=== PATIENT | female | born 1945 | race Caucasian/White ===

== ENCOUNTER 2022-03-24 11:01 | Emergency (ER) | payer MEDICARE ==
--- NOTE | 2022-03-24 12:39 | ER ---
Nurse's Notes [facility] Name: Angelique Avelar Age: 76 yrs Sex: Female : 1945 Arrival Date: 03/24/2022 Time: 11:07 Bed 26 Private MD: Diagnosis: Laceration without foreign body of left forearm Presentation: 03/24 12:03 Chief complaint: Patient states: I was holding a cat that did not want to go outside [facility] and it clung on to me and scratched my right arm. Coronavirus screen: At this time, the client does not indicate any symptoms associated with coronavirus-19. Ebola Screen: No symptoms or risks identified at this time. Initial Sepsis Screen: Does the patient meet any 2 criteria? No. Patient's initial sepsis screen is negative. Does the patient have a suspected source of infection? No. Patient's initial sepsis screen is negative. Risk Assessment: Do you want to hurt yourself or someone else? Patient reports no desire to harm self or others. Onset of symptoms was March 23, 2022. Care prior to arrival: None. 12:03 Method Of Arrival: Ambulatory [facility] 12:03 Acuity: NAN 4 bm7 Triage Assessment: 12:04 General: Appears in no apparent distress. comfortable, Behavior is calm, cooperative, bm7 appropriate for age. Pain: Complains of pain in dorsal aspect of left forearm Pain does not radiate. EENT: No deficits noted. No signs and/or symptoms were reported regarding the EENT system. Neuro: No deficits noted. Cardiovascular: No deficits noted. Respiratory: No deficits noted. GI: No deficits noted. No signs and/or symptoms were reported involving the gastrointestinal system. : No deficits noted. No signs and/or symptoms were reported regarding the genitourinary system. Derm: Skin is fragile, is thin, has skin tears on to the posterior forearm. Musculoskeletal: No deficits noted. No signs and/or symptoms reported regarding the musculoskeletal system. Injury Description: skin teart due to cat claws. Historical: - Allergies: 12:04 PENICILLINS; bm7 - Home Meds: 12:04 None [Active]; bm7 - PMHx: 12:04 COPD; Kidney stones; bm7 - PSHx: 12:04 None; bm7 - Immunization history:: Adult Immunizations up to date, Client reports having NOT received the Covid vaccine. - Social history:: Smoking status: Patient reports the use of cigarette tobacco products, smokes one pack cigarettes per day. Screenin:49 Abuse screen: Denies threats or abuse. Denies injuries from another. Nutritional ld1 screening: No deficits noted. Tuberculosis screening: No symptoms or risk factors identified. Fall Risk None identified. Assessment: 12:50 General: Appears in no apparent distress. comfortable, Behavior is calm, cooperative, ld1 appropriate for age. Pain: Complains of pain in dorsal aspect of left forearm Pain does not radiate. Pain currently is 6 out of 10 on a pain scale. Quality of pain is described as throbbing, Pain began suddenly, Is continuous. Neuro: Level of Consciousness is awake, alert, obeys commands, Oriented to person, place, time, situation. Cardiovascular: Capillary refill < 3 seconds Patient's skin is warm and dry. Respiratory: Airway is patent Respiratory effort is even, unlabored. GI: Abdomen is flat, non-distended. : No signs and/or symptoms were reported regarding the genitourinary system. EENT: No signs and/or symptoms were reported regarding the EENT system. Derm: No signs and/or symptoms reported regarding the dermatologic system. Musculoskeletal: No signs and/or symptoms reported regarding the musculoskeletal system. Vital Signs: 12:02 BP 161 / 63; Pulse 60; Resp 16; Temp 98.6(TE); Pulse Ox 98% on R/A; Weight 37.19 kg bm7 (R); Height 5 ft. 4 in. (162.56 cm); Pain 5/10; 12:50 BP 159 / 62; Pulse 71; Resp 18; Pulse Ox 99% on R/A; ld1 12:02 Body Mass Index 14.08 (37.19 kg, 162.56 cm) bm7 ED Course: 11:07 Patient arrived in ED. mr 11:50 Concetta Castro [facility]C [facility] kb 11:50 Smith Howe MD is Attending Physician. kb 12:04 Triage completed. bm7 12:04 Arm band placed on right wrist. bm7 12:16 Linda Ornelas, RN is Primary Nurse. 3 12:49 Patient has correct armband on for positive identification. Placed in gown. Bed in low ld1 position. Call light in reach. Side rails up X2. Pulse ox on. NIBP on. Door closed. Noise minimized. Warm blanket given. 12:49 No provider procedures requiring assistance completed. Patient did not have IV access ld1 during this emergency room visit. Administered Medications: 12:48 Drug: Tetanus-Diphtheria Toxoid Adult 0.5 ml {Branch Sales And Service Representative: [employer]. Exp: ld1 11/22/2023. Lot #: [id number]. } Route: IM; Site: right deltoid; 12:49 Follow up: Response: (VIS) Vaccine information sheet provided today. Questions and/or ld1 concerns addressed. VIS edition date: Feb 21, 2021.; No adverse reaction Medication: 12:50 Vaccine Information Statement (VIS) provided today. Questions and/or concerns ld1 addressed. VIS edition date: March 24, 2022. Outcome: 12:39 Discharge ordered by MD. coello 12:51 Discharged to home ambulatory. ld1 12:51 Condition: stable 12:51 Discharge instructions given to patient, family, Instructed on discharge instructions, follow up and referral plans. Demonstrated understanding of instructions, follow-up care. 12:51 Patient left the ED. ld1 Signatures: Concetta Castro, ADJUNCT PROFESSOR OF [employer]ORY-C ADJUNCT PROFESSOR OF [employer]ISTORY-Camilla Lancaster mr Eulalia Oconnor, RN RN bm7 Alecia Nixon, FLOYD RN ld1 Linda Ornelas, RN RN eh3
--- NOTE | 2022-03-24 12:40 | EDPHYS ---
Physician Documentation [facility] Name: Angelique Avelar Age: 76 yrs Sex: Female : 1945 Arrival Date: 03/24/2022 Time: 11:07 Bed 26 Private MD: ED Physician Smith Howe HPI: 03/24 12:31 This 76 yrs old Female presents to ER via Ambulatory with complaints of Skin Tear(s). kb 12:31 The patient has a laceration related to: scratched by cat occurred at home, and there kb are no complicating factors. The injury was accidental. The laceration(s) is(are) located on the dorsal aspect of left forearm. Onset: The symptoms/episode began/occurred yesterday. Associated signs and symptoms: The patient has no apparent associated signs or symptoms. The patient has not experienced similar symptoms in the past. The patient has not recently seen a physician. Pt reports her cat got scared of a tomcat that was outside and scratched her yesterday. States she hasn't been able to get the bleeding to stop and she also needs a tetanus shot. . Historical: - Allergies: 12:04 PENICILLINS; bm7 - Home Meds: 12:04 None [Active]; bm7 - PMHx: 12:04 COPD; Kidney stones; bm7 - PSHx: 12:04 None; bm7 - Immunization history:: Adult Immunizations up to date, Client reports having NOT received the Covid vaccine. - Social history:: Smoking status: Patient reports the use of cigarette tobacco products, smokes one pack cigarettes per day. ROS: 12:29 Constitutional: Negative for fever, chills, and weight loss. kb 12:29 Skin: Positive for laceration(s), of the dorsal aspect of left forearm. 12:29 All other systems are negative. Exam: 12:33 Constitutional: This is a well developed, well nourished patient who is awake, alert, kb and in no acute distress. Head/Face: Normocephalic, atraumatic. ENT: Moist Mucous membranes Cardiovascular: Regular rate and rhythm with a normal S1 and S2. No gallops, murmurs, or rubs. No pulse deficits. Respiratory: Respirations even and unlabored. No increased work of breathing. Talking in full sentences MS/ Extremity: Pulses equal, no cyanosis. Neurovascular intact. Full, normal range of motion. Neuro: Awake and alert, GCS 15, oriented to person, place, time, and situation. Moves all extremities. Normal gait. Psych: Awake, alert, with orientation to person, place and time. Behavior, mood, and affect are within normal limits. 12:33 Skin: injury, laceration(s), the wound is approximately 2 cm(s), of the dorsal aspect of left forearm, that can be described as clean, no foreign body, linear, without bleeding. Vital Signs: 12:02 BP 161 / 63; Pulse 60; Resp 16; Temp 98.6(TE); Pulse Ox 98% on R/A; Weight 37.19 kg bm7 (R); Height 5 ft. 4 in. (162.56 cm); Pain 5/10; 12:50 BP 159 / 62; Pulse 71; Resp 18; Pulse Ox 99% on R/A; ld1 12:02 Body Mass Index 14.08 (37.19 kg, 162.56 cm) bm7 MDM: 12:07 Patient medically screened. kb 12:29 Data reviewed: vital signs, nurses notes. Data interpreted: Pulse oximetry: on room air kb is 98 %. Interpretation: normal. Counseling: I had a detailed discussion with the patient and/or guardian regarding: the historical points, exam findings, and any diagnostic results supporting the discharge/admit diagnosis, the need for outpatient follow up, a family practitioner, to return to the emergency department if symptoms worsen or persist or if there are any questions or concerns that arise at home. 12:36 ED course: No signs of infection noted. Bleeding controlled at this time. . kb 03/24 12:08 Order name: Wound Care; Complete Time: 12:48 kb 03/24 12:08 Order name: Wound dressing; Complete Time: 12:48 kb Administered Medications: 12:48 Drug: Tetanus-Diphtheria Toxoid Adult 0.5 ml {Director Of Housing And Energy Services: [employer]. Exp: ld1 11/22/2023. Lot #: [id number]. } Route: IM; Site: right deltoid; 12:49 Follow up: Response: (VIS) Vaccine information sheet provided today. Questions and/or ld1 concerns addressed. VIS edition date: Feb 21, 2021.; No adverse reaction Disposition: 16:12 Co-signature as Attending Physician, Smith Howe MD. rn Disposition Summary: 03/24/22 12:39 Discharge Ordered Location: Home kb Condition: Stable kb Diagnosis - Laceration without foreign body of left forearm kb Followup: kb - With: Emergency Department - When: As needed - Reason: Worsening of condition Followup: kb - With: Private Physician - When: 2 - 3 days - Reason: Recheck today's complaints, Continuance of care, Re-evaluation by your physician Discharge Instructions: - Discharge Summary Sheet kb - Laceration Care, Adult, [id number] kb Forms: - Medication Reconciliation Form kb - Thank You Letter kb - Antibiotic Education kb - Prescription Opioid Use kb Signatures: Concetta Castro, FACTORY ASSEMBLER-C FACTORY ASSEMBLER-Ckb Smith Howe MD MD rn McCarthy, Brittany RN RN bm7 Alecia Nixon RN RN ld1
[2022-03-24] MEDS ORDERED: TETANUS & DIPHTHERIA TOX,ADULT 0.5 ML VIAL ONE (12:41)
[2022-03-24 13:46] VITALS: TEMP 98.6
[2022-03-24 13:49] VITALS: BP 159/62; O2SAT 99
== END 2022-03-24 12:51 | disposition home or self-care (01) ==
LOC: ER 11:01
DX: S51.812A Laceration without foreign body of left forearm, initial encounter (principal); F17.210 Nicotine dependence, cigarettes, uncomplicated; J44.9 Chronic obstructive pulmonary disease, unspecified; Z23 Encounter for immunization; Z88.0 Allergy status to penicillin
CPT/HCPCS: 90471; 90714; 99283

== ENCOUNTER 2024-03-14 08:52 | Emergency (ER) | payer MEDICARE, OTHER ==
--- OUTSIDE RECORDS SUMMARY | 2024-03-14 08:55 | XMS REPORT | Continuity of Care Document ---
Author Name Unknown Address [address] [facility] [place] [address] [facility] Address [address] [facility] [address] [place] [address] Care Team Providers Care [employer]f [employer] Worker Name Role Phone Homar Ortiz MD Primary Care Physician + [phone] GC_GCBZW_Kajacinto_S Attending Clinician Unavaila Tatum Larios Attending Clinician Samantha Singletary Attending Clinician Hayder_Mirta Attending Clinician Unavailable Doctor Unassigned, [place] Attending Clinician U marcelo Lacy RN, Celso Palencia Attending Clinician Unavail able TAMMIE QUINTANA Attending Clinician Unavailable Esme Santos MD Attending Clinician [phone] Tammie Quintana DO Attending Clinician [phone] David -Eulalia Guzmán Attending Clinician Homar Ortiz MD Attending Clinician [phone] HOMAR ORTIZ Attending Clinician Unavailable LALITHA MONK Attending Clinician Unavailable Lalitha Monk OD Attending Clinician [phone] Chris Balbuena MD Attending Clinician + [phone] HELDER DEL ROSARIO Attending Clinician UnavailFERNIE Byrnes Attending Clinician Unavailable Rosa Encarnacion Attending Clinician [phone] DENISHA APONTE Attending Clinician Unavailable Denisha Kline Attending Clinician [phone] Mary Stout Attending Clinician [phone] Lindsey Jeronimo Attending Clinician [phone] LINDSEY BOSWELL Attending Clinician Unavailable Simon DE LA CRUZ, Helder OlivaHMatt Attending Clinician + [phone], [facility] Attending Clinician Unavailable CHRIS BALBUENA Attending Clinician UnavailADRIÁN Holman Attending Clinician UnavailMIKAEL Stallings Attending Clinician Unavailhumberto mehta GC_GCBZW_Kadiyala_S Admitting Clinician Unavailmirta Singletary_A Admitting Clinician Unavailable TAMMIE QUINTANA Admitting Clinician Unavailable Tammie Quintana DO Admitting Clinician [phone] CHRIS BALBUENA Admitting Clinician Ismael flores Payers Payer Name Policy Type Policy Number Effective Date Expirati on Date Source [facility] (MEDICARE REPLACEMENT O) [id number] 2022 00:00:00 [employer] MED[employer]VANTAGE [id number] 2020 00:00:00 Problems Condition Name Condition Details Condition Category Status Onset Date Resolution Date Last Treatment Date Treating Clinician Comments Source Nicotine dependence Nicotine Dependence Problem Active 10-28 00:00: 00 [facility] Atrophic vaginitis Atrophic Vaginitis Problem Active 10-28 00:00: 00 [facility] Weight loss Weight Loss Problem Active 10-28 00:00: 00 [facility] Rheumatoid arthritis Rheumatoid Arthritis Problem Active 10-24 00:00: 00 [facility] Anxiety Anxiety Problem Active 10-24 00:00: 00 [facility] Depressive disorder Depressive Disorder Problem Active 10-24 00:00: 00 [facility] Abnormal heart beat Abnormal Heart Beat Problem Active 10-24 00:00: 00 [facility] Troponin I above reference range Troponin I above reference range Disease Active 2021-07 00:00: 00 [facility] Elevated brain natriureti c peptide (BNP) level Elevated brain natriureti c peptide (BNP) level Disease Active 2021-07 00:00: 00 [facility] Atrial fibrillati on with RVR Atrial fibrillati on with RVR Disease Active 2021-07 00:00: 00 [facility] Weight loss Weight loss Disease Active 2021-07 00:00: 00 [facility] Essential hypertensi on Essential hypertensi on Disease Active 12-05 00:00: 00 [facility] Arthritis, multiple joint involvemen t Arthritis, multiple joint involvemen t Disease Active 12-05 00:00: 00 [facility] Chronic midline low back pain without sciatica Chronic midline low back pain without sciatica Disease Active 12-05 00:00: 00 [facility] Social alcohol use Social alcohol use Disease Active 12-05 00:00: 00 [facility] Elevated liver enzymes Elevated liver enzymes Disease Active 12-05 00:00: 00 [facility] Nicotine dependence with current use Nicotine dependence with current use Disease Active 12-05 00:00: 00 [facility] Disease Active 12-05 00:00: 00 [facility] 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 Disease Active 12-05 00:00: 00 [facility] Nicotine dependence with current use Nicotine dependence with current use Disease Active 12-05 00:00: 00 [facility] Tinnitus of both ears Tinnitus of both ears Disease Active -14 00:00: 00 [facility] Anxiety Anxiety Disease Active -14 00:00: 00 [facility] Dry eye syndrome of both eyes Dry eye syndrome of both eyes Disease Active 2-09 00:00: 00 [facility] Decreased libido Decreased libido Disease Active 2017-07 00:00: 00 [facility] Dyspareuni a in female Dyspareuni a in female Disease Active 2017-07 00:00: 00 [facility] Vaginal atrophy Vaginal atrophy Disease Active 2017-07 00:00: 00 [facility] Pulmonary nodules Pulmonary nodules Disease Active 04-13 00:00: 00 [facility] Coronary artery calcificat ion seen on CAT scan Coronary artery calcificat ion seen on CAT scan Disease Active 04-13 00:00: 00 [facility] Osteoporos is Osteoporos is Disease Active 04-11 00:00: 00 [facility] Encounter to establish care with new doctor Encounter to establish care with new doctor Disease Active 04-06 00:00: 00 Overview: Formattin g of this note might be different from the original. Added automatic ally from request for surgery [id number] [facility] Cervical radiculopa thy Cervical radiculopa thy Disease Active 04-03 00:00: 00 [facility] Right-side d chest pain Right-side d chest pain Disease Active 04-03 00:00: 00 [facility] Tobacco use Tobacco use Disease Active 04-03 00:00: 00 [facility] Hyperchole sterolemia Hyperchole sterolemia Disease Active 03-25 00:00: 00 [facility] Microscopi c hematuria Microscopi c hematuria Disease Active 03-06 00:00: 00 [facility] Chronic left flank pain Chronic left flank pain Disease Active 03-01 00:00: 00 [facility] Neck pain Neck pain Disease Active 03-01 00:00: 00 [facility] Chronic right shoulder pain Chronic right shoulder pain Disease Active 03-01 00:00: 00 [facility] Postcoital bleeding Postcoital Bleeding Problem Active 2013-07 00:00: 00 [facility] Osteoarthr itis, multiple sites Osteoarthr itis, multiple sites Disease Active Overview: Formattin g of this note might be different from the original. Neck, shoulders [facility] COPD without exacerbati on COPD without exacerbati on Disease Active [facility] Allergies, Adverse Reactions, Alerts Allergy Name Allergy Type Status Severity Reaction(s) Onset Date Inactive Date Treating Clinician Comments Source ATORVAST ATIN DRUG INGREDI Active Diarrhea 10-24 00:00: 00 [facility] Atorvast atin Propensi ty to adverse reaction s to drug Active Nausea and/or Vomiting 10-24 00:00: 00 [facility] Atorvast atin Propensi ty to adverse reaction s Active Diarrhea 10-24 00:00: 00 [facility] Social History Social Habit Start Date Stop Date Quantity Comments Source History of tobacco use Cigarette Smoker [facility] History SDOH Alcohol Frequency [facility] History SDOH Alcohol Std Drinks [facility] History SDOH Alcohol Binge [facility] History SDOH Food Worry 2022-05-28 00:00:00 2022-05-28 00:00:00 1 [facility] History SDOH Food Scarcity 2022-05-28 00:00:00 2022-05-28 00:00:00 1 [facility] History SDOH Transport Med 2022-05-28 00:00:00 2022-05-28 00:00:00 2 [facility] History SDOH Transport Non-Med 2022-05-28 00:00:00 2022-05-28 00:00:00 2 [facility] Exposure to SARS-CoV-2 (event) 2022-05-15 00:00:00 2022-05-25 21:46:00 Not sure [facility] Tobacco Comment 2022-05-25 00:00:00 2022-05-25 00:00:00 Smokes 1 pack a day [facility] Tobacco use and exposure 2022-05-25 00:00:00 2022-05-25 00:00:00 Smokeless tobacco non-user [facility] Alcohol intake 2022-05-25 00:00:00 2022-05-25 00:00:00 Current drinker of alcohol (finding) [facility] Alcohol Comment 2018-03-01 00:00:00 2018-03-01 00:00:00 10 drinks per year [facility] Sex Assigned At 1945 00:00:00 1945 00:00:00 [facility] Smoking Status Start Date Stop Date Source Heavy Tobacco Smoker [facility] Smokes tobacco daily 2022-05-25 00:00:00 [facility] Occasional tobacco smoker 2018-05-31 00:00:00 [facility] Medications Ordered Medication Name Filled Medication Name Start Date Stop Date Current Medication? Ordering Clinician Indication Dosage Frequency Signature (SIG) Comments Components Source apixaban (ELIQUIS) tablet 5 mg 2021-07 02:00: 00 Yes 5mg 5 mg, Oral, BID, First dose on Wed05/26/22 at 2000, Until Discontinu ed, Routine
Indicatio ns: Non-Valvul ar Atrial Fibrillati on [facility] guaiFENesin 400 mg tablet 2021-07 00:00: 00 Yes [id number] 400mg Take 1 tablet by mouth every 4 (four) hours. [facility] Budesonide 90 mcg/actuati on aerosol powder 2021-07 00:00: 00 Yes [id number] 1{puff} Inhale 1 Puff in the morning and 1 Puff in the evening. [facility] albuterol sulfate 90 mcg/actuati on AePB 2021-07 00:00: 00 Yes [id number] 2{puff} Inhale 2 Puffs every 4 (four) hours as needed for Other (SOB). [facility] nicotine 21 mg/24 hr patch 2021-07 00:00: 00 09-25 05:59 :00 No [id number] 1{patch } Apply 1 Patch to area(s) every 24 (twenty-fo ur) hours for 120 days. [facility] apixaban 5 mg tablet 2021-07 00:00: 00 06-27 05:59 :00 No [id number] 5mg Take 1 tablet by mouth in the morning and 1 tablet in the evening. Do all this for 30 days. Indication s: atrial fibrillati on [facility] docusate 100 mg capsule 2021-07 00:00: 00 06-27 05:59 :00 No [id number] 100mg Take 1 capsule by mouth in the morning and 1 capsule in the evening. Do all this for 30 days. [facility] metoprolol succinate XL 25 mg 24 hr tablet 2021-07 00:00: 00 06-27 05:59 :00 No [id number] 25mg Take 1 tablet by mouth in the morning and 1 tablet in the evening. Do all this for 30 days. [facility] predniSONE 20 mg tablet 2021-07 00:00: 00 05-31 05:59 :00 No [id number] 40mg Take 2 tablets by mouth at bedtime for 3 days. [facility] ipratropium -albuteroL (DUONEB) 0.5 mg-3 mg(2.5 mg base)/3 mL nebulizer solution 3 mL 2021-07 17:45: 00 Yes 3mL 3 mL, Inhalation , QIDPRN, Starting on Wed05/26/22 at 1145, Until Discontinu ed, Routine, Wheezing [facility] enoxaparin (LOVENOX) injection 40 mg 2021-07 15:00: 00 05-26 22:25 :05 No 40mg 40 mg, Subcutaneo us, DAILY, First dose on Wed05/26/22 at 0900, Until Discontinu ed, Routine [facility] citrus select contrast media (CITRUS SELECT) oral liquid 700 mL 2021-07 08:15: 00 05-26 08:15 :00 No [id number] 700mL 700 mL, Oral, ONCE, 1 dose, On Wed05/26/22 at 0215, Routine [facility] iopamidol (ISOVUE 370-500 mL) injection 75 mL 2021-07 08:15: 00 05-26 08:15 :00 No [id number] 75mL 75 mL, Intravenou s, ONCE, 1 dose, On Wed05/26/22 at 0215, Routine [facility] nicotine (NICODERM) 21 mg/24 hr patch 1 Patch 2021-07 05:30: 00 Yes 1{patch } 1 Patch, Topical, Administer over 24 Hours, Q24H, First dose on Wed05/25/22 at 2330, Until Discontinu ed, Routine [facility] NaCl 0.9% (NS) IV infusion 1,000 mL 2021-07 05:30: 00 Yes 1000mL at 100 mL/hr, IV Infusion, CONTINUOUS , Starting on Wed05/25/22 at 2330, Until Discontinu ed, Routine [facility] predniSONE (DELTASONE) tablet 40 mg 2021-07 05:30: 00 05-30 02:59 :00 No 40mg 40 mg, Oral, QHS, 4 doses, First dose on Wed05/25/22 at 2330, Last dose on Wed05/28/22 at 2100, Routine [facility] ipratropium -albuteroL (DUONEB) 0.5 mg-3 mg(2.5 mg base)/3 mL nebulizer solution 3 mL 2021-07 05:30: 00 05-26 17:35 :42 No 3mL 3 mL, Inhalation , QID, First dose on Wed05/25/22 at 2330, Until Discontinu ed, Routine [facility] budesonide (PULMICORT RESPULE) nebulizer solution 0.5 mg 2021-07 05:30: 00 05-26 17:35 :19 No .5mg 0.5 mg, Inhalation , BID, First dose on Wed05/25/22 at 2330, Until Discontinu ed, Routine [facility] metoprolol succinate XL (TOPROL XL) tablet 25 mg 2021-07 04:30: 00 Yes 25mg 25 mg, Oral, BID, First dose on Wed05/25/22 at 2230, Until Discontinu ed, Routine [facility] docusate (COLACE) capsule 100 mg 2021-07 04:30: 00 Yes 100mg 100 mg, Oral, BID, First dose on Wed05/25/22 at 2230, Until Discontinu ed, Routine [facility] aspirin E.C. (ECOTRIN) tablet 325 mg 2021-07 04:30: 00 05-26 22:25 :05 No 325mg 325 mg, Oral, QAM WITH BREAKFAST, First dose on Wed05/25/22 at 2230, Until Discontinu ed, Routine [facility] ondansetron (ZOFRAN (PF)) injection 4 mg 2021-07 04:17: 41 Yes 4mg 4 mg, Slow IV Push, Q6HPRN, Starting on Wed05/25/22 at 2217, Until Discontinu ed, Routine, Nausea and Vomiting (N/V) [facility] aspirin 81 mg Cap 2021-07 21:49: 41 05-25 00:00 :00 No 81mg Take 81 mg by mouth. Patient takes differentl y; takes 1 cap weekly [facility] AMLODIPINE 5 mg tablet 2021-07 0- 00:00: 00 Yes [id number] TAKE ONE (1) TABLET(S) BY MOUTH ONCE A DAY. [facility] TIZANIDINE 2 mg tablet 02-09 00:00: 00 05-25 00:00 :00 No [id number] TAKE ONE (1) TABLET(S) BY MOUTH EVERY EIGHT HOURS NEEDED FOR MUSCLE SPASMS. [facility] DICLOFENAC SODIUM 1 % gel -13 00:00: 00 05-25 00:00 :00 No [id number] 103 APPLY FOUR GRAMS TO AFFECTED AREA(S) FOUR TIMES DAILY. [facility] DULoxetine 20 mg capsule 23 00:00: 00 05-25 00:00 :00 No [id number] 20mg Take 1 capsule by mouth 2 (two) times daily. [facility] aspirin 81 mg Cap 20 09:21: 38 Yes 81mg Take 81 mg by mouth. Patient takes differentl y; takes 1 cap weekly [facility] Diclofenac Sodium (VOLTAREN) 1 % gel 12-05 00:00: 00 Yes [id number] Apply to area(s) 4 (four) times daily. Apply 4 g qid [facility] alendronate 70 mg tablet 20 00:00: 00 05-25 00:00 :00 No [id number] 70mg Take 1 tablet by mouth weekly. [facility] rosuvastati n 10 mg tablet 12-05 00:00: 05-25 00:00 :00 No [id number] 10mg Take 1 tablet by mouth at bedtime. [facility] DULoxetine 20 mg CDRS 20 00:00: 05-25 00:00 :00 No [id number] 20mg Take 20 mg by mouth 2 (two) times daily. [facility] nicotine 14 mg/24 hr patch 12-05 00:00: 05-25 00:00 :00 No [id number] 1{patch } Apply 1 Patch to area(s) every 24 (twenty-fo ur) hours. Apply 21mg patch daily x 6 weeks; then apply 14mf patch daily x 2 weeks; then apply 7mg patch daily x 2 weeks. Stop smoking on initiation of therapy [facility] nicotine 21 mg/24 hr patch 12-05 00:00: 05-25 00:00 :00 No [id number] 1{patch } Apply 1 Patch to area(s) daily. Apply 21mg patch daily x 6 weeks; then apply 14mf patch daily x 2 weeks; then apply 7mg patch daily x 2 weeks. Stop smoking on initiation of therapy [facility] nicotine 7 mg/24 hr patch 20 00:00: 05-25 00:00 :00 No [id number] 1{patch } Apply 1 Patch to area(s) every 24 (twenty-fo ur) hours. Apply 21mg patch daily x 6 weeks; then apply 14mg patch daily x 2 weeks; then apply 7mg patch daily x 2 weeks. Stop smoking on initiation of therapy [facility] amLODIPine 5 mg tablet 12-05 00:00: 00 04-21 00:00 :00 No [id number] 2.5mg Take 0.5 tablets by mouth daily. [facility] tiZANidine 2 mg tablet 20 00:00: 02-09 00:00 :00 No [id number] 1mg Take 0.5 tablets by mouth every 8 (eight) hours as needed (muscle spasms). [facility] ondansetron (ZOFRAN) 4 mg tablet 08-15 00:00: 00 05-25 00:00 :00 No [id number] 4mg Take 1 tablet by mouth every 8 (eight) hours as needed for Nausea and Vomiting (N/V). [facility] meloxicam 7.5 mg tablet 2020-07 00:00: 00 05-25 00:00 :00 No [id number] 7.5mg Take 1 tablet by mouth once daily as needed (back pain). [facility] Calcium-Cho lecalcifero l, D3, (CALCIUM 600 + D,3,) 600 mg calcium- 200 unit Cap 08-27 00:00: 00 05-25 00:00 :00 No 1{capsu le} Take 1 capsule by mouth daily. (OR YOU CAN USE CALCIUM CITRATE PLUS D) [facility] carvedilol 25 mg tablet Take 1 tablet twice a day by oral route. carvedilol 25 mg tablet Take 1 tablet twice a day by oral route. No 1 BID carvedilol 25 mg tablet Take 1 tablet twice a day by oral route. [facility] Eliquis 2.5 mg tablet TAKE ONE (1) TABLET(S) BY MOUTH TWICE A DAY. Eliquis 2.5 mg tablet TAKE ONE (1) TABLET(S) BY MOUTH TWICE A DAY. No Eliquis 2.5 mg tablet TAKE ONE (1) TABLET(S) BY MOUTH TWICE A DAY. [facility] estradiol 0.01% (0.1 mg/gram) vaginal cream INSERT 0.5 GRAMS VAGINALLY 3 TIMES A WEEK AT BEDTIME. estradiol 0.01% (0.1 mg/gram) vaginal cream INSERT 0.5 GRAMS VAGINALLY 3 TIMES A WEEK AT BEDTIME. No .5g Q56H estradiol 0.01% (0.1 mg/gram) vaginal cream INSERT 0.5 GRAMS VAGINALLY 3 TIMES A WEEK AT BEDTIME. [facility] folic acid folic acid No folic acid [facility] Lumigan 0.01 % eye drops INSTILL ONE (1) DROP(S) IN EACH EYE ONCE A DAY AT BEDTIME. Lumigan 0.01 % eye drops INSTILL ONE (1) DROP(S) IN EACH EYE ONCE A DAY AT BEDTIME. No Lumigan 0.01 % eye drops INSTILL ONE (1) DROP(S) IN EACH EYE ONCE A DAY AT BEDTIME. [facility] paroxetine 10 mg tablet TAKE ONE (1) TABLET(S) BY MOUTH ONCE A DAY IN THE MORNING. paroxetine 10 mg tablet TAKE ONE (1) TABLET(S) BY MOUTH ONCE A DAY IN THE MORNING. No paroxetine 10 mg tablet TAKE ONE (1) TABLET(S) BY MOUTH ONCE A DAY IN THE MORNING. [facility] Restasis 0.05 % eye drops in a dropperette INSTILL ONE (1) AFFECTED EYE(S) TWICE A DAY. Restasis 0.05 % eye drops in a dropperette INSTILL ONE (1) AFFECTED EYE(S) TWICE A DAY. No Restasis 0.05 % eye drops in a dropperett e INSTILL ONE (1) AFFECTED EYE(S) TWICE A DAY. [facility] Vital Signs Vital Name Observation Time Observation Value Comments S ource BP Systolic 2023-10-25 00:00:00 150 mm[Hg] [facility] BMI (Body Mass Index) 2023-10-25 00:00:00 14.7 kg/m2 [facility] BP Diastolic 2023-10-25 00:00:00 73 mm[Hg] [facility] Body Weight 2023-10-25 00:00:00 85.6 [lb_av] [facility] Height 2023-10-25 00:00:00 64 [in_i] [facility] Systolic blood pressure 2022-05-27 18:29:00 136 mm[Hg] [facility] Diastolic blood pressure 2022-05-27 18:29:00 68 mm[Hg] [facility] Heart rate 2022-05-27 18:29:00 60 /min [facility] Body temperature 2022-05-27 18:29:00 36.39 Polly [facility] Respiratory rate 2022-05-27 18:29:00 18 /min [facility] Oxygen saturation in Arterial blood by Pulse oximetry 2022-05-27 18:29:00 98 /min [facility] Body weight 2022-05-27 09:46:00 43.5 kg [facility] BMI 2022-05-27 09:46:00 16.46 kg/m2 [facility] Body height 2022-05-26 04:30:00 162.6 cm [facility] Procedures Procedure Date / Time Performed Performing Clinician Source US, transvaginal 2023-10-29 00:00:00 [facility] MAMMO, screening, digital, bilateral 2023-10-25 00:00:00 [facility] AUTHORIZATION FOR RELEASE OF PHI 2022-07-31 06:01:00 Doctor Unassigned, [place] [facility] BASIC METABOLIC PANEL (NA, K, CL, CO2, GLUCOSE, BUN, CREATININE, CA) 2022-05-27 09:13:00 Bobby Willis [facility] CBC WITH DIFF 2022-05-27 09:13:00 [facility]-B[facility] 2022-05-27 09:13:00 Kendrick Willis [facility] TROPONIN I 2022-05-27 05:26:00 Bobby Willis [facility] TROPONIN I 2022-05-26 23:49:00 Bobby Willis [facility] TRANSTHORACIC ECHO (TTE) COMPLETE 2022-05-26 18:02:00 Emse Santos [facility] PREALBUMIN, SERUM 2022-05-26 11:21:00 [facility] PHOS[facility] 2022-05-26 11:21:00 Esme Santos [facility] CREATINE KINASE 2022-05-26 11:21:00 Esme Santos [facility] URIC ACID 2022-05-26 11:21:00 Esme Santos [facility] MAGNESIUM 2022-05-26 11:21:00 Esme Santos [facility] TROPONIN I 2022-05-26 11:21:00 Esme Santos [facility] THYROID STIMULATING HORMONE 2022-05-26 11:21:[address] [facility] COMP. METABOLIC PANEL ([id number]) 2022-05-26 11:21:00 Tom juan m [facility] LIPID PANEL ([id number])(TOTAL CHOLESTEROL, TRIGLYCERIDES, HDL) 2022-05-26 11:21:00 Tom juan m [facility] SEDIMENTATION RATE 2022-05-26 11:21:00 Esme Santos [facility] CBC WITH DIFF 2022-05-26 11:21:00 [facility] GLYCOSYLATED HEMOGLOBIN (A1C) 2022-05-26 11:21:[address] [facility] N-TERMINAL PRO-BNP 2022-05-26 11:21:[address] [facility] PROCALCITONIN 2022-05-26 11:21:00 Es[facility] ABDOMEN PELVIS W CONTRAST 2022-05-26 07:45:[address] [facility] CT THORAX W CONTRAST 2022-05-26 07:45:13 Sailaja Santos [facility] URINE DRUG (IMMUNOASSAY) - COMPREHENSIVE DRUG SCREEN 2022-05-26 06:25:[address] [facility] URINALYSIS 2022-05-26 06:25:00 Esme Santos [facility] URINE CULTURE 2022-05-26 06:25:00 Esme [facility] UREA NITROGEN, URINE RANDOM 2022-05-26 06:25:00 Tom juan m [facility] SODIUM, URINE R[place]OM 2022-05-26 06:25:00 Sailaja Santos [facility] PROTEIN CREAT RATIO URINE RANDOM 2022-05-26 06:25:[address] [facility] RESPIRATORY PANEL BY PCR 2022-05-26 04:53:[address] [facility] MRSA / MSSA SCREEN BY ISADORA SO 2022-05-26 04:51:00 Tom, Adnan [facility] Hysteroscopy [facility] Encounters Start Date/Time End Date/Time Encounter Type Admission Type Attending [facility] Facility Care Department Encounter ID Source 2023-10-29 00:00:00 2023-10-29 00:00:00 Leydi Martin MD: [address], [place] [address] , Ph. GC_GCBZW_Ka diyala_S [facility] - GC_GCBZW_Maritza [facility]* [id number] [facility] 2023-10-25 00:00:00 2023-10-25 00:00:00 PHUONG Cuevas: [address], [place] [address] , Ph. GC_GCBZW_Ka diyala_S [facility] - GC_GCBZW_[facility]* [id number] [facility] 2023-10-13 00:00:00 2023-10-13 00:00:00 Outpatient GC_GCBZW_Ka diyala_S PRIV PRIV [id number] [facility] 2023-09-29 00:00:00 2023-09-29 00:00:00 Outpatient GC_GCBZW_Ka diyala_S PRIV PRIV [id number] [facility] 2023-09-08 15:00:00 2023-09-08 16:00:00 Annual D2Me Sera Iyanlindseye 2.16.840. 1.703104. [id number] [id number] 2.16.840.1. [id number] [facility] 2023-05-14 00:00:00 2023-05-14 00:00:00 Outpatient GC_GCBZW_Ka diyala_S PRIV PRIV [id number] [facility] 2022-09-11 14:30:00 2022-09-11 15:30:00 KISHOR Singletary 2.16.840. [id number]. [id number] [id number] 2.16.840.1. 671128.4.6. [id number] E56 [facility] 2022-09-09 00:00:00 2022-09-09 00:00:00 Outpatient Tumelson_A [facility] [id number] [facility] 2022-09-09 00:00:00 2022-09-09 00:00:00 Outpatient Tumelson_A [facility] [id number] [facility] 2022-07-31 00:00:00 2022-07-31 00:00:00 Orders Only Doctor Unassigned, [place] [facility] 1.2840.114 350.1.13.10 4.2.7.2.686 [id number] [facility] 2022-05-28 00:00:00 2022-05-28 00:00:00 Transition of Care Celso Lacy 1.2.840.114 350.1.13.10 4.2.7.2.686 [id number] [facility] 2022-05-25 21:19:00 2022-05-27 15:13:00 Outpatient TAMMIE CRUZ [facility] [id number] [facility] 2022-05-25 21:19:00 2022-05-27 15:13:00 Hospital Encounter Esme Santos David [facility] 1.2.840.114 350.1.13.10 4.2.7.2.686 [id number] [facility] 2022-05-22 16:30:00 2022-05-22 17:30:00 KISHOR Hernandez 2.16.840. [id number]. 4.6.83618 [id number] 2.16.840.1. 987052.4.6. [id number] [facility] 2022-04-21 00:00:00 2022-04-21 00:00:00 Homar De La Garza [facility] 1.2.840.114 350.1.13.10 4.2.7.2.686 [id number] [facility] 2022-03-06 10:00:00 2022-03-06 10:00:00 Outpatient R HOMAR ORTIZ [facility] [id number] [facility] 2022-03-06 10:00:00 2022-03-06 10:00:00 Outpatient R HOMAR ORTIZ [facility] [id number] [facility] 2022-02-02 10:00:00 2022-02-02 10:00:00 Outpatient LALITHA GROVES [facility] [id number] [facility] 2022-02-01 00:00:00 2022-02-01 00:00:[address] [facility] 1.2.840.114 350.1.13.10 4.2.7.2.686 [id number] [facility] 2022-01-30 08:01:00 2022-01-30 08:01:00 Outpatient DMG DM [id number] [facility] 2022-01-28 00:00:00 2022-01-28 00:00:00 Homar De La Garza [facility] 1.2.840.114 350.1.13.10 4.2.7.2.686 [id number] [facility] 2022-01-14 09:00:00 2022-01-14 09:00:00 Outpatient DMG DMG [id number] [facility] 2022-01-12 09:00:00 2022-01-12 09:11:40 Outpatient LALITHA GROVES [facility] [id number] [facility] 2022-01-12 09:00:00 2022-01-12 09:11:40 [facility] 1.2.840.114 350.1.13.10 4.2.7.2.686 [id number] [facility] 2021-12-05 09:00:00 2021-12-05 10:10:37 Outpatient R HOMAR ORTIZ [facility] [id number] [facility] 2021-12-05 09:00:00 2021-12-05 10:10:37 Office Visit Homar Ortiz [facility] 1.2.840.114 350.1.13.10 4.2.7.2.686 [id number] [facility] 2021-12-05 09:00:00 2021-12-05 10:10:37 Outpatient R HOMAR ORTIZ [facility] [id number] [facility] 2021-12-05 00:00:00 2021-12-05 00:00:00 Telephone Homar Ortiz [facility] 1.2.840.114 350.1.13.10 4.2.7.2.686 [id number] [facility] 2021-11-28 00:00:00 2021-11-28 00:00:00 Refill Homar Ortiz [facility] 1.2.840.114 350.1.13.10 4.2.7.2.686 [id number] [facility] 2021-11-18 14:00:00 2021-11-18 14:00:00 Outpatient R HOMAR ORTIZ [facility] [id number] [facility] 2021-11-05 13:00:00 2021-11-05 13:00:00 Outpatient R HOMAR ORTIZ [facility] [id number] [facility] 2021-10-29 00:00:00 2021-10-29 00:00:00 Telephone Chris Balbuena [facility] 1.2.840.114 350.1.13.10 4.2.7.2.686 [id number] [facility] 2021-10-28 00:00:00 2021-10-28 00:00:00 Refill Chris Balbuena [facility] 1.2.840.114 350.1.13.10 4.2.7.2.686 [id number] [facility] 2021-10-24 00:00:00 2021-10-24 00:00:00 Orders Only Doctor Unassigned, [place] [facility] 1.2.840.114 350.1.13.10 4.2.7.2.686 [id number] [facility] 2021-10-23 10:00:00 2021-10-23 10:00:00 Outpatient HELDER FERRER [facility] [id number] [facility] 2021-10-23 10:00:00 2021-10-23 10:00:00 Outpatient HELDER FERRER [facility] [id number] [facility] 2021-10-23 10:00:00 2021-10-23 10:00:00 Outpatient HELDER FERRER [facility] [id number] [facility] 2021-10-17 11:00:00 2021-10-17 11:00:00 Outpatient FERNIE CARRILLO [facility] [id number] [facility] 2021-10-16 09:00:00 2021-10-16 09:00:00 Outpatient HELDER FERRER [facility] [id number] [facility] 2021-10-13 00:00:00 2021-10-13 00:00:00 Orders Only Doctor Unassigned, [place] [facility] 1.2840.114 350.1.13.10 4.2.7.2.686 [id number] [facility] 2021-08-15 10:03:00 2021-08-15 14:28:00 Emergency Rosa Gregg [facility] 1.2840.114 350.1.13.10 4.2.7.2.686 [id number] [facility] 2021-08-15 09:00:00 2021-08-15 09:27:34 Outpatient DENISHA EASLEY [facility] [id number] [facility] 2021-08-15 09:00:00 2021-08-15 09:20:00 Urgent Care Denisha Aponte Cathy [facility] 1.840.114 350.1.13.10 4.2.7.2.686 [id number] [facility] 2021-08-15 09:00:00 2021-08-15 09:00:00 Outpatient DENISHA EASLEY [facility] [id number] [facility] 2021-08-15 00:00:00 2021-08-15 00:00:00 Orders Only Doctor Unassigned, [place] [facility] 1.2840.114 350.1.13.10 4.2.7.2.686 [id number] [facility] 2021-05-30 12:05:12 2021-05-30 12:35:12 Office Visit Lindsey Boswell [facility] 1.2.840.114 350.1.13.10 4.2.7.2.686 [id number] [facility] 2021-05-30 12:30:00 2021-05-30 12:30:00 Outpatient R LINDSEY BOSWELL [facility] [id number] [facility] 2021-05-30 12:30:00 2021-05-30 12:30:00 Outpatient LINDSEY GOLD [facility] [id number] [facility] 2021-05-05 00:00:00 2021-05-05 00:00:00 RefChris Villareal A [facility] 1.2.840.114 350.1.13.10 4.2.7.2.686 [id number] [facility] 2021-04-28 10:00:00 2021-04-28 10:00:00 Outpatient HELDER FERRER [facility] [id number] [facility] 2021-04-28 10:00:00 2021-04-28 10:00:00 Outpatient R HELDER DEL ROSARIO [facility] [id number] [facility] 2021-04-25 00:00:00 2021-04-25 00:00:00 Telephone Helder Del Rosario [facility] 1.2.840.114 350.1.13.10 4.2.7.2.686 [id number] [facility] 2021-04-10 10:15:00 2021-04-10 10:15:00 Outpatient HELDER DEL ROSARIO [facility] [id number] [facility] 2021-04-04 00:00:00 2021-04-04 00:00:00 Telephone Helder Del Rosario [facility] 1.2.840.114 350.1.13.10 4.2.7.2.686 [id number] [facility] 2021-03-31 13:00:00 2021-03-31 23:59:00 Hospital Encounter Helder Del Rosario [facility] 1.2.840.114 350.1.13.10 4.2.7.2.686 [id number] [facility] 2021-03-31 13:54:17 2021-03-31 14:09:17 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 Visit 2, Adc Lab Helder Del Rosario [facility] 1.2.840.114 350.1.13.10 4.2.7.2.686 [id number] [facility] 2021-03-31 11:30:00 2021-03-31 12:13:07 Outpatient HELDER FERRER [facility] [id number] [facility] 2021-03-31 11:18:34 2021-03-31 12:13:07 Office Visit Helder Del Rosario [facility] 1.2.840.114 350.1.13.10 4.2.7.2.686 [id number] [facility] 2021-03-31 11:30:00 2021-03-31 11:30:00 Outpatient HELDER FERRER [facility] [id number] [facility] 2021-01-23 00:00:00 2021-01-23 00:00:00 Outpatient CHRIS DIAZ [facility] [id number] [facility] 2021-01-10 00:00:00 2021-01-10 00:00:00 Outpatient CHRIS DIAZ [facility] [id number] [facility] 2020-12-20 10:00:00 2020-12-20 10:00:00 Outpatient ADRIÁN SCHULTZ [facility] [id number] [facility] 2020-10-24 09:30:00 2020-10-24 09:30:00 Outpatient HELDER FERRER [facility] [id number] [facility] 2020-10-23 00:00:00 2020-10-23 00:00:00 Outpatient R MIKAEL PARKER [facility] [id number] [facility] 2020-10-16 13:00:00 2020-10-16 13:00:00 Outpatient FERNIE CARRILLO [facility] [id number] [facility] 2020-09-17 00:00:00 2020-09-17 00:00:00 Outpatient CHRIS DIAZ [facility] [id number] [facility] 2020-08-27 13:00:00 2020-08-27 13:00:00 Outpatient CHRIS DIAZ [facility] [id number] [facility] 2020-01-11 10:12:34 2020-01-11 23:59:00 Outpatient CHRIS DIAZ [facility] [id number] [facility] 2019-10-23 13:30:00 2019-10-23 13:30:00 Outpatient Alison DEL ROSARIOHELDER BOCANEGRA [facility] [id number] [facility] 2019-10-02 09:30:00 2019-10-02 09:30:00 Outpatient CHRIS DIAZ [facility] [id number] [facility] 2019-09-28 11:00:00 2019-09-28 11:00:00 Outpatient Alison DEL ROSARIOHELDER BOCANEGRA [facility] [id number] [facility] Results Test Description Test Time Test Comments Results Result Co mments Source [facility] MedicalUrinalysis macro (dipstick) panel - [id number] 10:26:03* Test Item Value Reference Range Interpretation Comme nts Leukocytes (test code = Leukocytes) Negative Nitrite (test code = Nitrite) negative Urobilinogen (test code = Urobilinogen) Normal Protein (test code = Protein) Negative pH (test code = pH) 6.0 Blood (test code = Blood) Non-Hemolyzed: Moderate Specific Cambria (test code = Specific Cambria) 1.020 Ketone (test code = Ketone) Negative Bilirubin (test code = Bilirubin) Negative Glucose (test code = Glucose) Negative Appearance (test code = Appearance) Clear Color (test code = Color) Yellow Arpan Holleypap, LB + [id number] 00:00:00* Test Item Value Reference Range Interpretation Comme nts LMP date: (test code = LMP date:) 07/19/1991 Pap, liquid-based (test code = Pap, liquid-based) nilm nilm source (liquid-based cytology): (test code = source (liquid-based cytology):) cervical (which includes endocervical) HPV high risk DNA (non 16/18) (test code = HPV high risk DNA (non 16/18)) not detected not detected HPV high risk DNA type 16 (test code = HPV high risk DNA type 16) not detected not detected HPV high risk DNA type 18 (test code = HPV high risk DNA type 18) not detected not detected Arpan Amin [id number] 00:37:25* Test Item Value Reference Range Interpretation Comments TROPONIN I (test code = 6383478296) 0.016 ng/mL See_Comment [Automated message] The system which generated this result transmitted reference range: <=0.034. The reference range was not used to interpret this result as normal/abnormal. STIVEN (test code = STIVEN) Reference (Normal) Range (defined by the 99th percentile reference limit): <= 0.034 ng/mL Note: Cardiac troponin begins to rise 3-4 hours after the onset of ischemia. Repeat in 4-6 hours if the sample was drawn within 3-4 hours of the onset of the symptom and found normal. Diagnosis of myocardial injury is made with acute changes in cTn concentrations with at least one serial sample above the 99th percentile upper reference limit (URL), taken together with the patient's clinical presentation. Biotin has been reported to cause a negative bias, interpret results relative to patient's use of biotin. Lab Interpretation (test code = 86532-5) Normal [facility] 22:46:58* Test Item Value Reference Range Interpretation Comme nts Height (test code = 0711447856) in Weight (test code = 5464876105) lbs Systolic BP (test code = 2746441598) mmHg Diastolic BP (test code = 4439677424) mmHg Heart Rate (test code = 0421783187) bpm BSA (test code = 9937843904) 1.39 m2 Ao root diam (test code = 0603353537) 3.00 cm Aortic root (test code = 3397506515) 3.0 cm Ao root annulus (test code = 0915051082) 3.0 cm LVOT diameter (test code = 4041303271) 1.82 cm LVOT area (test code = 8573009347) 2.60 cm2 LVIDD (test code = 0358963036) 3.10 cm Left Ventricular End Diastolic Volume by Teichholz Method (test code = 7532650) 38.4 mL IVS (test code = 3127381279) 1.23 cm Interventricular Septum Diastolic Thickness by 2D (test code = 6362410) 1.23 cm LVPWD (test code = 1923585650) 1.23 cm PW (test code = 7890544059) 1.23 cm 0.6-1.1 EF(Teich) (test code = 5657469375) 65.50 % LVIDS (test code = 4456648847) 2.03 cm Left Ventricular End Systolic Volume by Teichholz Method (test code = 5334862) 13.2 mL FS (test code = 3700776250) 35 % EF - 2D (test code = 73937787) 65.50 % LA size (test code = 2764871287) 2.9 cm TR Peak Jamal (test code = 2349424754) 241.3 cm/s Triscuspid Valve Regurgitation Peak Gradient (test code = 8974420026) mmHg LAV(MOD-sp4) (test code = 5151208976) 39.60 mL E wave decelartion time (test code = 7653002797) 0.20 s MV stenosis pressure 1/2 time (test code = 6068693961) 58.4 ms MV Peak E Jamal (test code = 9707743287) 94.0 cm/s MV Peak A Jamal (test code = 6656277449) 75.9 cm/s E/A ratio (test code = 1366117948) ratio MR max PG (test code = 9217676361) 104.20 mm[Hg] MR max jamal (test code = 4876339959) 510.00 cm/s Mr max jamal (test code = 2614032556) 510.0 m/s MV Prop V (test code = 5616665395) 35.50 cm/s MV E/e' septal (test code = 9818557173) 13.9 cm/s Tapse (test code = 6618019052) 1.49 cm LVOT stroke volume (test code = 9284745679) 78.40 cm3 LVOT peak jamal (test code = 4532451030) 138.5 cm/s LVOT mn grad (test code = 7023980556) mmHg AV LVOT peak gradient (test code = 0875082662) mmHg LVOT peak VTI (test code = 6343797442) 30.1 cm LV V1 mean (test code = 0034620478) 92.20 cm/s Aortic valve mean velocity (test code = 1695911502) 103.5 cm/s Ao peak jamal (test code = 8542381758) 136.3 cm/s Ao VTI (test code = 8586450643) 32.7 cm AV area by cont VTI (test code = 5099995979) 2.4 cm2 AV area peak jamal (test code = 6386196481) 2.6 cm2 Ao max PG (test code = 1510617419) 7.40 mm[Hg] AV peak gradient (test code = 7091658551) mmHg AV valve area (test code = 1503945783) 2.40 cm2 AV mean gradient (test code = 8484145184) mmHg Radiology Study observation (narrative) (test code = 75361-7) STIVEN (test code = STIVEN) ?Left?Ventricle: Left ventricle size is normal. Normal wall thickness. Normal wall motion. Normal systolic function with a visually estimated EF of 60 - 65%. Normal diastolic function. ?Left?Atrium: Left atrium size is normal. ?Tricuspid?Valve: Right ventricular systolic pressure is normal. ?RA pressure is 0-5 mmHg. Left VentricleLeft ventricle size is normal. Normal wall thickness. Normal wall motion. Normal systolic function with a visually estimated EF of 60 - 65%. Normal diastolic function.Right VentricleRight ventricle size is normal. Normal systolic function.Left AtriumLeft atrium size is normal.Right AtriumRight atrium size is normal. There is a prominent Eustachian valve.Mitral ValveMitral valve structure is normal. Trace transvalvular regurgitation.Tricusp id ValveTricuspid valve structure is normal. Trace transvalvular regurgitation. Right ventricular systolic pressure is normal. RA pressure is 0-5 mmHg.Aortic ValveTricuspid. Mildly thickened cusps.Pulmonic ValveNot well visualized.Ascending AortaNormal sized aorta.PericardiumThe pericardium is normal.Study DetailsStudy quality was adequate. A complete echocardiogram was performed using 2D, color flow Doppler and spectral Doppler. [facility]
[2024-03-14] MEDS ORDERED: MORPHINE 4 MG/ML SYR ONE (09:45)
[2024-03-14] MEDS ORDERED: ONDANSETRON 4 MG/2 ML VIAL ONE (09:45)
[2024-03-14 09:51] LABS: Absolute Basophils 0.1 K/uL (0-0.5); Absolute Eosinophils 0.3 K/uL (0-0.5); Absolute Lymphocytes (CBC) 1.3 K/uL (0.7-4.9); Absolute Monocytes 0.5 K/uL (0.1-1.3); Absolute Neutrophil 3.4 K/uL (1.8-8.0); Basophils % 1.2 % (0-1.3); Eosinophils % 4.9 % (0-4.4); Hematocrit 34.5 % (36.0-45.0); Hemoglobin 11.7 g/dL (12.0-15.0); Lymphocytes % 23.4 % (15.3-44.8); MCH 32.1 pg (27.0-35.0); MCV 94.5 fL (80-100); MPV 6.9 fL (7.6-11.3); Monocytes % 9.2 % (3.3-12.3); Neutrophils % 61.3 % (41.7-73.7); Nucleated Red Blood Cells % 0.1 % (0-0); Platelets 278 thou/uL (152-406); RBC Red Blood Cell Count 3.65 M/uL (3.86-4.86); Red Cell Distribution Width 14.2 % (12.1-15.2)
[2024-03-14 09:57] LABS: Specific Gravity 1.023 (1.005-1.030); Urine Bacteria None Seen /HPF (<20); Urine Bilirubin NEGATIVE (Negative); Urine Blood 1+ (Negative); Urine Clarity Extremely Turbid (Clear); Urine Color Yellow (Yellow); Urine Glucose NEGATIVE (Negative); Urine Ketones NEGATIVE (Negative); Urine Microscopic Reflex YN ORDER UMIC; Urine Nitrite NEGATIVE (Negative); Urine Protein NEGATIVE (Negative); Urine RBC <5 /HPF (None Seen); Urine Urobilinogen Normal (Normal); Urine WBC <5 /HPF (<5)
[2024-03-14 09:58] LABS: Sqamous Epithelial <5 /HPF (None Seen); Urine Culture Reflex Order NOT NEEDED; Urine Mucus Slight /HPF (None Seen)
[2024-03-14 10:06] LABS: Albumin 3.5 g/dL (3.4-5.0); Albumin/Globulin Ratio 1.1 (1.1-1.8); Anion Gap 4.9 mEq/L (5.0-15.0); Bilirubin Total 0.6 mg/dL (0.2-1.0); Globulin 3.1 g/dL (2.3-3.5); Potassium 3.9 mEq/L (3.5-5.1); Protein, Total 6.6 g/dL (6.4-8.2)
--- NOTE | 2024-03-14 10:42 | RAD REPORT ---
EXAM DESCRIPTION: CT - Abdomen Pelvis W Contrast - 03/14/2024 10:12 am CLINICAL HISTORY: LUQ abd pain;Abd pain COMPARISON: Abdomen Wo Contrast dated 03/03/2024 TECHNIQUE: Thin cut axial CT imaging of the abdomen and pelvis was performed following intravenous a dministration of iodinated contrast. Multiplanar reformats were generated and reviewed. All CT scans are performed using dose optimization technique as appropriate and may include automated exposure control or mA/KV adjustment according to patient size. FINDINGS: No suspicious findings in the lung bases. The liver, spleen, adrenal glands, and pancreas show no suspicious findings. Few punctate foci of adams cification in the liver and spleen are stable, may reflect sequelae of remote granulomatous infection . Gallbladder and biliary tree are also without suspicious finding. Symmetric renal function is seen with no hydronephrosis or suspicious renal mass. Confluent left supe rior pole cysts largest measuring 1.3 cm, and other sub centimeter scattered bilateral fluid density cortical lesions suggesting cysts, too small to characterize. Small focal parenchymal atrophy with murray b centimeter parenchymal calcification along the left interpolar kidney anteriorly, stable. No dilated bowel loops or bowel wall thickening. Nonspecific fluid filling throughout most of the col on, may relate to diarrheal state. Appendix is unremarkable. No free air, free fluid or inflammatory stranding. Mild distal colonic diverticulosis. No hernia, mass or bulky lymphadenopathy. The urinary bladder is without significant finding. No suspicious bony findings. Chronic appearance of central wedge compression deformity at L3. IMPRESSION: Nonspecific fluid filling throughout most of the colon, may relate to diarrheal state. N o other acute intra-abdominal process. Stable incidental findings as above.
[2024-03-14 10:46] LABS: Differential Total Cells Count 100; Eosinophils 3 % (0-3); Lymphocytes 19 % (15-42); Monocytes 17 % (0-10); Segmented Neutrophils 61 % (40-80)
[2024-03-14 10:47] LABS: Blood Morphology Comment NOT SEEN (NOT SEEN); Platelet Estimate ADEQ
--- NOTE | 2024-03-14 11:26 | ER ---
Nurse's Notes [facility] Name: Angelique Avelar Age: 78 yrs Sex: Female : 1945 Arrival Date: 03/14/2024 Time: 08:52 Bed 19 Private MD: Diagnosis: Abdominal pain, Generalized Presentation: 03/14 09:49 Chief complaint: Patient states: Abd pain X 1 day. Coronavirus screen: At this time, ld1 the client does not indicate any symptoms associated with coronavirus-19. Ebola Screen: No symptoms or risks identified at this time. Initial Sepsis Screen: Does the patient meet any 2 criteria? No. Patient's initial sepsis screen is negative. Does the patient have a suspected source of infection? No. Patient's initial sepsis screen is negative. Risk Assessment: Do you want to hurt yourself or someone else? Patient reports no desire to harm self or others. Onset of symptoms was March 14, 2024 at 09:53. 09:49 Method Of Arrival: Ambulatory ld1 09:49 Acuity: NAN 3 ld1 Triage Assessment: 09:53 General: Appears in no apparent distress. uncomfortable, Behavior is calm, cooperative, ld1 appropriate for age. Pain: Complains of pain in abdomen Pain does not radiate. Pain currently is 8 out of 10 on a pain scale. Quality of pain is described as throbbing, Pain began 1 day ago. Is continuous. EENT: No signs and/or symptoms were reported regarding the EENT system. Neuro: Level of Consciousness is awake, alert, obeys commands, Oriented to person, place, time, situation, Appropriate for age. Cardiovascular: Capillary refill < 3 seconds Patient's skin is warm and dry. Respiratory: Airway is patent Respiratory effort is even, unlabored. GI: Abdomen is flat, non-distended, Reports lower abdominal pain, upper abdominal pain. : No signs and/or symptoms were reported regarding the genitourinary system. Derm: No signs and/or symptoms reported regarding the dermatologic system. Musculoskeletal: No signs and/or symptoms reported regarding the musculoskeletal system. Historical: - Allergies: 09:53 PENICILLINS; ld1 - PMHx: 09:53 COPD; Kidney stones; ld1 - Immunization history:: Adult Immunizations up to date. - Infectious Disease History:: Denies. - Social history:: Smoking status: Patient denies any tobacco usage or history of. Screenin:54 [facility] ED Fall Risk Assessment (Adult) History of falling in the last 3 months, ld1 including since admission No falls in past 3 months (0 pts) Confusion or Disorientation No (0 pts) Intoxicated or Sedated No (0 pts) Impaired Gait No (0 pts) Mobility Assist Device Used No (0 pt) Altered Elimination No (0 pt) Score/Fall Risk Level 0 - 2 = Low Risk Oriented to surroundings, Maintained a safe environment, Educated pt \T\ family on fall prevention, incl call for assistance when getting out of bed, Assessed \T\ reinforced patient's understanding of fall precautions, Provided non-skid footwear, Hourly rounding (assess needs \T\ fall precautionary measures) done, Used ambulatory aids as needed (educated on \T\ assisted with), Used gait belt as appropriate. Abuse screen: Denies threats or abuse. Denies injuries from another. Nutritional screening: No deficits noted. Tuberculosis screening: No symptoms or risk factors identified. Assessment: 09:54 Reassessment: Patient appears in no apparent distress at this time. No changes from ld1 previously documented assessment. Patient and/or family updated on plan of care and expected duration. Pain level reassessed. Patient is alert, oriented x 3, equal unlabored respirations, skin warm/dry/pink. 11:02 Reassessment: Patient appears in no apparent distress at this time. No changes from ld1 previously documented assessment. Patient and/or family updated on plan of care and expected duration. Pain level reassessed. Patient is alert, oriented x 3, equal unlabored respirations, skin warm/dry/pink. 11:32 Reassessment: Patient appears in no apparent distress at this time. No changes from ld1 previously documented assessment. Patient and/or family updated on plan of care and expected duration. Pain level reassessed. Vital Signs: 09:49 BP 152 / 69; Pulse 66; Resp 18; Temp 98.1(TE); Pulse Ox 93% on R/A; Weight 48.53 kg; ld1 Height 5 ft. 4 in. ; Pain 8/10; 11:02 BP 103 / 60; Pulse 58; Resp 18; Pulse Ox 92% on R/A; ld1 11:32 BP 118 / 63; Pulse 61; Resp 18; Pulse Ox 95% on R/A; ld1 09:49 Body Mass Index 18.37 (48.53 kg, 162.56 cm) ld1 09:49 Pain Scale: Adult ld1 ED Course: 08:55 Patient arrived in ED. im 09:09 Sue Hnug MD is Attending Physician. sp3 09:34 Alecia Bolivar, FLOYD is Primary Nurse. ld1 09:44 Urinalysis w/ reflexes Sent. ld1 09:44 Lipase Sent. ld1 09:44 CMP Sent. ld1 09:44 CBC with Diff Sent. ld1 09:53 Triage completed. ld1 09:53 Arm band placed on right wrist. ld1 09:54 No provider procedures requiring assistance completed. Inserted saline lock: 22 gauge ld1 in right antecubital area, using aseptic technique. Blood collected. Flushed with 10 mL NS. 09:54 Patient has correct armband on for positive identification. Placed in gown. Bed in low ld1 position. Call light in reach. Side rails up X2. classroom monitor on. Pulse ox on. NIBP on. Door closed. Noise minimized. Warm blanket given. 10:14 CT Abd/Pelvis - IV Contrast Only In Process Unspecified. EDMS 11:24 Mtich Magana MD is Referral Physician. sp3 11:33 IV discontinued, intact, bleeding controlled, No redness/swelling at site. ld1 Administered Medications: 09:49 Drug: Ondansetron IVP 4 mg IVP once; over 2 minutes Route: IVP; Site: right antecubital;ld1 10:20 Follow up: Response: No adverse reaction ld1 09:49 Drug: morphine IVP or IV 4 mg IVP once over 4 mins Route: IVP; Infused Over: 4 mins; ld1 Site: right antecubital; 10:20 Follow up: Response: No adverse reaction ld1 Medication: 09:54 VIS not applicable for this client. ld1 Outcome: 11:25 Discharge ordered by . sp3 11:33 Discharged to home ambulatory, ld1 11:33 Condition: stable 11:33 Discharge instructions given to patient, Instructed on discharge instructions, follow up and referral plans. medication usage, Demonstrated understanding of instructions, follow-up care, medications, Prescriptions given X 1, 11:33 Patient left the ED. ld1 Signatures: Dispatcher [employer] Alecia Shrestha RN RN ld1 Sue Hung MD MD sp3 Brigida Markham
--- NOTE | 2024-03-14 11:26 | EDPHYS ---
Physician Documentation [facility] Name: Angelique Avelar Age: 78 yrs Sex: Female : 1945 Arrival Date: 03/14/2024 Time: 08:52 Bed 19 Private MD: ED Physician Sue Hung HPI: 03/14 09:39 This 78 yrs old Female presents to ER via Unassigned with complaints of Abdominal Pain. sp3 09:39 . sp3 09:40 78-year-old female with history of COPD and kidney stones presents with left upper sp3 quadrant abdominal pain for the last 2 weeks. Patient states that she was seen by her PCP and they ordered a CT scan which demonstrated a stone in the kidney but none in the ureter and no other abnormality. Patient states that the pain is continued and now has gotten worse. No vomiting, nausea, fever, diarrhea, back pain, chest pain, shortness of breath or any other significant findings on review of systems. She also denies melena, rectal bleeding, or any prior GI bleed. She also denies potential bad food, travel history, known sick contacts, prior splenic injury, or any other related pathology.. Historical: - Allergies: 09:53 PENICILLINS; ld1 - PMHx: 09:53 COPD; Kidney stones; ld1 - Immunization history:: Adult Immunizations up to date. - Infectious Disease History:: Denies. - Social history:: Smoking status: Patient denies any tobacco usage or history of. ROS: 09:41 Constitutional: Negative for fever, chills, and weight loss, Eyes: Negative for injury, sp3 pain, redness, and discharge, Neck: Negative for injury, pain, and swelling, Cardiovascular: Negative for chest pain, palpitations, and edema, Respiratory: Negative for shortness of breath, cough, wheezing, and pleuritic chest pain, Back: Negative for injury and pain, MS/Extremity: Negative for injury and deformity, Skin: Negative for injury, rash, and discoloration, Neuro: Negative for headache, weakness, numbness, tingling, and seizure, Psych: Negative for depression, anxiety, suicide ideation, homicidal ideation, and hallucinations, Allergy/Immunology: Negative for hives, rash, and allergies, Endocrine: Negative for neck swelling, polydipsia, polyuria, polyphagia, and marked weight changes, 09:41 All other systems are negative, Exam: 09:41 Constitutional: This is a well developed, well nourished patient who is awake, alert, sp3 and in no acute distress. Head/Face: Normocephalic, atraumatic. Eyes: Pupils equal round and reactive to light, extra-ocular motions intact. Lids and lashes normal. Conjunctiva and sclera are non-icteric and not injected. Cornea within normal limits. Periorbital areas with no swelling, redness, or edema. Neck: Trachea midline, no thyromegaly or masses palpated, and no cervical lymphadenopathy. Supple, full range of motion without nuchal rigidity, or vertebral point tenderness. No Meningismus. Chest/axilla: Normal chest wall appearance and motion. Nontender with no deformity. No lesions are appreciated. Cardiovascular: Regular rate and rhythm with a normal S1 and S2. No gallops, murmurs, or rubs. Normal PMI, no JVD. No pulse deficits. Respiratory: Lungs have equal breath sounds bilaterally, clear to auscultation and percussion. No rales, rhonchi or wheezes noted. No increased work of breathing, no retractions or nasal flaring. Back: No spinal tenderness. No costovertebral tenderness. Full range of motion. Skin: Warm, dry with normal turgor. Normal color with no rashes, no lesions, and no evidence of cellulitis. MS/ Extremity: Pulses equal, no cyanosis. Neurovascular intact. Full, normal range of motion. Neuro: Awake and alert, GCS 15, oriented to person, place, time, and situation. Cranial nerves II-XII grossly intact. Motor strength 5/5 in all extremities. Sensory grossly intact. Cerebellar exam normal. Normal gait. Psych: Awake, alert, with orientation to person, place and time. Behavior, mood, and affect are within normal limits. 09:41 Abdomen/GI: Left upper quadrant abdominal pain without peritoneal signs, rebound or guarding. No skin rash or evidence of zoster. No muscular pain along the latissimus dorsi back or chest musculature., Vital Signs: 09:49 BP 152 / 69; Pulse 66; Resp 18; Temp 98.1(TE); Pulse Ox 93% on R/A; Weight 48.53 kg; ld1 Height 5 ft. 4 in. ; Pain 8/10; 11:02 BP 103 / 60; Pulse 58; Resp 18; Pulse Ox 92% on R/A; ld1 11:32 BP 118 / 63; Pulse 61; Resp 18; Pulse Ox 95% on R/A; ld1 09:49 Body Mass Index 18.37 (48.53 kg, 162.56 cm) ld1 09:49 Pain Scale: Adult ld1 MDM: 09:10 Patient medically screened. sp3 09:42 Data reviewed: vital signs, nurses notes, lab test result(s), radiologic studies. ED sp3 course: 78-year-old female with left upper quadrant abdominal pain. Differential diagnosis includes gastritis, colitis, diverticulitis, kidney stone, UTI/pyelonephritis spectrum, functional abdominal pain, constipation, muscular pain, among others. I am not highly suspicious of AAA or aortic dissection, PE, acute coronary syndrome, or any other critical pathology including sepsis and shock. Workup will include CT scan of the abdomen pelvis, laboratory values, urine analysis and general supportive care including morphine, ondansetron. Final disposition pending workup and patient course.. 11:22 ED course: Patient's laboratory values are within normal limits. CT scan demonstrates sp3 fluid-filled state in the colon. I do not believe this is infectious in etiology at this time. I will place patient on Bentyl and have her follow-up with GI for further evaluation. No other critical surgical issue present at this time.. 03/14 09:32 Order name: CBC with Diff; Complete Time: 10:47 sp3 03/14 09:32 Order name: CMP; Complete Time: 10:44 sp3 03/14 09:32 Order name: Lipase; Complete Time: 10:44 sp3 03/14 09:32 Order name: Urinalysis w/ reflexes; Complete Time: 10:44 sp3 03/14 09:55 Order name: Manual Differential; Complete Time: 10:47 EDMS 03/14 09:32 Order name: CT Abd/Pelvis - IV Contrast Only; Complete Time: 10:44 sp3 03/14 09:32 Order name: IV Saline Lock; Complete Time: 09:45 sp3 03/14 09:32 Order name: Labs collected and sent; Complete Time: 09:45 sp3 03/14 09:32 Order name: Vital Signs; Complete Time: 09:49 sp3 Administered Medications: 09:49 Drug: Ondansetron IVP 4 mg IVP once; over 2 minutes Route: IVP; Site: right antecubital;ld1 10:20 Follow up: Response: No adverse reaction ld1 09:49 Drug: morphine IVP or IV 4 mg IVP once over 4 mins Route: IVP; Infused Over: 4 mins; ld1 Site: right antecubital; 10:20 Follow up: Response: No adverse reaction ld1 Disposition Summary: 03/14/24 11:25 Discharge Ordered Notes: Location: Home sp3 Condition: Stable sp3 Diagnosis - Abdominal pain, Generalized sp3 Followup: sp3 - With: Private Physician - When: Upon discharge from the Emergency Department - Reason: Continuance of care Followup: sp3 - With: Mitch Magana MD - When: Upon discharge from the Emergency Department - Reason: Recheck today's complaints Discharge Instructions: - Discharge Summary Sheet sp3 - Abdominal Pain, Adult sp3 Forms: - Medication Reconciliation Form sp3 - Antibiotic Education sp3 - Prescription Opioid Use sp3 - Patient Portal Instructions sp3 - Leadership Thank You Letter sp3 Prescriptions: - dicyclomine 10 mg Oral capsule - take 2 capsules ORAL route 3 times per day PRN pain/cramping; 20 capsule; sp3 Refills: 0, Product Selection Permitted Signatures: Dispatcher [employer] Alecia Shrestha RN RN ld1 Sue Hung MD MD sp3
[2024-03-14 11:40] VITALS: TEMP 98.1
[2024-03-14 11:44] VITALS: BP 118/63; O2SAT 95
== END 2024-03-14 11:33 | disposition home or self-care (01) ==
LOC: ER 08:52
DX: R10.84 Generalized abdominal pain (principal); J44.9 Chronic obstructive pulmonary disease, unspecified; Z87.442 Personal history of urinary calculi
CPT/HCPCS: 85025; 81001; 36415; 83690; 80053; 74177; Q9967; J2405; 96374; 96375; 99285

== ENCOUNTER 2024-03-28 11:40 | Inpatient (IN) | payer MEDICARE, OTHER ==
--- OUTSIDE RECORDS SUMMARY | 2024-03-28 11:43 | XMS REPORT | Continuity of Care Document ---
Author Name Unknown Address [address] [facility]. [address] [place] [address] [facility] Address [address] [facility] [address] [place] [address] Care Team Providers Care Optical Lathe Operator Name Role Phone Homar Ortiz MD Primary Care Physician + [phone] Liz Millard Attending Clinician GC_GCBZW_Kajacinto_S Attending Clinician Unavaila Tatum Larios Attending Clinician Samantha Singletary Attending Clinician Hayder_Slime Attending Clinician Unavailable Doctor Unassigned, [place] Attending Clinician U marcelo Lacy RN, Celso Palencia Attending Clinician Unavail able TAMMIE QUINTANA Attending Clinician Unavailable Esme Santos MD Attending Clinician [phone] Tammie Quintana DO Attending Clinician [phone] David -Eulalia Guzmán Attending Clinician [phone] Homar Ortiz MD Attending Clinician [phone] HOMAR ORTIZ Attending Clinician Unavailable LALITHA MONK Attending Clinician Unavailable Lalitha Monk OD Attending Clinician [phone] Karlene DE LA CRUZ, Chris Palencia Attending Clinician [phone] HELDER DEL ROSARIO Attending Clinician Unavaila FERNIE Matthews Attending Clinician Unavailable Rosa Encarnacion Attending Clinician [phone] DENISHA APONTE Attending Clinician Unavailable Denisha Kline Attending Clinician [phone] Mary Stout Attending Clinician [phone] Lindsey Jeronimo Attending Clinician [phone] LINDSEY BOSWELL Attending Clinician Unavailable Carin DE LA CRUZ, Helder KMattHMatt Attending Clinician + [phone], [facility] Attending Clinician Unavailable CHRIS BALBUENA Attending Clinician ADRIÁN Mccartney Attending Clinician UnavailMIKAEL Stallings Attending Clinician Unavailhumberto mehta GC_GCBZW_Kadiyala_S Admitting Clinician Ismael Singletary_Slime Admitting Clinician Unavailable TAMMIE QUINTANA Admitting Clinician Unavailable Tammie Quintana DO Admitting Clinician [phone] CHRIS BALBUENA Admitting Clinician Ismael flores Payers Payer Name Policy Type Policy Number Effective Date Expirati on Date Source FORMERLY [facility] (MEDICARE REPLACEMENT O) [id number] 2022 00:00:00 [employer] MED[employer] ADVANTAGE [id number] 2020 00:00:00 Problems Condition Name Condition Details [...] reference range Disease Active 2021-07 00:00: [address] [facility] [place] [facility] Elevated brain natriureti c peptide (BNP) level Elevated brain natriureti c peptide (BNP) level Disease Active 2021-07 00:00: 00 [facility] Atrial fibrillati on with RVR Atrial fibrillati on with RVR Disease Active 2021-07 00:00: 00 [facility] Weight loss Weight loss Disease Active 2021-07 00:00: 00 [facility] Essential hypertensi on Essential hypertensi on Disease Active 12-05 00:00: 00 [facility] Arthritis, multiple joint involvemen t Arthritis, multiple joint involvemen t Disease Active 12-05 00:00: 00 [facility] Chronic midline low back pain without sciatica Chronic midline low back pain without sciatica Disease Active 12-05 00:00: 00 [facility] Social alcohol use Social alcohol use Disease Active 12-05 00:00: 00 [facility] Elevated liver enzymes Elevated liver enzymes Disease Active 12-05 00:00: 00 [facility] Nicotine dependence with current use Nicotine dependence with current use Disease Active 12-05 00:00: 00 [facility] Disease Active 12-05 00:00: 00 [facility] 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 Disease Active 12-05 00:00: 00 [facility] Nicotine dependence with current use Nicotine dependence with current use Disease Active 12-05 00:00: 00 [facility] Tinnitus of both ears Tinnitus of both ears Disease Active - 00:00: 00 [facility] Anxiety Anxiety Disease Active 14 00:00: 00 [facility] Dry eye syndrome of both eyes Dry eye syndrome of both eyes Disease Active 09 00:00: 00 [facility] Decreased libido Decreased libido Disease Active 2017-07 00:00: 00 [facility] Dyspareuni a in female Dyspareuni a in female Disease Active 2017-07 00:00: 00 [facility] Vaginal atrophy Vaginal atrophy Disease Active 2018-1 1-13 00:00: 00 [facility] Pulmonary nodules Pulmonary nodules Disease Active 04-13 00:00: 00 [facility] Coronary artery calcificat ion seen on CAT scan Coronary artery calcificat ion seen on CAT scan Disease Active 04-13 00:00: 00 [facility] Osteoporos is Osteoporos is Disease Active 04-11 00:00: 00 [facility] Encounter to establish care with new doctor Encounter to establish care with new doctor Disease Active 04-06 00:00: 00 Overview: Formattin g of this note might be different from the original. Added automatic ally from request for surgery [id number] [facility] Cervical radiculopa thy Cervical radiculopa thy Disease Active 04-03 00:00: 00 [facility] Right-side d chest pain Right-side d chest pain Disease Active 04-03 00:00: 00 [facility] Tobacco use Tobacco use Disease Active 04-03 00:00: 00 [facility] Hyperchole sterolemia Hyperchole sterolemia Disease Active 03-25 00:00: 00 [facility] Microscopi c hematuria Microscopi c hematuria Disease Active 03-06 00:00: 00 [facility] Chronic left flank pain Chronic left flank pain Disease Active 03-01 00:00: 00 [facility] Neck pain Neck pain Disease Active 03-01 00:00: 00 [facility] Chronic right shoulder pain Chronic right shoulder pain Disease Active 03-01 00:00: 00 [facility] Postcoital bleeding Postcoital Bleeding Problem Active 2013-07 00:00: 00 [facility] Osteoarthr itis, multiple sites Osteoarthr itis, multiple sites Disease Active Overview: Formattin g of this note might be different from the original. Neck, shoulders [facility] COPD without exacerbati on COPD without exacerbati on Disease Active [facility] Allergies, Adverse Reactions, Alerts Allergy Name Allergy Type Status Severity Reaction(s) Onset Date Inactive Date Treating Clinician Comments Source ATORVAST ATIN DRUG INGREDI Active Diarrhea 10-24 00:00: 00 [facility] Atorvast atin Propensi ty to adverse reaction s to drug Active Nausea and/or Vomiting 10-24 00:00: 00 [facility] Atorvast atin Propensi ty to adverse reaction s Active Diarrhea 10-24 00:00: 00 [facility] Social History Social Habit Start Date Stop Date Quantity Comments Source History of tobacco use Cigarette Smoker [facility] History SDOH Alcohol Frequency [facility] History SDOH Alcohol Std Drinks [facility] History SDOH Alcohol Binge [facility] History SDOH Food Worry 2022-05-28 00:00:00 2022-05-28 00:00:00 1 [facility] History SDOH Food Scarcity 2022-05-28 00:00:00 2022-05-28 00:00:00 1 [facility] History SDOH Transport Med 2022-05-28 00:00:00 2022-05-28 00:00:00 2 [facility] History SDOH Transport Non-Med 2022-05-28 00:00:00 2022-05-28 00:00:00 2 [facility] Exposure to SARS-CoV-2 (event) 2022-05-15 00:00:00 2022-05-25 21:46:00 Not sure [facility] Tobacco Comment 2022-05-25 00:00:00 2022-05-25 00:00:00 Smokes 1 pack a day [facility] Tobacco use and exposure 2022-05-25 00:00:00 2022-05-25 00:00:00 Smokeless tobacco non-user [facility] Alcohol intake 2022-05-25 00:00:00 2022-05-25 00:00:00 Current drinker of alcohol (finding) [facility] Alcohol Comment 2018-03-01 00:00:00 2018-03-01 00:00:00 10 drinks per year [facility] Sex Ass[birth year] At 1945 00:00:00 1945 00:00:00 [facility] Smoking Status Start Date Stop Date Source Heavy Tobacco Smoker [facility] Smokes tobacco daily 2022-05-25 00:00:00 [facility] Occasional tobacco smoker 2018-05-31 00:00:00 [facility] Medications Ordered Medication Name Filled Medication Name Start Date Stop Date Current Medication? Ordering Clinician Indication Dosage Frequency Signature (SIG) Comments Components Source apixaban (ELIQUIS) tablet 5 mg 2021-07 02:00: 00 Yes 5mg 5 mg, Oral, BID, First dose on Wed05/26/22 at 2000, Until Discontinu ed, Routine
Indicatio ns: Non-Valvul ar Atrial Fibrillati on [facility] guaiFENesin 400 mg tablet 2021-07 00:00: 00 Yes [id number] 400mg Take 1 tablet by mouth every 4 (four) hours. [facility] Budesonide 90 mcg/actuati on aerosol powder 2021-07 00:00: 00 Yes [id number] 1{puff} Inhale 1 Puff in the morning and 1 Puff in the evening. [facility] albuterol sulfate 90 mcg/actuati on AePB 2021-07 00:00: 00 Yes [id number] 2{puff} Inhale 2 Puffs every 4 (four) hours as needed for Other (SOB). [facility] nicotine 21 mg/24 hr patch 2021-07 00:00: 00 09-25 05:59 :00 No [id number] 1{patch } Apply 1 Patch to area(s) every 24 (twenty-fo ur) hours for 120 days. [facility] apixaban 5 mg tablet 2021-07 00:00: 00 06-27 05:59 :00 No [id number] 5mg Take 1 tablet by mouth in the morning and 1 tablet in the evening. Do all this for 30 days. Indication s: atrial fibrillati on [facility] docusate 100 mg capsule 2021-07 00:00: 00 06-27 05:59 :00 No [id number] 100mg Take 1 capsule by mouth in the morning and 1 capsule in the evening. Do all this for 30 days. [facility] metoprolol succinate XL 25 mg 24 hr tablet 2021-07 00:00: 00 06-27 05:59 :00 No [id number] 25mg Take 1 tablet by mouth in the morning and 1 tablet in the evening. Do all this for 30 days. [facility] predniSONE 20 mg tablet 2021-07 00:00: 00 05-31 05:59 :00 No [id number] 40mg Take 2 tablets by mouth at bedtime for 3 days. [facility] ipratropium -albuteroL (DUONEB) 0.5 mg-3 mg(2.5 mg base)/3 mL nebulizer solution 3 mL 2021-07 17:45: 00 Yes 3mL 3 mL, Inhalation , QIDPRN, Starting on Wed05/26/22 at 1145, Until Discontinu ed, Routine, Wheezing [facility] enoxaparin (LOVENOX) injection 40 mg 2021-07 15:00: 00 05-26 22:25 :05 No 40mg 40 mg, Subcutaneo us, DAILY, First dose on Wed05/26/22 at 0900, Until Discontinu ed, Routine [facility] citrus select contrast media (CITRUS SELECT) oral liquid 700 mL 2021-07 08:15: 00 05-26 08:15 :00 No [id number] 700mL 700 mL, Oral, ONCE, 1 dose, On Wed05/26/22 at 0215, Routine [facility] iopamidol (ISOVUE 370-500 mL) injection 75 mL 2021-07 08:15: 00 05-26 08:15 :00 No [id number] 75mL 75 mL, Intravenou s, ONCE, 1 dose, On Wed05/26/22 at 0215, Routine [facility] nicotine (NICODERM) 21 mg/24 hr patch 1 Patch 2021-07 05:30: 00 Yes 1{patch } 1 Patch, Topical, Administer over 24 Hours, Q24H, First dose on Wed05/25/22 at 2330, Until Discontinu ed, Routine [facility] NaCl 0.9% (NS) IV infusion 1,000 mL 2021-07 05:30: 00 Yes 1000mL at 100 mL/hr, IV Infusion, CONTINUOUS , Starting on Wed05/25/22 at 2330, Until Discontinu ed, Routine [facility] predniSONE (DELTASONE) tablet 40 mg 2021-07 05:30: 00 05-30 02:59 :00 No 40mg 40 mg, Oral, QHS, 4 doses, First dose on Wed05/25/22 at 2330, Last dose on Wed05/28/22 at 2100, Routine [facility] ipratropium -albuteroL (DUONEB) 0.5 mg-3 mg(2.5 mg base)/3 mL nebulizer solution 3 mL 2021-07 05:30: 00 05-26 17:35 :42 No 3mL 3 mL, Inhalation , QID, First dose on Wed05/25/22 at 2330, Until Discontinu ed, Routine [facility] budesonide (PULMICORT RESPULE) nebulizer solution 0.5 mg 2021-07 05:30: 00 05-26 17:35 :19 No .5mg 0.5 mg, Inhalation , BID, First dose on Wed05/25/22 at 2330, Until Discontinu ed, Routine [facility] metoprolol succinate XL (TOPROL XL) tablet 25 mg 2021-07 04:30: 00 Yes 25mg 25 mg, Oral, BID, First dose on Wed05/25/22 at 2230, Until Discontinu ed, Routine [facility] docusate (COLACE) capsule 100 mg 2021-07 04:30: 00 Yes 100mg 100 mg, Oral, BID, First dose on Wed05/25/22 at 2230, Until Discontinu ed, Routine [facility] aspirin E.C. (ECOTRIN) tablet 325 mg 2021-07 04:30: 00 05-26 22:25 :05 No 325mg 325 mg, Oral, QAM WITH BREAKFAST, First dose on Wed05/25/22 at 2230, Until Discontinu ed, Routine [facility] ondansetron (ZOFRAN (PF)) injection 4 mg 2021-07 04:17: 41 Yes 4mg 4 mg, Slow IV Push, Q6HPRN, Starting on Wed05/25/22 at 2217, Until Discontinu ed, Routine, Nausea and Vomiting (N/V) [facility] aspirin 81 mg Cap 2021-07 21:49: 41 05-25 00:00 :00 No 81mg Take 81 mg by mouth. Patient takes differentl y; takes 1 cap weekly [facility] AMLODIPINE 5 mg tablet 2021-07 00:00: 00 Yes [id number] TAKE ONE (1) TABLET(S) BY MOUTH ONCE A DAY. [facility] TIZANIDINE 2 mg tablet 02-09 00:00: 00 05-25 00:00 :00 No [id number] 103 TAKE ONE (1) TABLET(S) BY MOUTH EVERY EIGHT HOURS NEEDED FOR MUSCLE SPASMS. [facility] DICLOFENAC SODIUM 1 % gel 13 00:00: 00 05-25 00:00 :00 No [id number] 103 APPLY FOUR GRAMS TO AFFECTED AREA(S) FOUR TIMES DAILY. [facility] DULoxetine 20 mg capsule 23 00:00: 00 05-25 00:00 :00 No [id number] 20mg Take 1 capsule by mouth 2 (two) times daily. [facility] aspirin 81 mg Cap 20 09:21: 38 Yes 81mg Take 81 mg by mouth. Patient takes differentl y; takes 1 cap weekly [facility] Diclofenac Sodium (VOLTAREN) 1 % gel 12-05 00:00: 00 Yes [id number] 103 Apply to area(s) 4 (four) times daily. Apply 4 g qid [facility] alendronate 70 mg tablet 20 00:00: 00 05-25 00:00 :00 No [id number] 70mg Take 1 tablet by mouth weekly. [facility] rosuvastati n 10 mg tablet -20 00:00: 05-25 00:00 :00 No [id number] 10mg Take 1 tablet by mouth at bedtime. [facility] DULoxetine 20 mg CDRS 12-05 00:00: 05-25 00:00 :00 No [id number] 20mg Take 20 mg by mouth 2 (two) times daily. [facility] nicotine 14 mg/24 hr patch 20 00:00: 05-25 00:00 :00 No [id number] 1{patch } Apply 1 Patch to area(s) every 24 (twenty-fo ur) hours. Apply 21mg patch daily x 6 weeks; then apply 14mf patch daily x 2 weeks; then apply 7mg patch daily x 2 weeks. Stop smoking on initiation of therapy [facility] nicotine 21 mg/24 hr patch 20 00:00: 05-25 00:00 :00 No [id number] 1{patch } Apply 1 Patch to area(s) daily. Apply 21mg patch daily x 6 weeks; then apply 14mf patch daily x 2 weeks; then apply 7mg patch daily x 2 weeks. Stop smoking on initiation of therapy [facility] nicotine 7 mg/24 hr patch 20 00:00: 05-25 00:00 :00 No [id number] 1{patch } Apply 1 Patch to area(s) every 24 (twenty-fo ur) hours. Apply 21mg patch daily x 6 weeks; then apply 14mg patch daily x 2 weeks; then apply 7mg patch daily x 2 weeks. Stop smoking on initiation of therapy [facility] amLODIPine 5 mg tablet 12-05 00:00: 00 04-21 00:00 :00 No [id number] 2.5mg Take 0.5 tablets by mouth daily. [facility] tiZANidine 2 mg tablet -20 00:00: 02-09 00:00 :00 No [id number] 103 1mg Take 0.5 tablets by mouth every 8 (eight) hours as needed (muscle spasms). [facility] ondansetron (ZOFRAN) 4 mg tablet 08-15 00:00: 00 05-25 00:00 :00 No [id number] 4mg Take 1 tablet by mouth every 8 (eight) hours as needed for Nausea and Vomiting (N/V). [facility] meloxicam 7.5 mg tablet 2020-07 00:00: 00 05-25 00:00 :00 No [id number] 7.5mg Take 1 tablet by mouth once daily as needed (back pain). [facility] Calcium-Cho lecalcifero l, D3, (CALCIUM 600 + D,3,) 600 mg calcium- 200 unit Cap 08-27 00:00: 00 05-25 00:00 :00 No 1{capsu le} Take 1 capsule by mouth daily. (OR YOU CAN USE CALCIUM CITRATE PLUS D) [facility] albuterol sulfate hfa 108 (90 base) mcg/act aerosol soln albuterol sulfate hfa 108 (90 base) mcg/act aerosol soln Yes [facility] carvedilol 25 mg tablet Take 1 tablet twice a day by oral route. carvedilol 25 mg tablet Take 1 tablet twice a day by oral route. No 1 BID carvedilol 25 mg tablet Take 1 tablet twice a day by oral route. [facility] Eliquis 2.5 mg tablet TAKE ONE (1) TABLET(S) BY MOUTH TWICE A DAY. Eliquis 2.5 mg tablet TAKE ONE (1) TABLET(S) BY MOUTH TWICE A DAY. No Eliquis 2.5 mg tablet TAKE ONE (1) TABLET(S) BY MOUTH TWICE A DAY. [facility] estradiol 0.01% (0.1 mg/gram) vaginal cream INSERT 0.5 GRAMS VAGINALLY 3 TIMES A WEEK AT BEDTIME. estradiol 0.01% (0.1 mg/gram) vaginal cream INSERT 0.5 GRAMS VAGINALLY 3 TIMES A WEEK AT BEDTIME. No .5g Q56H estradiol 0.01% (0.1 mg/gram) vaginal cream INSERT 0.5 GRAMS VAGINALLY 3 TIMES A WEEK AT BEDTIME. [facility] folic acid folic acid No folic acid [facility] Lumigan 0.01 % eye drops INSTILL ONE [...] AFFECTED EYE(S) TWICE A DAY. [facility] TYRVAYA 0.03 MG/ACT SOLUTION TYRVAYA 0.03 MG/ACT SOLUTION Yes [facility] LUMIGAN 0.01 % SOLUTION LUMIGAN 0.01 % SOLUTION Yes [facility] carvedilol 6.25 mg tablet carvedilol 6.25 mg tablet Yes [facility] ELIQUIS 2.5 MG TABLET ELIQUIS 2.5 MG TABLET Yes [facility] RESTASIS 0.05 % EMULSION RESTASIS 0.05 % EMULSION Yes [facility] Vital Signs Vital Name Observation Time Observation [...] Systolic blood pressure 2022-05-27 18:29:00 136 mm[Hg] [facility] Diastolic blood pressure 2022-05-27 18:29:00 68 mm[Hg] [facility] Heart rate 2022-05-27 18:29:00 60 /min [facility] Body temperature 2022-05-27 18:29:00 36.39 Polly [facility] Respiratory rate 2022-05-27 18:29:00 18 /min [facility] Oxygen saturation in Arterial blood by Pulse oximetry 2022-05-27 18:29:00 98 /min [facility] Body weight 2022-05-27 09:46:00 43.5 kg [facility] BMI 2022-05-27 09:46:00 16.46 kg/m2 [facility] Body height 2022-05-26 04:30:00 162.6 cm [facility] Procedures Procedure Date / Time Performed Performing Clinician Source US, transvaginal 2023-10-29 00:00:00 [facility] MAMMO, screening, digital, bilateral 2023-10-25 00:00:00 [facility] AUTHORIZATION FOR RELEASE OF PHI 2022-07-31 06:01:00 Doctor Unassigned, [place] [facility] BASIC METABOLIC PANEL (NA, K, CL, CO2, GLUCOSE, BUN, CREATININE, CA) 2022-05-27 09:13:00 Bobby Willis [facility] CBC WITH DIFF 2022-05-27 09:13:00 [facility]-B[facility] 2022-05-27 09:13:00 Kendrick Willis [facility] TROPONIN I 2022-05-27 05:26:00 Bobby Willis [facility] TROPONIN I 2022-05-26 23:49:00 Bobby Willis [facility] TRANSTHORACIC ECHO (TTE) COMPLETE 2022-05-26 18:02:00 Esme Santos [facility] PREALBUMIN, SERUM 2022-05-26 11:21:00 Esme Santos [facility] PHOSPHORUS 2022-05-26 11:21[facility]00 [facility] CREAT[facility] KINASE 2022-05-26 11:21:00 Esme Santos [facility] URIC ACID 2022-05-26 11:21:00 [facility] MAGNESIUM 2022-05-26 11:21:00 Esme Santos [facility] TROPONIN I 2022-05-26 11:21:00 Esme Santos [facility] THYROID STIMULATING HORMONE 2022-05-26 11:21:00 Esme Santos [facility] COMP. METABOLIC PANEL ([id number]) 2022-05-26 11:21:00 Tom juan m [facility] LIPID PANEL ([id number])(TOTAL CHOLESTEROL, TRIGLYCERIDES, HDL) 2022-05-26 11:21:00 Esme Santos [facility] SEDIMENTATION RATE 2022-05-26 11:21:00 Esme Santos [facility] CBC WITH DIFF 2022-05-26 11:21:00 Esme [facility] GLYCOSYLATED HEMOGLOBIN (A1C) 2022-05-26 11:21:00 [facility] N-TERMINAL PRO-BNP 2022-05-26 11:21:00 Tom juan m [facility] PROCALCITONIN 2022-05-26 11:21:00 Esme [facility] ABDOMEN PELVIS W CONTRAST 2022-05-26 07:45[facility] 2022-05-26 07:45:13 Sailaja Santos [facility] URINE DRUG (IMMUNOASSAY) - COMPREHENSIVE DRUG SCREEN 2022-05-26 06:25:00 Esme Santos [facility] URINALYSIS 2022-05-26 06:25:00 Esme Santos [facility] URINE CULTURE 2022-05-26 06:25:00 Esme Santos [facility] UREA NITROGEN, URINE RANDOM 2022-05-26 06:25:00 Esme Santos [facility] SODIUM, URINE RANDOM 2022-05-26 06:25:00 Sailaja Santos [facility] PROTEIN CREAT RATIO URINE RANDOM 2022-05-26 06:25:00 Esme Santos [facility] RESPIRATORY PANEL BY PCR 2022-05-26 04:53:00 Esme Santos [facility] MRSA / MSSA SCREEN BY PCRISADORA 2022-05-26 04:51:00 Esme Santos [facility] Hysteroscopy [facility] Encounters Start Date/Time End Date/Time Encounter Type Admission Type Attending Clinicians Care Facility Care Department Encounter ID Source 2024-03-21 13:00:00 2024-03-21 13:20:00 ED Follow Up ([facility]) Liz Millardmodesto [facility]ARS [id number] 2023-10-29 00:00:00 2023-10-29 00:00:00 Leydi Martin MD: [address], [address], [place] [address] , Ph. GC_GCBZW_Ka diyala_S [facility] - GC_GCBZW_Maritza [facility]* [id number] [facility] 2023-10-25 00:00:00 2023-10-25 00:00:00 PHUONG Cuevas: [address], [place] [address] , Ph. GC_GCBZW_Ka diyala_S [facility] - GC_GCBZW_La brodie [place]* [id number] [facility] 2023-10-13 00:00:00 2023-10-13 00:00:00 Outpatient GC_GCBZW_Ka diyala_S [facility] [id number] [facility] 2023-09-29 00:00:00 2023-09-29 00:00:00 Outpatient GC_GCBZW_Ka diyala_S PRIV PRIV [id number] [facility] 2023-09-08 15:00:00 2023-09-08 16:00:00 Annual D2Me Sera Iyanoye [id number] RU3 [facility] 2023-05-14 00:00:00 2023-05-14 00:00:00 Outpatient GC_GCBZW_Ka diyala_S PRIV PRIV [id number] [facility] 2022-09-11 14:30:00 2022-09-11 15:30:00 CAV Samantha Singletary [id number] CLACXCYRGJ E56 [facility] 2022-09-09 00:00:00 2022-09-09 00:00:00 Outpatient Tumelson_A [facility] [id number] [facility] 2022-09-09 00:00:00 2022-09-09 00:00:00 Outpatient Tumelson_A [facility] [id number] [facility] 2022-07-31 00:00:00 2022-07-31 00:00:00 Orders Only Doctor Unassigned, [place] [facility] [id number] [id number] [facility] [facility] 00:00:00 2022-05-28 00:00:00 Transition of Care Celso Lacy 1..840.114 350.1.13.10 4.2.7.2.686 [id number] [facility] 2022-05-25 21:19:00 2022-05-27 15:13:00 Outpatient TAMMIE CRUZ [facility] [id number] [facility] 2022-05-25 21:19:00 2022-05-27 15:13:00 Hospital Encounter Esme SantosTammie [facility] 1.2.840.114 350.1.13.10 4.2.7.2.686 [id number] [facility] 2022-05-22 16:30:00 2022-05-22 17:30:00 CAV Elualia Hernandez 2.16.840. [id number] 2.16.840.1. [id number] [facility] 2022-04-21 00:00:00 2022-04-21 00:00:00 Homar De La Gar[facility] 1.2.840.114 350.1.13.10 4.2.7.2.686 [id number] [facility] 2022-03-06 10:00:00 2022-03-06 10:00:00 Outpatient R HOMAR ORTIZ [facility] [id number] [facility] 2022-03-06 10:00:00 2022-03-06 10:00:00 Outpatient R HOMAR ORTIZ [facility] [id number] [facility] 2022-02-02 10:00:00 2022-02-02 10:00:00 Outpatient R LALITHA MONK [facility] [id number] [facility] 2022-02-01 00:00:00 2022-02-01 00:00:00 Homar De La Garza [facility] 1.2.840.114 350.1.13.10 4.2.7.2.686 [id number] [facility] 2022-01-30 08:01:00 2022-01-30 08:01:00 Outpatient DMG DM [id number] [facility] 2022-01-28 00:00:00 2022-01-28 00:00:00 Refill Homar Ortiz [facility] 1..840.114 350.1.13.10 4.2.7.2.686 [id number] [facility] 2022-01-14 09:00:00 2022-01-14 09:00:00 Outpatient DMG DMG [id number] [facility] 2022-01-12 09:00:00 2022-01-12 09:11:40 Outpatient R LALITHA MONK [facility] [id number] [facility] 2022-01-12 09:00:00 2022-01-12 09:11:40 [facility] 1..840.114 350.1.13.10 4.2.7.2.686 [id number] [facility] 2021-12-05 09:00:00 2021-12-05 10:10:37 Outpatient R HOMAR ORTIZ [facility] [id number] [facility] 2021-12-05 09:00:00 2021-12-05 10:10:37 Office Visit Homar Ortiz [facility] 1..840.114 350.1.13.10 4.2.7.2.686 [id number] [facility] 2021-12-05 09:00:00 2021-12-05 10:10:37 Outpatient R HOMAR ORTIZ [facility] [id number] [facility] 2021-12-05 00:00:00 2021-12-05 00:00:00 Telephone Homar Ortiz [facility] 1..840.114 350.1.13.10 4.2.7.2.686 [id number] [facility] 2021-11-28 00:00:00 2021-11-28 00:00:00 Refill Homar Ortiz [facility] 1.2.840.114 350.1.13.10 4.2.7.2.686 [id number] [facility] 2021-11-18 14:00:00 2021-11-18 14:00:00 Outpatient R HOMAR ORTIZ [facility] [id number] [facility] 2021-11-05 13:00:00 2021-11-05 13:00:00 Outpatient R HOMAR ORTIZ [facility] [id number] [facility] 2021-10-29 00:00:00 2021-10-29 00:00:00 Telephone Chris Balbuena [facility] 1.2.840.114 350.1.13.10 4.2.7.2.686 [id number] [facility] 2021-10-28 00:00:00 2021-10-28 00:00:00 Refill Chris Balbuena [facility] 1.2.840.114 350.1.13.10 4.2.7.2.686 [id number] [facility] 2021-10-24 00:00:00 2021-10-24 00:00:00 Orders Only Doctor Unassigned, [place] [facility] 1.2840.114 350.1.13.10 4.2.7.2.686 [id number] [facility] 2021-10-23 10:00:00 2021-10-23 10:00:00 Outpatient R HELDER DEL ROSARIO [facility] [id number] [facility] 2021-10-23 10:00:00 2021-10-23 10:00:00 Outpatient SYEDA FERRERBHAVIK [facility] [id number] [facility] 2021-10-23 10:00:00 2021-10-23 10:00:00 Outpatient R CARIN HELDER [facility] [id number] [facility] 2021-10-17 11:00:00 2021-10-17 11:00:00 Outpatient FERNIE CARRILLO [facility] [id number] [facility] 2021-10-16 09:00:00 2021-10-16 09:00:00 Outpatient HELDER FERRER [facility] [id number] [facility] 2021-10-13 00:00:00 2021-10-13 00:00:00 Orders Only Doctor Unassigned, [place] [facility] 1..840.114 350.1.13.10 4.2.7.2.686 [id number] [facility] 2021-08-15 10:03:00 2021-08-15 14:28:00 Emergency Rosa Gregg [facility] 1..840.114 350.1.13.10 4.2.7.2.686 [id number] [facility] 2021-08-15 09:00:00 2021-08-15 09:27:34 Outpatient DENISHA EASLEY [facility] ERT [id number] [facility] 2021-08-15 09:00:00 2021-08-15 09:20:00 Urgent Care Denisha Aponte Cathy [facility] 1..840.114 350.1.13.10 4.2.7.2.686 [id number] [facility] 2021-08-15 09:00:00 2021-08-15 09:00:00 Outpatient DENISHA EASLEY [facility] [id number] [facility] 2021-08-15 00:00:00 2021-08-15 00:00:00 Orders Only Doctor Unassigned, [place] [facility] 1.840.114 350.1.13.10 4.2.7.2.686 [id number] [facility] 2021-05-30 12:05:12 2021-05-30 12:35:12 Office Visit Lindsey Boswell Slime [facility] 1.840.114 350.1.13.10 4.2.7.2.686 [id number] [facility] 2021-05-30 12:30:00 2021-05-30 12:30:00 Outpatient R LINDSEY BOSWELL [facility] [id number] [facility] 2021-05-30 12:30:00 2021-05-30 12:30:00 Outpatient R LINDSEY BOSWELL [facility] [id number] [facility] 2021-05-05 00:00:00 2021-05-05 00:00:00 Refill Chris Balbuena [facility] Medical Office Building 1..840.114 350.1.13.10 4.2.7.2.686 [id number] [facility] 2021-04-28 10:00:00 2021-04-28 10:00:00 Outpatient R HELDER DEL ROSARIO [facility] [id number] [facility] 2021-04-28 10:00:00 2021-04-28 10:00:00 Outpatient R HELDER DEL ROSARIO [facility] [id number] [facility] 2021-04-25 00:00:00 2021-04-25 00:00:00 Helder Fields [facility] nal Building 1..840.114 350.1.13.10 4.2.7.2.686 [id number] [facility] 2021-04-10 10:15:00 2021-04-10 10:15:00 Outpatient HELDER DEL ROSARIO [facility] [id number] [facility] 2021-04-04 00:00:00 2021-04-04 00:00:00 Telephone Helder [facility] 1.2.840.114 350.1.13.10 4.2.7.2.686 [id number] [facility] 2021-03-31 13:00:00 2021-03-31 23:59:00 Hospital Encounter Helder Del Rosario [facility] 1.2.840.114 350.1.13.10 4.2.7.2.686 [id number] [facility] 2021-03-31 13:54:17 2021-03-31 14:09:17 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, Adc Lab Helder Del RosarioTyroneMatt [facility] 1.2.840.114 350.1.13.10 4.2.7.2.686 [id number] [facility] 2021-03-31 11:30:00 2021-03-31 12:13:07 Outpatient R HELDER DEL ROSARIO [facility] [id number] [facility] 2021-03-31 11:18:34 2021-03-31 12:13:07 Office Visit Helder Del Rosario [facility] 1.2.840.114 350.1.13.10 4.2.7.2.686 [id number] [facility] 2021-03-31 11:30:00 2021-03-31 11:30:00 Outpatient R HELDER DEL ROSARIO [facility] [id number] [facility] 2021-01-23 00:00:00 2021-01-23 00:00:00 Outpatient R KARLENE DELLOLIVIA [facility] [id number] [facility] 2021-01-10 00:00:00 2021-01-10 00:00:00 Outpatient R KARLENE DELLOLIVIA [facility] [id number] [facility] 2020-12-20 10:00:00 2020-12-20 10:00:00 Outpatient R ADRIÁN TERRY [facility] [id number] [facility] 2020-10-24 09:30:00 2020-10-24 09:30:00 Outpatient R HELDER DEL ROSARIO [facility] [id number] [facility] 2020-10-23 00:00:00 2020-10-23 00:00:00 Outpatient R [facility]EL [facility] [id number] [facility] 2020-10-16 13:00:00 2020-10-16 13:00:00 Outpatient R FERNIE MCCARTNEY [facility] [id number] [facility] 2020-09-17 00:00:00 2020-09-17 00:00:00 Outpatient R CHRIS BALBUENA [facility] [id number] [facility] 2020-08-27 13:00:00 2020-08-27 13:00:00 Outpatient R CHRIS BALBUENA [facility] [id number] [facility] 2020-01-11 10:12:34 2020-01-11 23:59:00 Outpatient R CHRIS BALBUENA [facility] [id number] [facility] 2019-10-23 13:30:00 2019-10-23 13:30:00 Outpatient R HELDER DEL ROSARIO [facility] [id number] [facility] 2019-10-02 09:30:00 2019-10-02 09:30:00 Outpatient R CHRIS BALBUENA [facility] [id number] [facility] 2019-09-28 11:00:00 2019-09-28 11:00:00 Outpatient HELDER FERRER [facility] [id number] [facility] Results Test Description Test Time Test Comments Results Result Co mments Source BRADLY Milton + [id number] 00:00:00* Test Item Value Reference Range Interpretation [...] type 18) not detected not detected Arpan JacksonNORIS [id number] 00:37:25* Test Item Value Reference Range Interpretation Comments TROPONIN I (test code = 9460727843) 0.016 ng/mL See_Comment [Automated message] The system [...] of biotin. Lab Interpretation (test code = 99843-8) [facility]2022-05-26 22:46:58* Test Item Value Reference Range Interpretation Comme nts Height (test code = 3289942205) in Weight (test code = 5659255361) lbs Systolic BP (test code = 7322842768) mmHg Diastolic BP (test code = 7048735759) mmHg Heart Rate (test code = 6098256569) bpm BSA (test code = 5594820866) 1.39 m2 Ao root diam (test code = 5503372208) 3.00 cm Aortic root (test code = 1966680557) 3.0 cm Ao root annulus (test code = 2578137889) 3.0 cm LVOT diameter (test code = 6649518116) 1.82 cm LVOT area (test code = 8399342943) 2.60 cm2 LVIDD (test code = 9383663522) 3.10 cm Left Ventricular End Diastolic Volume by Teichholz Method (test code = 2646470) 38.4 mL IVS (test code = 4933876370) 1.23 cm Interventricular Septum Diastolic Thickness by 2D (test code = 7297293) 1.23 cm LVPWD (test code = 0855172138) 1.23 cm PW (test code = 6928058865) 1.23 cm 0.6-1.1 EF(Teich) (test code = 9682011381) 65.50 % LVIDS (test code = 9148552241) 2.03 cm Left Ventricular End Systolic Volume by Teichholz Method (test code = 3077442) 13.2 mL FS (test code = 1598375051) 35 % EF - 2D (test code = 23878593) 65.50 % LA size (test code = 8751083179) 2.9 cm TR Peak Jamal (test code = 2608795570) 241.3 cm/s Triscuspid Valve Regurgitation Peak Gradient (test code = 8265005272) mmHg LAV(MOD-sp4) (test code = 0367986371) 39.60 mL E wave decelartion time (test code = 1001153860) 0.20 s MV stenosis pressure 1/2 time (test code = 5060468059) 58.4 ms MV Peak E Jamal (test code = 7154590920) 94.0 cm/s MV Peak A Jamal (test code = 3745329692) 75.9 cm/s E/A ratio (test code = 5845164573) ratio MR max PG (test code = 5748716960) 104.20 mm[Hg] MR max jamal (test code = 2241451514) 510.00 cm/s Mr max jamal (test code = 7638361119) 510.0 m/s MV Prop V (test code = 0712416945) 35.50 cm/s MV E/e' septal (test code = 2196753745) 13.9 cm/s Tapse (test code = 7226023609) 1.49 cm LVOT stroke volume (test code = 2053781757) 78.40 cm3 LVOT peak jamal (test code = 9545214056) 138.5 cm/s LVOT mn grad (test code = 0965922353) mmHg AV LVOT peak gradient (test code = 0983260431) mmHg LVOT peak VTI (test code = 9743365802) 30.1 cm LV V1 mean (test code = 3701675550) 92.20 cm/s Aortic valve mean velocity (test code = 5011329344) 103.5 cm/s Ao peak jamal (test code = 4700282993) 136.3 cm/s Ao VTI (test code = 6919957367) 32.7 cm AV area by cont VTI (test code = 8602341519) 2.4 cm2 AV area peak jamal (test code = 8794417360) 2.6 cm2 Ao max PG (test code = 7858237809) 7.40 mm[Hg] AV peak gradient (test code = 7236412472) mmHg AV valve area (test code = 0037835848) 2.40 cm2 AV mean gradient (test code = 9256328024) mmHg Radiology Study observation (narrative) (test code = 62260-2) STIVEN (test code = STIVEN) ?Left?Ventricle: Left [...] 2D, color flow Doppler and spectral Doppler. [facility] Notes Date/Time Note Provider Source 2024-03-21 13:00:00 [facility] Check In Did member answer phone?: Yes Is the member available to discuss their ER stay in a quick 10 min phone call ?: YesWhat prompted you to go to the ED: Pain (L) SideDo you feel you were able to get the care you needed?: YesDo you have any questions regarding your discharge instructions?: NoDischarged with new medications?: Yes 4.a Have you been able to slat pickler your medications?: Yes 4.b Do you have any questions about your medications?: NoIs there anything you need help coordinating?: NoDo you have a follow-up appointment with your PCP scheduled (or have you seen the PCP since your most recent discharge)?: Yes Post-ER PCP Visit Date: 2024-02-16 Liz Millard [facility]
[2024-03-28] MEDS ORDERED: ONDANSETRON 4 MG/2 ML VIAL ONE (12:30)
[2024-03-28] MEDS ORDERED: HYDROMORPHONE HCL 1 MG/ML INJ ONE (12:30)
[2024-03-28 12:36] LABS: Absolute Basophils 0.1 K/uL (0-0.5); Absolute Eosinophils 0.3 K/uL (0-0.5); Absolute Lymphocytes (CBC) 1.6 K/uL (0.7-4.9); Absolute Monocytes 0.7 K/uL (0.1-1.3); Absolute Neutrophil 4.9 K/uL (1.8-8.0); Basophils % 1.3 % (0-1.3); Eosinophils % 3.3 % (0-4.4); Hematocrit 38.5 % (36.0-45.0); Hemoglobin 12.9 g/dL (12.0-15.0); Lymphocytes % 21.7 % (15.3-44.8); MCH 31.7 pg (27.0-35.0); MCHC 33.4 g/dL (32.0-36.0); MCV 94.9 fL (80-100); MPV 8.1 fL (7.6-11.3); Monocytes % 8.7 % (3.3-12.3); Platelets 241 thou/uL (152-406); RBC Red Blood Cell Count 4.06 M/uL (3.86-4.86); Red Cell Distribution Width 13.4 % (12.1-15.2)
[2024-03-28 12:40] LABS: PT Prothrombin Time 11.9 SECONDS (9.4-12.5); Protime INR 1.06
[2024-03-28 12:56] LABS: ALT/SGPT 23 U/L (13-56); AST/SGOT 19 U/L (15-37); Albumin 3.9 g/dL (3.4-5.0); Albumin/Globulin Ratio 1.1 (1.1-1.8); Alkaline Phosphatase 83 U/L (45-117); Anion Gap 6.1 mEq/L (5.0-15.0); BUN Blood Urea Nitrogen 19 mg/dL (7-18); Bicarbonate 27 mEq/L (21-32); Bilirubin Total 0.6 mg/dL (0.2-1.0); Globulin 3.4 g/dL (2.3-3.5); Glomerular Filtration Rate 91 ml/min (=/>90); Glucose Level 97 mg/dL (74-106); Magnesium 2.1 mg/dL (1.6-2.4); NT PRO-BNP 168 pg/mL (<450); Potassium 4.1 mEq/L (3.5-5.1); Protein, Total 7.3 g/dL (6.4-8.2); Sodium Level 137 mEq/L (136-145)
[2024-03-28 12:58] LABS: Bilirubin Direct < 0.2 mg/dL (0-0.2); Bilirubin Indirect, Calculated 0.4 mg/dL (0.2-0.8)
--- NOTE | 2024-03-28 13:02 | RAD REPORT ---
EXAM DESCRIPTION: CT - Chest For Pe Angio - 03/28/2024 12:46 pm CLINICAL HISTORY: Chest pain. CHEST PAIN COMPARISON: No comparisons TECHNIQUE: CT angiogram of the pulmonary arteries was performed with MIP. All CT scans are performed using dose optimization technique as appropriate and may include automated exposure control or mA/KV adjustment according to patient size. FINDINGS: No evidence of pulmonary thromboembolism. No acute aortic finding demonstrated. Mild diffuse COPD. Vague linear opacities in both lung bases probably minimal atelectasis. No significant pericardial or pleural fluid. No concerning bony finding. IMPRESSION: No evidence of pulmonary thromboembolism. Mild COPD.
--- NOTE | 2024-03-28 14:03 | EDPHYS ---
Physician Documentation [facility] Name: Angelique Avelar Age: 79 yrs Sex: Female : 1945 Arrival Date: 03/28/2024 Time: 11:40 Bed 15 Private MD: ED Physician Sue Hung HPI: 03/28 12:46 This 79 yrs old Female presents to ER via Wheelchair with complaints of Chest Pain. sp3 12:46 78-year-old female with history of COPD and kidney stones presents with chest pain and sp3 left upper quadrant abdominal pain for the last 4 weeks. Patient states that she was seen by her PCP and they ordered a CT scan which demonstrated a stone in the kidney but none in the ureter and no other abnormality. 2 weeks ago patient was seen by me here at this facility where I ordered a CT scan of abdomen pelvis which demonstrated no significant abnormality. Patient was sent home on Bentyl p.o. Patient states that the pain has continued and now has gotten worse. No vomiting, nausea, fever, diarrhea, back pain, shortness of breath or any other significant findings on review of systems. She also denies melena, rectal bleeding, or any prior GI bleed. She also denies potential bad food, travel history, known sick contacts, prior splenic injury, or any other related pathology.. Historical: - Allergies: 11:52 PENICILLINS; iw - PMHx: 11:52 Kidney stones; COPD; iw - Immunization history:: Adult Immunizations not up to date. - Infectious Disease History:: Denies. - Social history:: Smoking status: Patient/guardian denies using tobacco, Stopped _ months ago 2. ROS: 12:48 Constitutional: Negative for fever, chills, and weight loss, Eyes: Negative for injury, sp3 pain, redness, and discharge, ENT: Negative for injury, pain, and discharge, Neck: Negative for injury, pain, and swelling, Respiratory: Negative for shortness of breath, cough, wheezing, and pleuritic chest pain, Back: Negative for injury and pain, MS/Extremity: Negative for injury and deformity, Skin: Negative for injury, rash, and discoloration, Neuro: Negative for headache, weakness, numbness, tingling, and seizure, Psych: Negative for depression, anxiety, suicide ideation, homicidal ideation, and hallucinations, Allergy/Immunology: Negative for hives, rash, and allergies, Endocrine: Negative for neck swelling, polydipsia, polyuria, polyphagia, and marked weight changes, Hematologic/Lymphatic: Negative for swollen nodes, abnormal bleeding, and unusual bruising, 12:48 All other systems are negative, Exam: 12:48 Constitutional: This is a well developed, well nourished patient who is awake, alert, sp3 and in no acute distress. Head/Face: Normocephalic, atraumatic. Eyes: Pupils equal round and reactive to light, extra-ocular motions intact. Lids and lashes normal. Conjunctiva and sclera are non-icteric and not injected. Cornea within normal limits. Periorbital areas with no swelling, redness, or edema. Neck: Trachea midline, no thyromegaly or masses palpated, and no cervical lymphadenopathy. Supple, full range of motion without nuchal rigidity, or vertebral point tenderness. No Meningismus. Cardiovascular: Regular rate and rhythm with a normal S1 and S2. No gallops, murmurs, or rubs. Normal PMI, no JVD. No pulse deficits. Respiratory: Lungs have equal breath sounds bilaterally, clear to auscultation and percussion. No rales, rhonchi or wheezes noted. No increased work of breathing, no retractions or nasal flaring. Abdomen/GI: Soft, non-tender, with normal bowel sounds. No distension or tympany. No guarding or rebound. No evidence of tenderness throughout. Skin: Warm, dry with normal turgor. Normal color with no rashes, no lesions, and no evidence of cellulitis. MS/ Extremity: Pulses equal, no cyanosis. Neurovascular intact. Full, normal range of motion. Neuro: Awake and alert, GCS 15, oriented to person, place, time, and situation. Cranial nerves II-XII grossly intact. Motor strength 5/5 in all extremities. Sensory grossly intact. Cerebellar exam normal. Normal gait. Psych: Awake, alert, with orientation to person, place and time. Behavior, mood, and affect are within normal limits. 12:48 Chest/axilla: Pain to palpation along the lower rib cage.. 15:32 ECG was reviewed by the Attending Physician. EKG demonstrates normal sinus rhythm at 60 sp3 bpm with normal intervals, normal QRS, normal axis, nonspecific diffuse ST/T changes without evidence of acute ischemia. Vital Signs: 11:50 BP 157 / 75; Pulse 65; Resp 16; Temp 97.5; Pulse Ox 94% on R/A; Weight 50.35 kg; Height iw 5 ft. 4 in. ; Pain 10/10; 14:30 BP 102 / 53; Pulse 64; Resp 16; Pulse Ox 100% on 2 lpm NC; db 15:30 BP 165 / 73; Pulse 53; Resp 22; Temp 97.8; Pulse Ox 99% ; db 16:30 BP 142 / 68; Pulse 55; Resp 18; Pulse Ox 99% ; db 11:50 Body Mass Index 19.05 (50.35 kg, 162.56 cm) iw 11:50 Pain Scale: Adult iw MDM: 11:59 Patient medically screened. sp3 12:48 Data reviewed: vital signs, nurses notes, old medical records, lab test result(s), EKG, sp3 radiologic studies. ED course: 79-year-old female with recurrent chest pain on the left lower side and left upper quadrant abdominal pain. Today I will order a CT scan of the chest with PE protocol as well as repeat labs and administer pain medicine. Given her return visit and continued symptoms, we will admit her to the hospital with cardiology consultation as well as any other workup that is needed. Differential diagnosis is broad and includes musculoskeletal pain, nerve related pain, PE, ACS, other GI pathology, referred pain from the abdomen, among others.. 13:42 ED course: Patient feeling better regarding pain. Given recurrent visit, I will admit sp3 for cardiology consultation and assessment.. 03/28 12:07 Order name: Basic Metabolic Panel; Complete Time: 13:33 sp3 03/28 12:07 Order name: CBC with Diff; Complete Time: 13:33 sp3 03/28 12:07 Order name: LFT's; Complete Time: 13:33 sp3 03/28 12:07 Order name: Magnesium; Complete Time: 13:33 sp3 03/28 12:07 Order name: NT PRO-BNP; Complete Time: 13:33 sp3 03/28 12:07 Order name: PT-INR; Complete Time: 13:33 sp3 03/28 12:07 Order name: Troponin HS; Complete Time: 13:33 sp3 03/28 14:30 Order name: Urine Microscopic Reflex EDMS 03/28 14:30 Order name: Thyroid Stimulating Hormone EDTN 03/28 14:30 Order name: CBC with Automated Diff EDMS 03/28 14:30 Order name: CBC with Automated Diff EDTN 03/28 14:30 Order name: Lipid Profile EDTN 03/28 14:30 Order name: Lipid Profile [facility] 03/28 14:30 Order name: Troponin High Sensitivity [facility] 03/28 14:30 Order name: Troponin High Sensitivity [facility] 03/28 14:30 Order name: Troponin High Sensitivity [facility] 03/28 14:30 Order name: Troponin High Sensitivity [facility] 03/28 14:30 Order name: Troponin High Sensitivity [facility] 03/28 12:07 Order name: CT Chest For PE Angio; Complete Time: 13:33 sp3 03/28 14:30 Order name: Abdomen Exam Complete [facility] 03/28 16:09 Order name: US [facility] 03/28 14:30 Order name: CONS Physician Consult [facility] 03/28 12:07 Order name: Cardiac monitoring; Complete Time: 13:35 sp3 03/28 12:07 Order name: EKG - Nurse/Tech; Complete Time: 13:35 sp3 03/28 12:07 Order name: IV Saline Lock; Complete Time: 12:38 sp3 03/28 12:07 Order name: Labs collected and sent; Complete Time: 12:38 sp3 03/28 12:07 Order name: O2 Per Protocol; Complete Time: 12:38 sp3 03/28 12:07 Order name: O2 Sat Monitoring; Complete Time: 12:38 sp3 Administered Medications: 12:32 Drug: Ondansetron IVP 4 mg IVP once; over 2 minutes Route: IVP; Site: right wrist; db 12:33 Drug: HYDROmorphone IVP 1 mg IVP once Route: IVP; Site: right wrist; db Disposition Summary: 03/28/24 14:02 Hospitalization Ordered Notes: Hospitalization Status: Observation sp3 Provider: Kiya Lopez sp3 Location: Telemetry/MedSurg (observation) sp3 Condition: Stable sp3 Problem: an acute exacerbation sp3 Symptoms: have worsened sp3 Bed/Room Type: Standard sp3 Room Assignment: 416(03/28/24 15:50) bd Diagnosis - Chest pain, chest wall pain sp3 Forms: - Medication Reconciliation Form sp3 - SBAR form sp3 - Leadership Thank You Letter sp3 Signatures: Dispatcher [employer] EDMS aSmia valenzuela bd Brinda Moreno RN RN iw Sue Hung MD MD sp3 Neetu Cabral RN RN db Corrections: (The following items were deleted from the chart) 12:07 12:07 BASIC METABOLIC PANEL+C.LAB.BRZ ordered. EDMS EDMS 12:07 12:07 CBC+H.LAB.BRZ ordered. EDMS EDMS 12:07 12:07 HEPATIC FUNCTION+C.LAB.BRZ ordered. EDMS EDMS 12:07 12:07 MAGNESIUM+C.LAB.BRZ ordered. EDMS EDMS 12:07 12:07 PROBNP+C.LAB.BRZ ordered. EDMS EDMS 12:07 12:07 PROTIME (+INR)+COAG.LAB.BRZ ordered. EDMS EDMS 12:07 12:07 Troponin High Sensitivity+C.LAB.BRZ ordered. EDMS EDMS 12:08 12:08 Chest For PE Angio+CT.RAD.BRZ ordered. EDMS EDMS 14:45 14:02 sp3 bd 15:50 14:45 426 bd bd
--- NOTE | 2024-03-28 14:03 | ER ---
Nurse's Notes [facility] Name: Angelique Avelar Age: 79 yrs Sex: Female : 1945 Arrival Date: 03/28/2024 Time: 11:40 Bed 15 Private MD: Diagnosis: Chest pain, chest wall pain Presentation: 03/28 11:50 Chief complaint: Patient states: hurting on left side off and on for months , was seen iw here and was told to follow up with GI, has referral for GI but has not been yet , this morning the pain has been in my lower abd and around to my back. Coronavirus screen: At this time, the client does not indicate any symptoms associated with coronavirus-19. Ebola Screen: No symptoms or risks identified at this time. Initial Sepsis Screen: Does the patient meet any 2 criteria? No. Patient's initial sepsis screen is negative. Does the patient have a suspected source of infection? No. Patient's initial sepsis screen is negative. Risk Assessment: Do you want to hurt yourself or someone else? Patient reports no desire to harm self or others. Onset of symptoms was March 28, 2024. 11:50 Method Of Arrival: Wheelchair iw 11:50 Acuity: NAN 3 iw Historical: - Allergies: 11:52 PENICILLINS; iw - PMHx: 11:52 Kidney stones; COPD; iw - Immunization history:: Adult Immunizations not up to date. - Infectious Disease History:: Denies. - Social history:: Smoking status: Patient/guardian denies using tobacco, Stopped _ months ago 2. Screenin:42 [facility] ED Fall Risk Assessment (Adult) History of falling in the last 3 months, db including since admission Yes- single mechanical fall (1 pt) Confusion or Disorientation No (0 pts) Intoxicated or Sedated No (0 pts) Impaired Gait No (0 pts) Mobility Assist Device Used No (0 pt) Altered Elimination No (0 pt) Score/Fall Risk Level 0 - 2 = Low Risk Oriented to surroundings, Maintained a safe environment. Abuse screen: Denies threats or abuse. Denies injuries from another. Nutritional screening: No deficits noted. Tuberculosis screening: No symptoms or risk factors identified. Assessment: 12:38 Reassessment: Patient appears in no apparent distress at this time. Patient and/or db family updated on plan of care and expected duration. Pain level reassessed. Patient is alert, oriented x 3, equal unlabored respirations, skin warm/dry/pink. General: Appears in no apparent distress. uncomfortable, Behavior is anxious. Pain: Complains of pain in back and abdomen. 14:00 Reassessment: Patient appears in no apparent distress at this time. Patient and/or db family updated on plan of care and expected duration. Pain level reassessed. Patient is alert, oriented x 3, equal unlabored respirations, skin warm/dry/pink. 15:00 Reassessment: Patient appears in no apparent distress at this time. Patient and/or db family updated on plan of care and expected duration. Pain level reassessed. Patient is alert, oriented x 3, equal unlabored respirations, skin warm/dry/pink. 16:00 Reassessment: Patient appears in no apparent distress at this time. Patient and/or db family updated on plan of care and expected duration. Pain level reassessed. Patient is alert, oriented x 3, equal unlabored respirations, skin warm/dry/pink. 17:10 Reassessment: Patient appears in no apparent distress at this time. Patient and/or db family updated on plan of care and expected duration. Pain level reassessed. Patient is alert, oriented x 3, equal unlabored respirations, skin warm/dry/pink. Patient states feeling better. Patient states symptoms have improved. 17:11 Neuro: Level of Consciousness is awake, alert, obeys commands, Oriented to person, db place, time, situation. Vital Signs: 11:50 BP 157 / 75; Pulse 65; Resp 16; Temp 97.5; Pulse Ox 94% on R/A; Weight 50.35 kg; Height iw 5 ft. 4 in. ; Pain 10/10; 14:30 BP 102 / 53; Pulse 64; Resp 16; Pulse Ox 100% on 2 lpm NC; db 15:30 BP 165 / 73; Pulse 53; Resp 22; Temp 97.8; Pulse Ox 99% ; db 16:30 BP 142 / 68; Pulse 55; Resp 18; Pulse Ox 99% ; db 11:50 Body Mass Index 19.05 (50.35 kg, 162.56 cm) iw 11:50 Pain Scale: Adult iw Vitals: 16:30 Cardiac Rhythm Assessment Regular. db ED Course: 11:41 Patient arrived in ED. mg5 11:45 Sue Hung MD is Attending Physician. sp3 11:52 Triage completed. iw 12:08 Neetu Cabral, RN is Primary Nurse. db 12:27 Initial lab(s) drawn, by me, sent to lab. Inserted saline lock: 22 gauge in right db wrist, using aseptic technique. Blood collected. Flushed with 10 mL NS. 12:48 CT Chest For PE Angio In Process Unspecified. EDMS 14:01 Kiya Lopez MD is Hospitalizing Provider. sp3 17:09 Patient has correct armband on for positive identification. Placed in gown. Bed in low db position. Call light in reach. Side rails up X2. Provided Education on: DISCHARGE. Client placed on continuous cardiac and pulse oximetry monitoring. NIBP monitoring applied. monitor technician on. Pulse ox on. NIBP on. Warm blanket given. Pillow given. 17:11 No provider procedures requiring assistance completed. Patient admitted, IV remains in db place. Administered Medications: 12:32 Drug: Ondansetron IVP 4 mg IVP once; over 2 minutes Route: IVP; Site: right wrist; db 12:33 Drug: HYDROmorphone IVP 1 mg IVP once Route: IVP; Site: right wrist; db Medication: 15:43 VIS not applicable for this client. db Outcome: 14:02 Decision to Hospitalize by Provider. sp3 17:09 Admitted to Med/surg accompanied by nurse, via stretcher, with chart, Report called to db FAXED TO UNIT AND CONFIRMED 17:09 Condition: stable 17:09 Instructed on the need for admit, 17:11 Patient left the ED. iw Signatures: Dispatcher [employer] EDMN Brinda Moreno, RN RN iw Sue Hung MD MD sp3 Neetu Cabral, FLOYD RN db Aliyah Brown mg5 Corrections: (The following items were deleted from the chart) 15:42 15:42 [facility] ED Fall Risk Assessment (Adult) History of falling in the last 3 months, db including since admission No falls in past 3 months (0 pts) Confusion or Disorientation No (0 pts) Intoxicated or Sedated No (0 pts) Impaired Gait No (0 pts) Mobility Assist Device Used No (0 pt) Altered Elimination No (0 pt) Score/Fall Risk Level 0 - 2 = Low Risk Oriented to surroundings, Maintained a safe environment, db
[2024-03-28] MEDS ORDERED: SODIUM CHLORIDE 0.9% 10ML INJ IV PRN (14:28)
--- NOTE | 2024-03-28 14:29 | P.HP ---
Certification for Inpatient Patient admitted to: Observation With expected LOS: <2 Midnights Patient will require the following post-hospital care: Rehabilitation Practitioner: I am a practitioner with admitting privileges, knowledge of patient current condition, hospital course, and medical plan of care. Services: Services provided to patient in accordance with Admission requirements found in Title 42 Section 412.3 of the Code of Federal Regulations <Ruth Ann Delaney - Last Filed: 03/28/24 17:36> Patient History Date of Service: 03/28/24 Reason for admission: Angina, back pain History of Present Illness: Ms. Angelique Avelar is a 79-year-old female with a past medical history of COPD, hypertension, a. fib, hyperlipidemia, hypothyroidism, and kidney stones. She presented to the emergency department 2 weeks ago with a complaint of left upper abdomen discomfort. A CT scan was done at that time and was negative for any acute findings. She returns today with angina with continued left upper abdomen discomfort around to her back. She complains of increased discomfort with deep inspiration. A CT PE study was performed in the emergency department and found to be negative for any acute findings. Renal ultrasound was performed with the impression of an unremarkable renal sonogram. Ms. Chicas'pranay stopped smoking 2 months ago. She was admitted for angina for consult to cardiology. Initial laboratory findings are unremarkable. - Past Medical/Surgical History Has patient received pneumonia vaccine in the past: No -: Hypertension -: A fib -: Hypothyroidism -: COPD -: Cataract -: Hyperlipidemia -: Cataract/glaucoma surgery 4 weeks ago and 1 week ago Psychosocial/ Personal History: Lives with her son and granddaughter. No assistive devices - Social History Smoking Status: Former smoker Alcohol use: No CD- Drugs: No Caffeine use: Yes Place of Residence: Home <Ruth Ann Delaney - Last Filed: 03/28/24 17:36> Date of Service: 03/29/24 <Kiya Lopez - Last Filed: 03/29/24 08:12> Allergies Penicillins Allergy (Mild, Verified 03/28/24 17:41) Rash Home Medications: Apixaban [Eliquis *] 2.5 mg PO BID 03/28/24 Cholecalciferol (Vitamin D3) [Vitamin D3] 1,000 units PO DAILY 03/28/24 Folic Acid 1 gm PO DAILY 03/28/24 Ketorolac Tromethamine 1 drop LEFT EYE TID 03/28/24 Levothyroxine Sodium [Synthroid] 25 mcg PO [id number] 03/28/24 Meloxicam 15 mg PO DAILY 03/28/24 Multivitamin 1 tab PO DAILY 03/28/24 Prednisol Acet 1% Opth [Pred Forte 1%*] 1 drop LEFT EYE QID 03/28/24 carvediloL [Coreg*] 6.25 mg PO BID 03/28/24 Review of Systems 10-point ROS is otherwise unremarkable General: Weakness Respiratory: Pleuritic Pain Cardiovascular: Chest Pain Gastrointestinal: Nausea, Abdominal Pain Musculoskeletal: Back Pain <DelaneyRuth Ann Azeem - Last Filed: 03/28/24 17:36> Physical Examination - Physical Exam General: Alert, Oriented x3, Mild distress HEENT: Atraumatic, Normocephalic Neck: Supple Respiratory: Normal air movement, Expiratory wheezes, Other (Tender with deep inspiration) Cardiovascular: No edema, Regular rate/rhythm Capillary refill: <2 Seconds Gastrointestinal: Soft and benign, Tenderness (Mild left upper quadrant across abdomen and around to mid back) Musculoskeletal: No clubbing Integumentary: No rashes Neurological: Normal speech, Normal tone, Normal affect Lymphatics: No axilla or inguinal lymphadenopathy External genitalia: Deferred Rectal: Deferred - Studies Laboratory Data (last 24 hrs) 03/28/24 03/28/24 03/28/24 12:27 12:27 12:27 WBC 7.60 Hgb 12.9 Hct 38.5 Plt Count 241 PT 11.9 INR 1.06 Sodium 137 Potassium 4.1 BUN 19 H Creatinine 0.65 Glucose 97 Magnesium 2.1 Total Bilirubin 0.6 AST 19 ALT 23 Alkaline Phosphatase 83 <DelaneyRuth Ann Azeem - Last Filed: 03/28/24 17:36> - Studies Laboratory Data (last 24 hrs) 03/28/24 03/28/24 03/28/24 12:27 12:27 12:27 WBC 7.60 Hgb 12.9 Hct 38.5 Plt Count 241 PT 11.9 INR 1.06 Sodium 137 Potassium 4.1 BUN 19 H Creatinine 0.65 Glucose 97 Magnesium 2.1 Total Bilirubin 0.6 AST 19 ALT 23 Alkaline Phosphatase 83 <Kiya Lopez - Last Filed: 03/29/24 08:12> Assessment and Plan - Plan Angina Serial troponin Serial EKG Cardiology consult Continue Coreg Continue Eliquis for history of a fib Left upper quadrant pain Kidney stone history Renal ultrasound -negative morphine as needed pain Phenergan as needed nausea/vomiting COPD Nebs O2 as needed VTE/GI prophylaxis Eliquis/Protonix - Advance Directives Does patient have a Living Will: No Does patient have a Durable POA for Healthcare: No <DelaneyRuth Ann Azeem - Last Filed: 03/28/24 17:36> - Plan Pt seen and examined. I agree with the note by the WAISTLINE JOINER. Pt is a 79 yo female with past medical history of kidney stone and COPD who presents with chest pain and left upper quadrant abdominal pain for the past 4 weeks. Pt recently had CT abd/pelvis which showed renal stone. Of note, she was in the ER [address] abd/pelvis was unremarkable. Pt was sent home with po bentyl. The abdominal pain progressively worsened and pt came back to the ER for evaluation. Lab studies show wbc 7.6, Hgb 12.9, plt 241, k 4.1, Cr 0.65. CTA chest is negative for PE. At bedside, pt is in NAD. A/P: Chest pain: Will r/o ACS. Trend troponin Q6h (7 <- 6.3). Continue KELSIE therapy. Will continue Cardiology. LUQ abd pain: Imaging study is unremarkable. CTA chest is negative for PE. Will continue prn pain med. Renal ultrasound is negative Hx of Kidney stone: Noted. There is no ureteral stone. Hx of COPD: stable. Not in exacerbation. Will continue prn duoneb and oxygen. DVT ppx: SCD Code: devorah Physician Review Additional Text: l <Kiya Lopez - Last Filed: 03/29/24 08:12>
--- NOTE | 2024-03-28 16:09 | RAD REPORT ---
EXAM DESCRIPTION: US - Renal Ultrasound-Complete - 03/28/2024 3:49 pm CLINICAL HISTORY: abd pain/hydroureter Flank pain COMPARISON: RP EXAM COMPLETE dated 07/26/2011; Chest For Pe Angio dated 03/28/2024; Abdomen Pelvis W Contrast dated 03/14/2024 FINDINGS: Both kidneys are normal in size, shape and echotexture. Small benign cysts. The right kidney measures 9.6 x 4.6 x 3.0 cm. No hydronephrosis, focal mass or perinephric fluid. The left kidney measures 10.5 x 4.6 x 3.6 cm. No hydronephrosis, focal mass or perinephric fluid. The urinary bladder is incompletely distended without gross abnormality seen. IMPRESSION: Unremarkable renal sonogram.
[2024-03-28 16:19] LABS: Troponin High Sensitivity 6.3 pg/mL (<58.9)
[2024-03-28 17:30] VITALS: BMI 19.0
[2024-03-28] MEDS ORDERED: PROMETHAZINE 6.25 MG/5 ML OSYR PO PRN (17:55)
[2024-03-28] MEDS: MORPHINE 4 MG/ML SYR IV PRN (18:33)
[2024-03-28] MEDS ORDERED: PROMETHAZINE 25 MG TABLET PO PRN (18:36)
[2024-03-28] MEDS: carvediloL 6.25 MG TAB PO SCH (20:45)
[2024-03-28] MEDS: APIXABAN 2.5 MG TABLET PO SCH (20:45)
[2024-03-28 21:24] LABS: Thyroid Stimulating Hormone 2.71 uIU/mL (0.358-3.740); Troponin High Sensitivity 6.8 pg/mL (<58.9)
[2024-03-29] MEDS: LEVOTHYROXINE SOD 0.025 MG TAB PO SCH (05:46)
[2024-03-29 07:05] LABS: Absolute Basophils 0.1 K/uL (0-0.5); Absolute Eosinophils 0.2 K/uL (0-0.5); Absolute Lymphocytes (CBC) 1.4 K/uL (0.7-4.9); Absolute Monocytes 0.6 K/uL (0.1-1.3); Absolute Neutrophil 2.9 K/uL (1.8-8.0); Basophils % 1.3 % (0-1.3); Eosinophils % 3.6 % (0-4.4); Hematocrit 31.6 % (36.0-45.0); Hemoglobin 10.7 g/dL (12.0-15.0); Lymphocytes % 26.9 % (15.3-44.8); MCHC 33.9 g/dL (32.0-36.0); MCV 94.2 fL (80-100); MPV 7.9 fL (7.6-11.3); Monocytes % 11.6 % (3.3-12.3); Neutrophils % 56.6 % (41.7-73.7); Nucleated Red Blood Cells % 0.1 % (0-0); Platelets 194 thou/uL (152-406); RBC Red Blood Cell Count 3.36 M/uL (3.86-4.86); Red Cell Distribution Width 13.4 % (12.1-15.2)
[2024-03-29] MEDS: MULTIVITAMIN TAB PO SCH (08:00)
[2024-03-29] MEDS: PANTOPRAZOLE 40 MG INJ IVP SCH (08:00)
[2024-03-29] MEDS: PARoxetine HCL 10 MG TAB PO SCH (08:01)
[2024-03-29] MEDS: ASPIRIN EC 81 MG TAB PO SCH (08:02)
[2024-03-29] MEDS ORDERED: FOLIC ACID 1 MG TABLET PO SCH (09:00)
--- NOTE | 2024-03-29 09:14 | P.CNS ---
Date of Consult: 03/29/24 Chief Complaint: Angina, back pain History of Present Illness: Patient with PMH of atrial fibrillation, presented with left upper quadriant abdominal pain that radiates to the right side of the abdomen, also report right upper side chest pain, no angina, no SOB, no palpitations, no syncope. Allergies Penicillins Allergy (Mild, Verified 03/28/24 17:41) Rash Home medications list reviewed: Yes Home Medications: Apixaban [Eliquis *] 2.5 mg PO BID 03/28/24 Cholecalciferol (Vitamin D3) [Vitamin D3] 1,000 units PO DAILY 03/28/24 Folic Acid 1 gm PO DAILY 03/28/24 Ketorolac Tromethamine 1 drop LEFT EYE TID 03/28/24 Levothyroxine Sodium [Synthroid] 25 mcg PO [id number] 03/28/24 Meloxicam 15 mg PO DAILY 03/28/24 Multivitamin 1 tab PO DAILY 03/28/24 Prednisol Acet 1% Opth [Pred Forte 1%*] 1 drop LEFT EYE QID 03/28/24 carvediloL [Coreg*] 6.25 mg PO BID 03/28/24 - Past Medical/Surgical History -: Hypertension -: A fib -: Hypothyroidism -: COPD -: Cataract -: Hyperlipidemia -: Cataract/glaucoma surgery 4 weeks ago and 1 week ago -: Glucoma Psychosocial/ Personal History: Lives with her son and granddaughter. No assistive devices - Social History Smoking Status: Current every day smoker Alcohol use: No CD- Drugs: No Caffeine use: Yes Place of Residence: Home Review of Systems 10-point ROS is otherwise unremarkable Physical Examination Temp Pulse Resp BP Pulse Ox 97.3 F 68 16 117/57 L 93 03/29/24 04:00 03/29/24 08:00 03/29/24 08:01 03/29/24 08:00 03/29/24 08:01 General: Alert, In no apparent distress HEENT: Atraumatic, PERRLA, Mucous membr. moist/pink, EOMI, Sclerae nonicteric Neck: Supple, 2+ carotid pulse no bruit, No LAD, Without JVD or thyroid abn ormality Respiratory: Clear to auscultation bilaterally, Normal air movement Cardiovascular: Regular rate/rhythm, Normal S1 S2 Gastrointestinal: Normal bowel sounds, No tenderness Musculoskeletal: No tenderness Integumentary: No rashes Neurological: Normal gait, Normal speech, Normal tone, Normal affect Lymphatics: No axilla or inguinal lymphadenopathy Laboratory Data (last 24 hrs) 03/28/24 03/28/24 03/28/24 12:27 12:27 12:27 WBC 7.60 Hgb 12.9 Hct 38.5 Plt Count 241 PT 11.9 INR 1.06 Sodium 137 Potassium 4.1 BUN 19 H Creatinine 0.65 Glucose 97 Magnesium 2.1 Total Bilirubin 0.6 AST 19 ALT 23 Alkaline Phosphatase 83 - Problems (1) Chest pain Current Visit: Yes Status: Acute Plan: No cardiac pain, it is left upper abdominal pain, that is reproducible on exam. Cardiac enzymes are negative. Patient follow up with a construction crew member as outpatient No further inpatient cardiac work up needed. (2) Atrial fibrillation Current Visit: Yes Status: Acute Plan: currently in sinus rhythm continue Coreg and Eliquis
--- NOTE | 2024-03-29 14:34 | P.PN ---
Subjective Date of Service: 03/29/24 Chief Complaint: Angina, back pain Subjective: No new changes (continues with the same type of left upper quad pain that radiates across to right abd and then to back) <Ruth Ann Delaney - Last Filed: 03/29/24 14:32> Date of Service: 03/29/24 <Marcus Lopezsuzy Jimmy - Last Filed: 03/29/24 21:15> Review of Systems 10-point ROS is otherwise unremarkable General: As per HPI Gastrointestinal: Abdominal Pain <Ruth Ann Delaney - Last Filed: 03/29/24 14:32> Physical Examination - Vital Signs Temperature: 97.6 F Blood Pressure: 114/55 Pulse: 59 Respirations: 15 Pulse Ox (%): 97 - Physical Exam General: Alert, In no apparent distress, Oriented x3 HEENT: Atraumatic, Normocephalic Neck: Supple Respiratory: Normal air movement Cardiovascular: Normal pulses, Regular rate/rhythm Capillary refill: <2 Seconds Gastrointestinal: Normal bowel sounds, Tenderness (Mild left upper) Musculoskeletal: No clubbing Integumentary: No rashes Neurological: Normal speech, Normal tone, Normal affect Lymphatics: No axilla or inguinal lymphadenopathy External genitalia: Deferred Rectal: Deferred <Ruth Ann Delaney - Last Filed: 03/29/24 14:32> - Studies Laboratory Data (last 24 hrs) 03/29/24 05:45 WBC 5.10 Hgb 10.7 L D Hct 31.6 L Plt Count 194 <Desirae Lopezlakiadeniz Marquez - Last Filed: 03/29/24 21:15> Assessment And Plan - Plan Angina Serial troponin Serial EKG Cardiology consult Continue Coreg Continue Eliquis for history of a fib Cleared from Cardiology standpoint per Dr. Gil Left upper quadrant pain Kidney stone history Renal ultrasound -negative morphine as needed pain Phenergan as needed nausea/vomiting COPD Nebs O2 as needed VTE/GI prophylaxis Eliquis/Protonix <Ruth Ann Delaney - Last Filed: 03/29/24 14:32> - Plan Pt seen and examined. I agree with the note by the CLIENT ACCOUNT MANAGER. The left rib cage pain is non-cardiac in origin. Will continue prn pain med. Cardiology evaluated her. <KoleedwardbrodieMarcussuzy Jimmy - Last Filed: 03/29/24 21:15>
--- NOTE | 2024-03-29 14:41 | P.DS ---
Admission Date: 03/28/24 Discharge Date: 03/29/24 Reason for Admission: Angina, back pain Consultations: Dr. Gil Brief History of Present Illness: Ms. Angelique Avelar is a 79-year-old female with a past medical history of COPD, hypertension, a. fib, hyperlipidemia, hypothyroidism, and kidney stones. She presented to the emergency department 2 weeks ago with a complaint of left upper abdomen discomfort. A CT scan was done at that time and was negative for any acute findings. She returns today with angina with continued left upper abdomen discomfort around to her back. She complains of increased discomfort with deep inspiration. A CT PE study was performed in the emergency department and found to be negative for any acute findings. Renal ultrasound was performed with the impression of an unremarkable renal sonogram. Ms. Chicas'pranay stopped smoking 2 months ago. She was admitted for angina for consult to cardiology. Initial laboratory findings are unremarkable. Hospital Course: Ms. Avelar was admitted for 23-hour observation to ensure no ACS problems. She is currently in normal sinus rhythm and taking her medications appropriately. Her cholesterol is slightly elevated and it is recommended she take atorva statin. Currently she is stable for discharge. Unfortunately the source of her abdominal pain for the last year was not identified. It is recommended she follow-up with GI and her PCP. <Ruth Ann Delaney - Last Filed: 03/29/24 14:35> Admission Date: 03/29/24 Discharge Date: 03/29/24 Hospital Course: Pt seen and examined. I agree with the note by the MEDICAL SCRIBE. Continue atorvastatin and prn pin med. Cardiology evaluated pt and ruled out cardiac etiology as the source of the left rib cage pain. Pt was advised to follow up with PCP and GI. OK to discharge pt. <Kiya Lopez - Last Filed: 03/29/24 15:46> Discharge Condition: GOOD Vital Signs/Physical Exam: Temp Pulse Resp BP Pulse Ox 97.6 F 59 15 114/55 L 97 03/29/24 14:34 03/29/24 14:34 03/29/24 14:34 03/29/24 14:34 03/29/24 14:34 General: Alert, In no apparent distress, Oriented x3 HEENT: Atraumatic, Normocephalic Neck: Supple Respiratory: Normal air movement Cardiovascular: Normal pulses, Regular rate/rhythm Capillary refill: <2 Seconds Gastrointestinal: Soft and benign, Tenderness (Mildly tender to left upper quadrant) Musculoskeletal: No clubbing Integumentary: No rashes Neurological: Normal gait, Normal speech, Normal tone, Normal affect Lymphatics: No axilla or inguinal lymphadenopathy External genitalia: Deferred Rectal: Deferred Laboratory Data at Discharge: WBC 5.10 thou/uL (4.3-10.9) 03/29/24 05:45 Hgb 10.7 g/dL (12.0-15.0) L D 03/29/24 05:45 Hct 31.6 % (36.0-45.0) L 03/29/24 05:45 Plt Count 194 thou/uL (152-406) 03/29/24 05:45 PT 11.9 SECONDS (9.4-12.5) 03/28/24 12:27 INR 1.06 03/28/24 12:27 Sodium 137 mEq/L (136-145) 03/28/24 12:27 Potassium 4.1 mEq/L (3.5-5.1) 03/28/24 12:27 BUN 19 mg/dL (7-18) H 03/28/24 12:27 Creatinine 0.65 mg/dL (0.55-1.02) 03/28/24 12:27 Glucose 97 mg/dL (74-106) 03/28/24 12:27 Magnesium 2.1 mg/dL (1.6-2.4) 03/28/24 12:27 Total Bilirubin 0.6 mg/dL (0.2-1.0) 03/28/24 12:27 AST 19 U/L (15-37) 03/28/24 12:27 ALT 23 U/L (13-56) 03/28/24 12:27 Alkaline Phosphatase 83 U/L (45-117) 03/28/24 12:27 Triglycerides 82 mg/dL (<150) 03/28/24 15:50 Cholesterol 231 mg/dL (<200) H 03/28/24 15:50 HDL Cholesterol 81 mg/dL (40-60) H 03/28/24 15:50 Cholesterol/HDL Ratio 2.85 03/28/24 15:50 <Delaney,Ruth Ann Azeem - Last Filed: 03/29/24 14:35> Vital Signs/Physical Exam: Temp Pulse Resp BP Pulse Ox 97.6 F 59 15 114/55 L 97 03/29/24 14:34 03/29/24 14:34 03/29/24 14:34 03/29/24 14:34 03/29/24 14:34 Laboratory Data at Discharge: WBC 5.10 thou/uL (4.3-10.9) 03/29/24 05:45 Hgb 10.7 g/dL (12.0-15.0) L D 03/29/24 05:45 Hct 31.6 % (36.0-45.0) L 03/29/24 05:45 Plt Count 194 thou/uL (152-406) 03/29/24 05:45 PT 11.9 SECONDS (9.4-12.5) 03/28/24 12:27 INR 1.06 03/28/24 12:27 Sodium 137 mEq/L (136-145) 03/28/24 12:27 Potassium 4.1 mEq/L (3.5-5.1) 03/28/24 12:27 BUN 19 mg/dL (7-18) H 03/28/24 12:27 Creatinine 0.65 mg/dL (0.55-1.02) 03/28/24 12:27 Glucose 97 mg/dL (74-106) 03/28/24 12:27 Magnesium 2.1 mg/dL (1.6-2.4) 03/28/24 12:27 Total Bilirubin 0.6 mg/dL (0.2-1.0) 03/28/24 12:27 AST 19 U/L (15-37) 03/28/24 12:27 ALT 23 U/L (13-56) 03/28/24 12:27 Alkaline Phosphatase 83 U/L (45-117) 03/28/24 12:27 Triglycerides 82 mg/dL (<150) 03/28/24 15:50 Cholesterol 231 mg/dL (<200) H 03/28/24 15:50 HDL Cholesterol 81 mg/dL (40-60) H 03/28/24 15:50 Cholesterol/HDL Ratio 2.85 03/28/24 15:50 <Kiya Lopez - Last Filed: 03/29/24 15:46> Diet: AHA Activity: Ad bhupinder <Ruth Ann Delaney - Last Filed: 03/29/24 14:35> <Kiya Lopez - Last Filed: 03/29/24 15:46> Home Medications: Apixaban [Eliquis *] 2.5 mg PO BID 03/28/24 Cholecalciferol (Vitamin D3) [Vitamin D3] 1,000 units PO DAILY 03/28/24 Folic Acid 1 gm PO DAILY 03/28/24 Ketorolac Tromethamine 1 drop LEFT EYE TID 03/28/24 Levothyroxine Sodium [Synthroid] 25 mcg PO [id number] 03/28/24 Multivitamin 1 tab PO DAILY 03/28/24 Prednisol Acet 1% Opth [Pred Forte 1%*] 1 drop LEFT EYE QID 03/28/24 carvediloL [Coreg*] 6.25 mg PO BID 03/28/24 Apixaban [Eliquis *] 2.5 mg PO BID 03/29/24 Atorvastatin Calcium [Lipitor] 40 mg PO BEDTIME #90 tab 03/29/24 Hydrocodone 5/APAP 325 [[place] 5/325] 1 tab PO Q6H PRN 7 Days #28 tab 03/29/24 carvediloL [Coreg*] 6.25 mg PO BID tab 03/29/24 New Medications: Atorvastatin Calcium [Lipitor] 40 mg PO BEDTIME #90 tab Hydrocodone 5/APAP 325 [[place] 5/325] 1 tab PO Q6H PRN 7 Days #28 tab PRN Reason: Pain Physician Discharge Instructions: Ms. Avelar was admitted for 23-hour observation to ensure no ACS problems. She is currently in normal sinus rhythm and taking her medications appropriately. Her cholesterol is slightly elevated and it is recommended she take atorvastatin. Currently she is stable for discharge. Unfortunately the source of her abdominal pain for the last year was not identified. It is recommended she follow-up with GI and her PCP. Followup: Betty Chamorro MD [Primary Care Provider] -
[2024-03-29 17:46] VITALS: BP 133/59; TEMP 97.8; O2SAT 91
[2024-03-29] MEDS ORDERED: ATORVASTATIN 40 MG TAB PO SCH (21:00)
--- NOTE | 2024-03-30 16:29 | EKG ---
Test Date: 2024-03-28 Test Time: 13:16:16 [employer] Consultant: KEVIN MEASUREMENT RESULTS: Intervals: Rate: 60 VT: 164 QRSD: 74 QT: 432 QTc: 432 [place]: P: 72 VT: 164 QRS: 63 T: 77 INTERPRETIVE STATEMENTS: Normal sinus rhythm Normal ECG Compared to ECG 05/01/2014 09:46:11 Sinus bradycardia no longer present Electronically Signed On 03-30-24 16:23:47 CDT by Tej Gil
== END 2024-03-29 18:20 | disposition home or self-care (01) | DRG 311 ==
LOC: ER 11:40 → ERHOLD 14:20 → 4TH 14:59 → OBSVTOIN 03-29 14:44
PROVIDERS: ADMIT Hospitalist; ATTEND Hospitalist
DX: I20.9 Angina pectoris, unspecified (principal); I10 Essential (primary) hypertension; I48.91 Unspecified atrial fibrillation; E78.5 Hyperlipidemia, unspecified; E03.9 Hypothyroidism, unspecified; J44.9 Chronic obstructive pulmonary disease, unspecified; F17.200 Nicotine dependence, unspecified, uncomplicated; Z88.0 Allergy status to penicillin; Z79.01 Long term (current) use of anticoagulants; Z79.02 Long term (current) use of antithrombotics/antiplatelets; Z79.890 Hormone replacement therapy; Z79.899 Other long term (current) drug therapy
CPT/HCPCS: 36415; 71275; 76770; 80048; 80061; 80076; 83735; 83880; 84443; 84484; 85025; 85610; 93005; 96374; 96375; 97116; 97161; 99285; G0378; J1170; J2405; J2470; Q9967

== ENCOUNTER 2024-08-10 10:04 | Emergency (ER) | payer MEDICARE, OTHER ==
[2024-08-10 10:27] LABS: Absolute Eosinophils 0.1 K/uL (0-0.5); Absolute Lymphocytes (CBC) 0.4 K/uL (0.7-4.9); Absolute Monocytes 0.3 K/uL (0.1-1.3); Absolute Neutrophil 7.4 K/uL (1.8-8.0); Basophils % 0.2 % (0-1.3); Eosinophils % 1.1 % (0-4.4); Hematocrit 41.9 % (36.0-45.0); Hemoglobin 14.4 g/dL (12.0-15.0); Lymphocytes % 4.3 % (15.3-44.8); MCHC 34.3 g/dL (32.0-36.0); MCV 87.5 fL (80-100); MPV 8.1 fL (7.6-11.3); Monocytes % 4.1 % (3.3-12.3); Neutrophils % 90.3 % (41.7-73.7); Nucleated Red Blood Cells % 0.1 % (0-0); Platelets 206 thou/uL (152-406); RBC Red Blood Cell Count 4.79 M/uL (3.86-4.86); Red Cell Distribution Width 15.5 % (12.1-15.2)
[2024-08-10 10:31] LABS: Specific Gravity 1.028 (1.005-1.030); Urine Bacteria <20 /HPF (<20); Urine Bilirubin 1+ (Negative); Urine Blood 1+ (Negative); Urine Clarity Extremely Turbid (Clear); Urine Color Yellow (Yellow); Urine Culture Reflex Order REFLEXED; Urine Glucose NEGATIVE (Negative); Urine Ketones 2+ (Negative); Urine Microscopic Reflex YN ORDER UMIC; Urine Mucus 3+ /HPF (None Seen); Urine Nitrite NEGATIVE (Negative); Urine Protein 1+ (Negative); Urine RBC <5 /HPF (None Seen); Urine Urobilinogen 1+ (Normal); Urine WBC 20-50 /HPF (<5)
[2024-08-10 10:53] LABS: Albumin 4.2 g/dL (3.4-5.0); Albumin/Globulin Ratio 1.2 (1.1-1.8); Anion Gap 8.1 mEq/L (5.0-15.0); Bilirubin Total 0.9 mg/dL (0.2-1.0); Globulin 3.4 g/dL (2.3-3.5); Potassium 4.1 mEq/L (3.5-5.1); Protein, Total 7.6 g/dL (6.4-8.2)
--- NOTE | 2024-08-10 11:22 | RAD REPORT ---
EXAMINATION: CT ABDOMEN AND PELVIS WITHOUT CONTRAST CLINICAL INDICATION: Abdominal pain TECHNIQUE: CT abdomen and pelvis was performed, as per department protocol. IV contrast and oral was not administered.Axial, sagittal and coronal reconstructions were obtained. One or more of the following dose reduction techniques were used: Automated exposure control, adjustment of the mA and/o r kV according to the patient size, and/or iterative reconstruction. Unless otherwise specified, incidental findings do not require dedicated imaging follow-up. [id number]. COMPARISON: June 2024 FINDINGS: The lack of intravenous and oral contrast limits evaluation of solid organs, vessels and bowel. Hepatic and splenic granulomata. Left abdominal varices The pancreas and adrenals appear grossly normal. Several calcifications within the parenchyma left kidney. No hydronephrosis. 1.5 cm complex cyst left kidney. Additional small renal cysts. No evidence of diverticulitis. Normal appendix No adnexal mass Mild to moderate chronic compression deformity L3 vertebral body IMPRESSION: No acute abnormalities displayed
[2024-08-10] MEDS ORDERED: ONDANSETRON 4 MG/2 ML VIAL ONE ×2 (11:24→14:27)
[2024-08-10] MEDS ORDERED: NA CHLORIDE 0.9% 1,000 ML ONE ×2 (11:25→14:28)
[2024-08-10] MEDS ORDERED: MORPHINE 2 MG/ML SYR ONE ×2 (11:25→14:28)
[2024-08-10] MEDS ORDERED: CEFTRIAXONE 1000 MG/VIAL ONE (11:31)
[2024-08-10 12:39] LABS: Blood Morphology Comment NOT SEEN (NOT SEEN); Platelet Estimate ADEQ; Platelets Clumped FEW; White Blood Cell Scan OK (OK)
--- NOTE | 2024-08-10 16:03 | ER ---
Nurse's Notes [facility] Name: Angelique Avelar Age: 79 yrs Sex: Female : 1945 Arrival Date: 08/10/2024 Time: 10:04 Bed 7 Private MD: Diagnosis: Abdominal pain, Generalized;UTI/ Urinary tract infection, site not specified Presentation: 08/10 10:09 Chief complaint: EMS states: toned out to patient home for N/V/D, ABD pain. Coronavirus ld1 screen: At this time, the client does not indicate any symptoms associated with coronavirus-19. Ebola Screen: No symptoms or risks identified at this time. Risk Assessment: Do you want to hurt yourself or someone else? Patient reports no desire to harm self or others. Onset of symptoms was August 10, 2024. 10:09 Method Of Arrival: EMS: [facility] ld1 10:09 Acuity: NAN 3 ld1 13:33 Initial Sepsis Screen: Does the patient meet any 2 criteria? No. Patient's initial ph sepsis screen is negative. Does the patient have a suspected source of infection? No. Patient's initial sepsis screen is negative. Triage Assessment: 10:09 General: Appears in no apparent distress. comfortable, Behavior is calm, cooperative, ld1 appropriate for age. Pain: Complains of pain in abdomen Pain does not radiate. Pain currently is 7 out of 10 on a pain scale. Quality of pain is described as throbbing, Pain began suddenly. EENT: No signs and/or symptoms were reported regarding the EENT system. Neuro: Level of Consciousness is awake, alert, obeys commands, Oriented to person, place, time, situation. Cardiovascular: Capillary refill < 3 seconds Patient's skin is warm and dry. Respiratory: Airway is patent Respiratory effort is even, unlabored. GI: Abdomen is flat, non-distended, Reports diarrhea, nausea, vomiting. GI: Reports lower abdominal pain, upper abdominal pain. : No signs and/or symptoms were reported regarding the genitourinary system. Derm: No signs and/or symptoms reported regarding the dermatologic system. Musculoskeletal: No signs and/or symptoms reported regarding the musculoskeletal system. Historical: - Allergies: 10:09 PENICILLINS; ld1 - PMHx: 10:09 COPD; Kidney stones; ld1 - Immunization history:: Adult Immunizations up to date. - Infectious Disease History:: Denies. - Social history:: Smoking status: Patient denies any tobacco usage or history of. Screenin:11 [facility] ED Fall Risk Assessment (Adult) History of falling in the last 3 months, ld1 including since admission No falls in past 3 months (0 pts) Confusion or Disorientation No (0 pts) Intoxicated or Sedated No (0 pts) Impaired Gait No (0 pts) Mobility Assist Device Used No (0 pt) Altered Elimination No (0 pt) Score/Fall Risk Level 0 - 2 = Low Risk Oriented to surroundings, Maintained a safe environment, Educated pt \T\ family on fall prevention, incl call for assistance when getting out of bed, Assessed \T\ reinforced patient's understanding of fall precautions, Provided non-skid footwear, Hourly rounding (assess needs \T\ fall precautionary measures) done, Used ambulatory aids as needed (educated on \T\ assisted with), Used gait belt as appropriate. Abuse screen: Denies threats or abuse. Denies injuries from another. Nutritional screening: No deficits noted. Tuberculosis screening: No symptoms or risk factors identified. Assessment: 10:11 Reassessment: See triage assessment. GI: Abdomen is flat, non-distended, Reports lower ld1 abdominal pain, upper abdominal pain, diarrhea, nausea, vomiting. 11:11 Reassessment: Patient appears in no apparent distress at this time. No changes from kc6 previously documented assessment. Patient and/or family updated on plan of care and expected duration. Pain level reassessed. Patient is alert, oriented x 3, equal unlabored respirations, skin warm/dry/pink. 12:11 Reassessment: Patient appears in no apparent distress at this time. No changes from kc6 previously documented assessment. Patient and/or family updated on plan of care and expected duration. Pain level reassessed. Patient is alert, oriented x 3, equal unlabored respirations, skin warm/dry/pink. 13:11 Reassessment: Patient appears in no apparent distress at this time. No changes from kc6 previously documented assessment. Patient and/or family updated on plan of care and expected duration. Pain level reassessed. Patient is alert, oriented x 3, equal unlabored respirations, skin warm/dry/pink. 14:11 Reassessment: Patient appears in no apparent distress at this time. No changes from kc6 previously documented assessment. Patient and/or family updated on plan of care and expected duration. Pain level reassessed. Patient is alert, oriented x 3, equal unlabored respirations, skin warm/dry/pink. 15:11 Reassessment: Patient appears in no apparent distress at this time. No changes from kc6 previously documented assessment. Patient and/or family updated on plan of care and expected duration. Pain level reassessed. Patient is alert, oriented x 3, equal unlabored respirations, skin warm/dry/pink. 16:11 Reassessment: Patient appears in no apparent distress at this time. No changes from kc6 previously documented assessment. Patient and/or family updated on plan of care and expected duration. Pain level reassessed. Patient is alert, oriented x 3, equal unlabored respirations, skin warm/dry/pink. Vital Signs: 10:20 BP 137 / 59; Pulse 73; Resp 20; Pulse Ox 92% on R/A; Weight 44.45 kg; Height 5 ft. 1 ld1 in. ; Pain 7/10; 10:21 Temp 97.8(O); ld1 12:00 BP 128 / 58; Pulse 79; Resp 18; Pulse Ox 94% on R/A; ph 13:33 BP 123 / 59; Pulse 81; Resp 18; Pulse Ox 95% on R/A; ph 16:59 BP 112 / 68; Pulse 85; Resp 18 S; Pulse Ox 98% on R/A; kc6 10:20 Body Mass Index 18.52 (44.45 kg, 154.94 cm) ld1 10:20 Pain Scale: Adult ld1 ED Course: 10:07 Patient arrived in ED. ph 10:07 Erasto Mensah MD is Attending Physician. bo1 10:09 Alecia Bloivar, FLOYD is Primary Nurse. ld1 10:09 Arm band placed on right wrist. ld1 10:10 Triage completed. ld1 10:11 Patient has correct armband on for positive identification. Placed in gown. Bed in low ld1 position. Call light in reach. Side rails up X2. Pulse ox on. NIBP on. Door closed. Noise minimized. Warm blanket given. 10:11 No provider procedures requiring assistance completed. ld1 10:14 Maintain EMS IV. Dressing intact. Good blood return noted. Site clean \T\ dry. Gauge \T\ ld 1 site: 20GRAC. 10:20 Urinalysis w/ reflexes Sent. ld1 11:08 CT Abd/Pelvis - Without Contrast In Process Unspecified. EDMS 13:48 Patient requests pain medication. kc6 17:00 IV discontinued, intact, bleeding controlled, No redness/swelling at site. Pressure kc6 dressing applied. Administered Medications: 11:29 Drug: morphine IVP or IV 2 mg IVP once over 4 mins Route: IVP; Infused Over: 4 mins; ld1 Site: right antecubital; 12:00 Follow up: Response: No adverse reaction ph 11:29 Drug: Ondansetron IVP 4 mg IVP once; over 2 minutes Route: IVP; Site: right antecubital;ld1 12:00 Follow up: Response: No adverse reaction ph 11:29 Drug: NS 0.9% IV 1000 ml IV at 1000 ml once; to be given as a bolus over 60 minutes ld1 Route: IV; Rate: 1000 ml; Site: right antecubital; 12:30 Follow up: Response: No adverse reaction; IV Status: Completed infusion; IV Intake: ph 1000ml 11:33 Drug: Rocephin IV 1 grams IV at bolus once; Given slow IV push per pharmacy ld1 instructions Route: IV; Rate: bolus; Site: left antecubital; 12:03 Follow up: Response: No adverse reaction; IV Status: Completed infusion ph 14:34 Drug: NS 0.9% IV 1000 ml IV at 1 bolus Per protocol; to be given as a bolus over 60 kc6 minutes Route: IV; Rate: 1 bolus; Site: right antecubital; 16:58 Follow up: Response: No adverse reaction; IV Status: Completed infusion; IV Intake: kc6 1000ml 14:34 Drug: morphine IVP or IV 2 mg IVP once over 4 mins Route: IVP; Infused Over: 4 mins; kc6 Site: right antecubital; 16:58 Follow up: Response: No adverse reaction; Pain is decreased kc6 14:34 Drug: Ondansetron IVP 4 mg IVP once; over 2 minutes Route: IVP; Site: right antecubital;kc6 16:58 Follow up: Response: No adverse reaction kc6 Medication: 13:33 VIS not applicable for this client. ph Intake: 12:30 IV: 1000ml; Total: 1000ml. ph 16:58 IV: 1000ml; Total: 2000ml. kc6 Outcome: 16:03 Discharge ordered by . [place] 16:59 Discharged to home via wheelchair, with family, kc6 16:59 Condition: good 16:59 Discharge instructions given to patient, family, Instructed on discharge instructions, follow up and referral plans. no drinking with medication, no driving heavy equipment, medication usage, Demonstrated understanding of instructions, follow-up care, medications, Prescriptions given X 3, 17:00 Patient left the ED. kc6 Signatures: Dispatcher [employer] EDZayra Wooten RN RN Alecia Bolivar RN RN Sarah Rivero RN RN kc6 Makenna, MD JONO Maurer bo1
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
[2024-08-10 17:51] VITALS: TEMP 97.8
[2024-08-10 17:54] VITALS: BP 112/68; O2SAT 98
== END 2024-08-10 17:00 | disposition home or self-care (01) ==
LOC: ER 10:04
DX: N39.0 Urinary tract infection, site not specified (principal); Z87.442 Personal history of urinary calculi
CPT/HCPCS: 96365; 96361; 87088; 85025; 81001; 87086; 36415; 83690; 80053; 74176; 96375; 99284; J2270 ×2; J2405 ×2; J7030 ×2; J0696

== ENCOUNTER 2024-08-11 17:59 | Inpatient (IN) | payer MEDICARE, OTHER ==
[2024-08-11] MEDS ORDERED: METOCLOPRAMIDE 10 MG/2mL INJ ONE (19:51)
[2024-08-11] MEDS ORDERED: ONDANSETRON 4 MG/2 ML VIAL ONE (19:51)
[2024-08-11] MEDS ORDERED: NA CHLORIDE 0.9% 500 ML ONE (19:51)
[2024-08-11 19:53] LABS: Absolute Lymphocytes (CBC) 0.8 K/uL (0.7-4.9); Absolute Monocytes 0.6 K/uL (0.1-1.3); Absolute Neutrophil 4.7 K/uL (1.8-8.0); Basophils % 0.4 % (0-1.3); Eosinophils % 0.2 % (0-4.4); Hematocrit 38.5 % (36.0-45.0); Hemoglobin 13.1 g/dL (12.0-15.0); Lymphocytes % 13.5 % (15.3-44.8); MCH 29.3 pg (27.0-35.0); MCV 86.1 fL (80-100); MPV 7.9 fL (7.6-11.3); Monocytes % 10.2 % (3.3-12.3); Neutrophils % 75.7 % (41.7-73.7); Nucleated Red Blood Cells % 0.1 % (0-0); Platelets 179 thou/uL (152-406); RBC Red Blood Cell Count 4.47 M/uL (3.86-4.86); Red Cell Distribution Width 15.1 % (12.1-15.2)
--- NOTE | 2024-08-11 19:56 | ER ---
Nurse's Notes [facility] Name: Angelique Avelar Age: 79 yrs Sex: Female : 1945 Arrival Date: 08/11/2024 Time: 17:59 Bed 23 Private MD: Diagnosis: Low back pain;Abdominal pain, unspecified;Nausea with vomiting, unspecified Presentation: 08/11 18:28 Chief complaint: Abdominal pain and N/V/D x 3 days, not tolerating fluids. Coronavirus hb screen: At this time, the client does not indicate any symptoms associated with coronavirus-19. Ebola Screen: No symptoms or risks identified at this time. Initial Sepsis Screen: Does the patient meet any 2 criteria? No. Patient's initial sepsis screen is negative. Does the patient have a suspected source of infection? No. Patient's initial sepsis screen is negative. Risk Assessment: Do you want to hurt yourself or someone else? Patient reports no desire to harm self or others. Onset of symptoms was August 09, 2024. 18:28 Method Of Arrival: Wheelchair hb 18:28 Acuity: NAN 3 hb Historical: - Allergies: 18:30 PENICILLINS; hb - PMHx: 18:30 COPD; Kidney stones; hb - Immunization history:: Adult Immunizations up to date. - Infectious Disease History:: Denies. - Social history:: Smoking status: Patient/guardian denies using tobacco, Stopped _ months ago 6. Screenin:00 [facility] ED Fall Risk Assessment (Adult) History of falling in the last 3 months, jb4 including since admission No falls in past 3 months (0 pts) Confusion or Disorientation No (0 pts) Intoxicated or Sedated No (0 pts) Impaired Gait No (0 pts) Mobility Assist Device Used No (0 pt) Altered Elimination No (0 pt) Score/Fall Risk Level 0 - 2 = Low Risk Oriented to surroundings, Maintained a safe environment. Abuse screen: Denies threats or abuse. Nutritional screening: No deficits noted. Tuberculosis screening: No symptoms or risk factors identified. Assessment: 20:00 General: Appears in no apparent distress. comfortable, Behavior is calm, cooperative, jb4 appropriate for age. Pain: Complains of pain in abdomen Pain does not radiate. Pain currently is 10 out of 10 on a pain scale. Neuro: Level of Consciousness is awake, alert, obeys commands, Oriented to person, place, time, situation. Cardiovascular: Patient's skin is warm and dry. Respiratory: Airway is patent Respiratory effort is even, unlabored, Respiratory pattern is regular, symmetrical. GI: Abdomen is flat, non-distended, Abd is soft X 4 quads Abdomen is tender to palpation X 4 quads. Reports lower abdominal pain, diarrhea, nausea. Derm: Skin is intact, Skin is pink, warm \T\ dry. Musculoskeletal: Circulation, motion, and sensation intact. Range of motion: intact in all extremities. 20:46 Reassessment: Patient appears in no apparent distress at this time. Patient and/or jb4 family updated on plan of care and expected duration. Pain level reassessed. Patient is alert, oriented x 3, equal unlabored respirations, skin warm/dry/pink. 22:00 Reassessment: Pt resting in bed with eyes closed, respirations are even and unlabored. jb4 Vital Signs: 18:28 BP 144 / 81; Pulse 75; Resp 18; Temp 97.1(TE); Pulse Ox 96% on R/A; Weight 48.08 kg; hb Height 5 ft. 0 in. ; Pain 10/10; 20:03 BP 194 / 75; Pulse 69; Resp 16; Pulse Ox 97% on R/A; jb4 20:28 BP 141 / 83; Pulse 66; Resp 16; Pulse Ox 99% on 2 lpm NC; jb4 22:15 BP 150 / 71; Pulse 58; Resp 16; Pulse Ox 100% on R/A; jb4 18:28 Body Mass Index 20.70 (48.08 kg, 152.4 cm) hb 18:28 Pain Scale: Adult hb ED Course: 18:00 Patient arrived in ED. al6 18:07 Concetta Castro FNP-C is [facility]. kb 18:07 Erasto Mensah MD is Attending Physician. kb 18:30 Triage completed. hb 18:30 Arm band placed on. hb 18:31 Erasto Mensah MD is Attending Physician. bo1 19:53 CBC with Diff Sent. af3 19:53 CMP Sent. af3 19:53 Lipase Sent. af3 19:53 Inserted saline lock: 20 gauge in right antecubital area, using aseptic technique. af3 Blood collected. Flushed with 10 mL NS. 19:54 Dave Vargas MD is Hospitalizing Provider. bo1 20:00 Patient has correct armband on for positive identification. Bed in low position. Call jb4 light in reach. Side rails up X 1. Provided Education on: plan of care. 08/12 00:13 No provider procedures requiring assistance completed. Patient admitted, IV remains in ha1 place. Administered Medications: 08/11 19:50 Drug: NS 0.9% IV 500 ml 500 ml IV at 1 bolus once; to be given as a bolus over 30 ha1 minutes Volume: 500 ml; Route: IV; Rate: 1 bolus; Site: right antecubital; 20:27 Follow up: Response: No adverse reaction; Marked relief of symptoms; IV Status: jb4 Completed infusion; IV Intake: 500ml 19:52 Drug: metoCLOPramide IVP 10 mg IVP once; over 1 to 2 minutes Route: IVP; Site: right ha1 antecubital; 20:26 Follow up: Response: No adverse reaction; Marked relief of symptoms jb4 19:54 Drug: Ondansetron IVP 4 mg IVP once; over 2 minutes Route: IVP; Site: right antecubital;ha1 20:26 Follow up: Response: No adverse reaction; Marked relief of symptoms jb4 20:12 Drug: fentaNYL (PF) IVP 50 mcg IVP once Route: IVP; Site: right antecubital; jb4 20:26 Follow up: Response: No adverse reaction; Marked relief of symptoms; Pain is decreased jb4 Medication: 20:00 VIS not applicable for this client. jb4 Intake: 20:27 IV: 500ml; Total: 500ml. jb4 Outcome: 19:55 Decision to Hospitalize by Provider. bo1 08/12 00:13 Admitted to Tele accompanied by tech, via wheelchair, room 413, with chart, ha1 Condition: stable Instructed on the need for admit, Demonstrated understanding of instructions, 00:29 Patient left the ED. ha1 Signatures: Concetta Castro, WOODWORKING MACHINE OFFBEARER-C WOODWORKING MACHINE OFFBEARER-CkMerari Lange RN RN Guillermo Pérez RN RN jb4 Leidy Aguilar RN RN ha1 Erasto Mensah MD MD bo1 Skelton, Ciarra af3 Ousmane, Radha al6
--- NOTE | 2024-08-11 19:56 | EDPHYS ---
Physician Documentation [facility] Name: Angelique Avelar Age: 79 yrs Sex: Female : 1945 Arrival Date: 08/11/2024 Time: 17:59 Bed 23 Private MD: ED Physician Erasto Mensah HPI: 08/11 19:46 This 79 yrs old Female presents to ER via Wheelchair with complaints of Abdominal Pain, bo1 Vomiting, Won't Eat. 19:46 The patient presents to the emergency department with nausea, vomiting, diarrhea, bo1 abdominal pain, Back pain. Onset: The symptoms/episode began/occurred gradually. 20:04 The patient has not recently seen a physician, The patient has been recently seen by a [facility] physician: The patient has been recently seen at the [facility] Emergency Department, yesterday, Myself and no criteria was found to warrant an admission or obs. Historical: - Allergies: 18:30 PENICILLINS; hb - PMHx: 18:30 COPD; Kidney stones; hb - Immunization history:: Adult Immunizations up to date. - Infectious Disease History:: Denies. - Social history:: Smoking status: Patient/guardian denies using tobacco, Stopped _ months ago 6. ROS: 19:56 Constitutional: Negative for fever or chills bo1 19:56 Constitutional: Negative for chills, fever, 19:56 Cardiovascular: Negative for chest pain, 19:56 Respiratory: Negative for cough, shortness of breath, 19:56 Abdomen/GI: Positive for abdominal pain, nausea and vomiting, 19:56 Abdomen/GI: Positive for Poor oral intake , 19:56 Back: Positive for pain at rest, pain with movement, Hx of the same back pain in 2023 where other ER reported compression fractures, 19:56 MS/extremity: Negative for pain, swelling, 19:56 Skin: Negative for rash, 19:56 Neuro: Negative for numbness, tingling, 19:56 All other systems are negative, Exam: 20:02 Constitutional: This is an elderly who is awake, alert, and in mild acute distress. bo1 20:02 Constitutional: The patient appears alert, awake, non-toxic, frail, in obvious distress, mildly distressed, 20:02 Eyes: Sclera: icterus, is not appreciated, 20:02 Neck: External neck: is normal, no acute changes, 20:02 Cardiovascular: Rate: normal, Rhythm: regular, Pulses: no pulse deficits are appreciated, 20:02 Respiratory: the patient does not display signs of respiratory distress, Respirations: normal, no acute changes, Breath sounds: are clear throughout, 20:02 Abdomen/GI: Inspection: distension, Mild, not tense, 20:02 Back: Kyphotic, 20:02 Musculoskeletal/extremity: Extremities: all appear grossly normal, with no appreciated pain with palpation, DVT Exam: no pain, no swelling, no tenderness, 20:02 Skin: no rash present. Vital Signs: 18:28 BP 144 / 81; Pulse 75; Resp 18; Temp 97.1(TE); Pulse Ox 96% on R/A; Weight 48.08 kg; hb Height 5 ft. 0 in. ; Pain 10/10; 20:03 BP 194 / 75; Pulse 69; Resp 16; Pulse Ox 97% on R/A; jb4 20:28 BP 141 / 83; Pulse 66; Resp 16; Pulse Ox 99% on 2 lpm NC; jb4 22:15 BP 150 / 71; Pulse 58; Resp 16; Pulse Ox 100% on R/A; jb4 18:28 Body Mass Index 20.70 (48.08 kg, 152.4 cm) hb 18:28 Pain Scale: Adult hb MDM: 19:41 Medical Screening Exam initiated bo1 19:58 Differential diagnosis: Nonspecific abd pain, Back pain, cause unknown. Data reviewed: bo1 vital signs, lab test result(s). Consideration of Admission/Observation Patient was admitted/placed on observation. Discussed with the pt that because she was seen yesterday that she will be placed in for obs. Management of patient was discussed with the following: Hospitalist: Dr Alicia DE LA CRUZ. ED course: Pt has been seen in the chair and labs ordered, meds ordered. 08/11 19:38 Order name: CBC with Diff; Complete Time: 20:06 bo1 08/11 19:38 Order name: CMP; Complete Time: 20:26 bo1 08/11 19:38 Order name: Lipase; Complete Time: 20:26 bo1 08/11 19:38 Order name: Urinalysis w/ reflexes bo1 08/11 20:37 Order name: CBC with Automated Diff EDMS 08/11 20:37 Order name: CBC with Automated Diff EDKY 08/11 20:37 Order name: Comprehensive Metabolic Panel EDKY 08/11 20:37 Order name: Comprehensive Metabolic Panel EDKY 08/11 20:40 Order name: Fecal Leukocyte Stain EDKY 08/11 20:40 Order name: Stool Culture EDKY 08/11 19:38 Order name: IV Saline Lock; Complete Time: 19:53 bo1 08/11 19:38 Order name: Labs collected and sent; Complete Time: 19:53 bo1 Administered Medications: 19:50 Drug: NS 0.9% IV 500 ml 500 ml IV at 1 bolus once; to be given as a bolus over 30 ha1 minutes Volume: 500 ml; Route: IV; Rate: 1 bolus; Site: right antecubital; 20:27 Follow up: Response: No adverse reaction; Marked relief of symptoms; IV Status: jb4 Completed infusion; IV Intake: 500ml 19:52 Drug: metoCLOPramide IVP 10 mg IVP once; over 1 to 2 minutes Route: IVP; Site: right ha1 antecubital; 20:26 Follow up: Response: No adverse reaction; Marked relief of symptoms jb4 19:54 Drug: Ondansetron IVP 4 mg IVP once; over 2 minutes Route: IVP; Site: right antecubital;1 20:26 Follow up: Response: No adverse reaction; Marked relief of symptoms jb4 20:12 Drug: fentaNYL (PF) IVP 50 mcg IVP once Route: IVP; Site: right antecubital; jb4 20:26 Follow up: Response: No adverse reaction; Marked relief of symptoms; Pain is decreased jb4 Disposition Summary: 08/11/24 19:55 Hospitalization Ordered Notes: Hospitalization Status: Observation bo1 Provider: Dave Vargas boAna Location: Telemetry/MedSurg (observation) bo1 Condition: Fair bo1 Problem: chronic bo1 Symptoms: are unchanged bo1 Bed/Room Type: Standard [facility] Room Assignment: 413(08/11/24 23:23) ha1 Diagnosis - Low back pain bo1 - Abdominal pain, unspecified bo1 - Nausea with vomiting, unspecified bo1 Forms: - Medication Reconciliation Form bo1 - SBAR form bo1 - Leadership Thank You Letter bo1 Signatures: Dispatcher [employer] EDMerari Yang RN RN Guillermo Pérez, RN RN jb4 Leidy Aguilar, FLOYD RN ha1 Erasto Mensah MD MD bo1 Corrections: (The following items were deleted from the chart) 19:39 19:39 CBC+H.LAB.BRZ ordered. EDMS EDMS 19:39 19:39 COMPREHENSIVE METABOLIC PANEL+C.LAB.BRZ ordered. EDMS EDMS 19:39 19:39 LIPASE+C.LAB.BRZ ordered. EDMS EDMS 19:39 19:39 Urinalysis+U.LAB.BRZ ordered. EDMS EDMS 23:23 19:55 bo1 ha1
[2024-08-11 20:09] LABS: Albumin 3.4 g/dL (3.4-5.0); Anion Gap 9.7 mEq/L (5.0-15.0); Bilirubin Total 0.6 mg/dL (0.2-1.0); Globulin 3.3 g/dL (2.3-3.5); Potassium 3.7 mEq/L (3.5-5.1); Protein, Total 6.7 g/dL (6.4-8.2)
[2024-08-11] MEDS ORDERED: FENTANYL CITR 100 MCG/2 ML ONE (20:09)
[2024-08-11] MEDS ORDERED: DIPHENOX/ATROP SULF 1 TAB PO PRN (20:38)
--- NOTE | 2024-08-11 20:39 | P.HP ---
Certification for Inpatient Patient admitted to: Observation With expected LOS: <2 Midnights Practitioner: I am a practitioner with admitting privileges, knowledge of patient current condition, hospital course, and medical plan of care. Services: Services provided to patient in accordance with Admission requirements found in Title 42 Section 412.3 of the Code of Federal Regulations Patient History Date of Service: 08/11/24 Reason for admission: Nausea vomiting abdominal pain History of Present Illness: Patient is 79 years of age has been sick for about 2 days apparently she had a steak and felt sick so did her son started complaining of nausea vomiting diarrhea came to the emergency room yesterday and was discharged CT scan of the abdomen was negative patient has gotten worse feels weak dry heaves not able to eat Allergies Penicillins Allergy (Mild, Verified 03/28/24 17:41) Rash Home Medications: Apixaban [Eliquis *] 2.5 mg PO BID 03/28/24 Cholecalciferol (Vitamin D3) [Vitamin D3] 1,000 units PO DAILY 03/28/24 Folic Acid 1 gm PO DAILY 03/28/24 Ketorolac Tromethamine 1 drop LEFT EYE TID 03/28/24 Levothyroxine Sodium [Synthroid] 25 mcg PO [id number] 03/28/24 Multivitamin 1 tab PO DAILY 03/28/24 Prednisol Acet 1% Opth [Pred Forte 1%*] 1 drop LEFT EYE QID 03/28/24 carvediloL [Coreg*] 6.25 mg PO BID 03/28/24 Apixaban [Eliquis *] 2.5 mg PO BID 03/29/24 Atorvastatin Calcium [Lipitor] 40 mg PO BEDTIME #90 tab 03/29/24 carvediloL [Coreg*] 6.25 mg PO BID tab 03/29/24 Hydrocodone 5/APAP 325 [Gordon 5/325] 1 tab PO Q6H PRN 7 Days #28 tab 03/30/24 - Past Medical/Surgical History -: Hypertension -: A fib -: Hypothyroidism -: COPD -: Cataract -: Hyperlipidemia -: Cataract/glaucoma surgery 4 weeks ago and 1 week ago -: Glucoma Psychosocial/ Personal History: Lives with her son and granddaughter. No assistive devices - Social History Alcohol use: No CD- Drugs: No Caffeine use: Yes Review of Systems 10-point ROS is otherwise unremarkable General: Weakness Gastrointestinal: Nausea, Vomiting, Abdominal Pain, Diarrhea Physical Examination - Vital Signs Temperature: 97.1 F Blood Pressure: 144/81 Pulse: 75 Respirations: 18 Pulse Ox (%): 96 - Physical Exam General: Alert, Oriented x3, Mild distress Neck: Supple Respiratory: Clear to auscultation bilaterally Cardiovascular: No edema, Regular rate/rhythm, Normal S1 S2 Gastrointestinal: Normal bowel sounds, No rebound, No guarding, Other (Very mild generalized tenderness on deep palpation) Musculoskeletal: No clubbing, No swelling Integumentary: No rashes, No breakdown - Studies Laboratory Data (last 24 hrs) 08/11/24 08/11/24 19:44 19:44 WBC 6.20 Hgb 13.1 Hct 38.5 Plt Count 179 Sodium 139 Potassium 3.7 BUN 19 H Creatinine 0.66 Glucose 107 H Total Bilirubin 0.6 AST 17 ALT 20 Alkaline Phosphatase 68 Lipase 16 Assessment and Plan - Problems (Diagnosis) (1) Gastroenteritis Current Visit: Yes Status: Acute Plan: Patient is 79 years of age admitted with acute onset of vomiting diarrhea dry heaves for the past 2 days she came to the emergency room yesterday was discharged CT scan of the abdomen was negative came back again unable to keep a nything down labs reviewed fairly unremarkable vital signs are currently stable she has had back fractures and a history of A-fib plan to admit IV fluids rehydrate start on some Rocephin check some blood cultures apparently her son also ate the steak and felt sick - Advance Directives Does patient have a Living Will: No Does patient have a Durable POA for Healthcare: No
[2024-08-11] MEDS ORDERED: CEFTRIAXONE 1000 MG/VIAL ONE (22:31)
[2024-08-11] MEDS ORDERED: MORPHINE 2 MG/ML SYR ONE (22:31)
[2024-08-11] MEDS ORDERED: NA CHLORIDE 0.9% 1,000 ML ONE (22:31)
[2024-08-11] MEDS ORDERED: NA CHLORIDE 0.9% 50 ML ONE (22:36)
[2024-08-11] MEDS: NA CHLORIDE 0.9% 1,000 ML IV SCH (22:40)
[2024-08-11] MEDS: CEFTRIAXONE 1,000 MG in NA CHLORIDE 0.9% 50 ML IVPB SCH (22:40)
[2024-08-11] MEDS: MORPHINE 2 MG/ML SYR IV PRN (22:41)
[2024-08-12 00:48] VITALS: BMI 19.3
[2024-08-12] MEDS: MORPHINE 2 MG/ML SYR IV ONE (01:12)
[2024-08-12 06:16] LABS: Absolute Lymphocytes (CBC) 0.8 K/uL (0.7-4.9); Absolute Monocytes 0.5 K/uL (0.1-1.3); Absolute Neutrophil 3.6 K/uL (1.8-8.0); Basophils % 0.3 % (0-1.3); Eosinophils % 0.1 % (0-4.4); Hematocrit 33.8 % (36.0-45.0); Hemoglobin 11.6 g/dL (12.0-15.0); Lymphocytes % 16.8 % (15.3-44.8); MCH 29.8 pg (27.0-35.0); MCHC 34.2 g/dL (32.0-36.0); MCV 87.2 fL (80-100); MPV 8.6 fL (7.6-11.3); Monocytes % 10.5 % (3.3-12.3); Neutrophils % 72.3 % (41.7-73.7); Platelets 141 thou/uL (152-406); RBC Red Blood Cell Count 3.88 M/uL (3.86-4.86)
[2024-08-12 06:27] LABS: Specific Gravity 1.029 (1.005-1.030); Sqamous Epithelial <5 /HPF (None Seen); Urine Bacteria None Seen /HPF (<20); Urine Bilirubin NEGATIVE (Negative); Urine Blood Negative (Negative); Urine Clarity Clear (Clear); Urine Color Yellow (Yellow); Urine Culture Reflex Order NOT NEEDED; Urine Glucose NEGATIVE (Negative); Urine Ketones 4+ (Negative); Urine Microscopic Reflex YN ORDER UMIC; Urine Mucus Slight /HPF (None Seen); Urine Nitrite NEGATIVE (Negative); Urine Protein 1+ (Negative); Urine RBC <5 /HPF (None Seen); Urine Urobilinogen Normal (Normal); Urine WBC <5 /HPF (<5); Urine pH 5.5 (5.0-7.0)
[2024-08-12 06:31] LABS: Albumin 2.9 g/dL (3.4-5.0); Albumin/Globulin Ratio 1.1 (1.1-1.8); Anion Gap 9.9 mEq/L (5.0-15.0); Bilirubin Total 0.3 mg/dL (0.2-1.0); Globulin 2.7 g/dL (2.3-3.5); Potassium 3.9 mEq/L (3.5-5.1); Protein, Total 5.6 g/dL (6.4-8.2)
[2024-08-12] MEDS: ONDANSETRON 4 MG/2 ML VIAL IV PRN (06:45)
[2024-08-12] MEDS: HYDRALAZINE HCL 20 MG/ML VIAL IV PRN (09:49)
[2024-08-12] MEDS: MORPHINE 4 MG/ML SYR IV ONE (13:02)
[2024-08-12] MEDS: METRONIDAZOLE 500mg IVPB 500 MG/100 ML BAG IV SCH (16:34)
--- NOTE | 2024-08-12 18:35 | P.PN ---
Subjective Date of Service: 08/12/24 Chief Complaint: Nausea vomiting abdominal pain Patient denies any nausea or vomiting today. She states that the diarrhea has stopped. She is complaining of persistent abdominal pain. No recorded fever. Physical Examination - Vital Signs Temperature: 98.8 F Blood Pressure: 116/55 Pulse: 74 Respirations: 16 Pulse Ox (%): 94 - Studies Laboratory Data (last 24 hrs) 08/11/24 08/11/24 19:44 19:44 WBC 6.20 Hgb 13.1 Hct 38.5 Plt Count 179 Sodium 139 Potassium 3.7 BUN 19 H Creatinine 0.66 Glucose 107 H Total Bilirubin 0.6 AST 17 ALT 20 Alkaline Phosphatase 68 Lipase 16 Assessment And Plan - Plan Physical examination General: Alert and oriented x3, mild distress due to pain. HEENT: Conjunctiva not pale, anicteric sclera Neck: Supple, no elevated JVD Heart: Heart sounds 1 and 2 normal, regular rhythm, normal rate, no pedal edema Lungs: Clear to auscultation bilaterally, adequate breath sounds bilaterally, no rhonchi or crackles. Abdomen: Soft, nondistended, epigastric tenderness, normal bowel sounds. Extremities: No tenderness, no deformity Skin: Normal skin turgor, no rash, no nodules or ulcers. Neuro: No focal motor deficit. Normal speech. Psychiatry: Normal mood, no agitation. Diagnosis Acute gastroenteritis Hypertension Chronic atrial fibrillation Hypothyroidism COPD Gastritis Plan Acute gastroenteritis Gastroenteritis likely related to food poisoning. Continue IV Rocephin. Add IV Flagyl given persistent symptoms. Avoid antidiarrheal medications for now. Analgesics as needed IV hydration. Avoid antacids for now Chronic atrial fibrillation Stable Resume home medications. Hypothyroidism Resume home dose Synthroid. COPD Stable without acute exacerbation. Bronchodilators as needed. DVT prophylaxis: Lovenox Advanced directive: full code.
[2024-08-12] MEDS: PREDNISOLONE 1% OPTH SOLN 5ML LEFT EYE SCH (20:12)
[2024-08-12] MEDS: carvediloL 6.25 MG TAB PO SCH (21:48)
[2024-08-12] MEDS: APIXABAN 2.5 MG TABLET PO SCH (23:00)
[2024-08-13] MEDS: PROMETHAZINE INJ 25 MG/ML AMP IV ONE (02:21)
[2024-08-13] MEDS: LEVOTHYROXINE SOD 0.025 MG TAB PO SCH (06:13)
[2024-08-13 07:38] LABS: Anion Gap 9.6 mEq/L (5.0-15.0); Potassium 3.6 mEq/L (3.5-5.1)
[2024-08-13] MEDS ORDERED: ENOXAPARIN 40 MG/0.4 ML SQ SCH (09:00)
[2024-08-13] MEDS: OPTH OPTH SCH (09:00)
[2024-08-13] MEDS: PREDNISOLONE 1% OPTH SCH (09:00)
--- NOTE | 2024-08-13 18:11 | P.PN ---
Subjective Date of Service: 08/13/24 Chief Complaint: Nausea vomiting abdominal pain Patient is complaining of persistent abdominal pain, however she is tolerating diet. No vomiting today. No recorded fever. Physical Examination - Vital Signs Temperature: 98.3 F Blood Pressure: 143/65 Pulse: 61 Respirations: 18 Pulse Ox (%): 93 - Studies Laboratory Data (last 24 hrs) 08/13/24 05:31 Sodium 140 Potassium 3.6 BUN 14 Creatinine 0.41 L Glucose 99 Assessment And Plan - Plan Physical examination General: Alert and oriented x3, mild distress due to pain. HEENT: Anicteric sclera Neck: Supple. Heart: Heart sounds 1 and 2 normal, regular rhythm, normal rate, no pedal edema Lungs: Clear to auscultation bilaterally, adequate breath sounds bilaterally, no rhonchi or crackles. Abdomen: Soft, nondistended, epigastric tenderness, normal bowel sounds. Extremities: No tenderness, no deformity Skin: Normal skin turgor, no rash, no nodules or ulcers. Neuro: No focal motor deficit. Normal speech. Psychiatry: Normal mood, no agitation. Diagnosis Acute gastroenteritis Hypertension Chronic atrial fibrillation Hypothyroidism COPD Gastritis Plan Acute gastroenteritis Gastroenteritis likely related to food poisoning. Clinically improving slowly Continue IV Rocephin and Flagyl Analgesics as needed IV hydration. Avoid antacids for now Advance diet as tolerated. Chronic atrial fibrillation Stable Continue home medications. Hypothyroidism Continue home dose Synthroid. COPD Stable without acute exacerbation. Bronchodilators as needed. DVT prophylaxis: Lovenox Advanced directive: full code.
[2024-08-13] MEDS: HYDROCODONE/APAP 5/325 MG TAB PO PRN (22:05)
[2024-08-13] MEDS: MELATONIN 3 MG TABLET PO ONE (22:47)
[2024-08-14] MEDS: HYDROCODONE/APAP 7.5/325 MG TAB PO PRN (04:46)
[2024-08-14 06:02] LABS: Anion Gap 9.1 mEq/L (5.0-15.0); Potassium 3.1 mEq/L (3.5-5.1)
[2024-08-14] MEDS: POTASSIUM CL SA 10 MEQ TAB PO SCH ×2 (09:25→14:31)
--- NOTE | 2024-08-14 14:06 | P.PN ---
Subjective Date of Service: 08/14/24 Chief Complaint: Nausea vomiting abdominal pain Patient reports improvement in her abdominal pain, however reports decreased oral intake. No recorded fever. Physical Examination - Vital Signs Temperature: 98.2 F Blood Pressure: 116/55 Pulse: 73 Respirations: 18 Pulse Ox (%): 91 Assessment And Plan - Plan Physical examination General: Alert and oriented x3, mild distress due to pain. HEENT: Anicteric sclera Neck: Supple. Heart: Heart sounds 1 and 2 normal, regular rhythm, normal rate, no pedal edema Lungs: Clear to auscultation bilaterally, adequate breath sounds bilaterally, no rhonchi or crackles. Abdomen: Soft, nondistended, mild epigastric tenderness, normal bowel sounds. Extremities: No tenderness, no deformity Skin: Normal skin turgor, no rash, no nodules or ulcers. Neuro: No focal motor deficit. Normal speech. Psychiatry: Normal mood, no agitation. Diagnosis Acute gastroenteritis Hypertension Chronic atrial fibrillation Hypothyroidism COPD Gastritis Plan Acute gastroenteritis Gastroenteritis likely related to food poisoning. Clinically improving. Continue IV Rocephin and Flagyl Analgesics as needed IV hydration. Avoid antacids for now Advance diet as tolerated. Increase activity as tolerated. Chronic atrial fibrillation Stable Continue home medications. Hypothyroidism Continue home dose Synthroid. COPD Stable without acute exacerbation. Bronchodilators as needed. DVT prophylaxis: Lovenox Advanced directive: full code.
[2024-08-14] MEDS: ENSURE CLEAR 200 ML CAN PO SCH (20:36)
[2024-08-15 06:27] LABS: Absolute Eosinophils 0.1 K/uL (0-0.5); Absolute Lymphocytes (CBC) 1.2 K/uL (0.7-4.9); Absolute Monocytes 0.9 K/uL (0.1-1.3); Absolute Neutrophil 3.4 K/uL (1.8-8.0); Basophils % 0.7 % (0-1.3); Eosinophils % 1.9 % (0-4.4); Hematocrit 29.8 % (36.0-45.0); Hemoglobin 10.4 g/dL (12.0-15.0); Lymphocytes % 21.7 % (15.3-44.8); MCH 30.3 pg (27.0-35.0); MCHC 34.8 g/dL (32.0-36.0); MCV 87.2 fL (80-100); MPV 8.1 fL (7.6-11.3); Monocytes % 15.5 % (3.3-12.3); Neutrophils % 60.2 % (41.7-73.7); Nucleated Red Blood Cells % 0.1 % (0-0); Platelets 170 thou/uL (152-406); RBC Red Blood Cell Count 3.42 M/uL (3.86-4.86); Red Cell Distribution Width 15.2 % (12.1-15.2)
[2024-08-15 06:46] LABS: Anion Gap 8.1 mEq/L (5.0-15.0); Potassium 4.1 mEq/L (3.5-5.1)
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
[2024-08-15 08:56] LABS: Thyroid Stimulating Hormone 2.64 uIU/mL (0.358-3.740)
[2024-08-15] MEDS ORDERED: propofoL 200 MG/20 ML VIAL IV ONE ×2 (09:32→09:33)
[2024-08-15] MEDS ORDERED: ONDANSETRON 4 MG/2 ML VIAL ONE (09:53)
[2024-08-15] MEDS ORDERED: SODIUM CHLORIDE 0.9% 10ML INJ IV PRN (10:16)
[2024-08-15] MEDS: SUCRALFATE 1GM/10ML UCUP PO SCH (12:41)
[2024-08-15] MEDS: PANTOPRAZOLE 40 MG INJ IVP SCH (12:41)
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
[2024-08-16] MEDS: MELATONIN 5 MG TABLET PO PRN (00:32)
[2024-08-16 06:40] LABS: Absolute Eosinophils 0.2 K/uL (0-0.5); Absolute Lymphocytes (CBC) 1.6 K/uL (0.7-4.9); Absolute Monocytes 0.5 K/uL (0.1-1.3); Absolute Neutrophil 3.2 K/uL (1.8-8.0); Basophils % 0.6 % (0-1.3); Eosinophils % 4.1 % (0-4.4); Hematocrit 32.1 % (36.0-45.0); Hemoglobin 10.8 g/dL (12.0-15.0); Lymphocytes % 28.5 % (15.3-44.8); MCH 29.4 pg (27.0-35.0); MCHC 33.6 g/dL (32.0-36.0); MCV 87.5 fL (80-100); MPV 7.8 fL (7.6-11.3); Monocytes % 9.8 % (3.3-12.3); Nucleated Red Blood Cells % 0.1 % (0-0); Platelets 200 thou/uL (152-406); RBC Red Blood Cell Count 3.67 M/uL (3.86-4.86); Red Cell Distribution Width 15.3 % (12.1-15.2)
[2024-08-16 07:00] LABS: Albumin 2.4 g/dL (3.4-5.0); Alkaline Phosphatase 46 U/L (45-117); Anion Gap 6.7 mEq/L (5.0-15.0); BUN Blood Urea Nitrogen 3 mg/dL (7-18); Bicarbonate 29 mEq/L (21-32); Bilirubin Total 0.3 mg/dL (0.2-1.0); Globulin 2.4 g/dL (2.3-3.5); Glomerular Filtration Rate 103 ml/min (=/>90); Glucose Level 78 mg/dL (74-106); Magnesium 1.9 mg/dL (1.6-2.4); Potassium 3.7 mEq/L (3.5-5.1); Protein, Total 4.8 g/dL (6.4-8.2); Sodium Level 142 mEq/L (136-145)
[2024-08-16 07:02] LABS: ALT/SGPT < 14 U/L (13-56); AST/SGOT < 10 U/L (15-37)
[2024-08-16 09:05] LABS: Anisocytosis 1+; Atypical Lymphocytes 9 %; Band Neutrophils 1 % (0-1); Blood Morphology Comment NOTED (NOT SEEN); Differential Total Cells Count 100; Eosinophils 3 % (0-3); Lymphocytes 22 % (15-42); Metamyelocytes 1 % (0-0); Monocytes 7 % (0-10); Platelet Estimate ADEQ; Segmented Neutrophils 57 % (40-80)
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
[2024-08-17 07:12] LABS: Magnesium 1.9 mg/dL (1.6-2.4)
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
[2024-08-17] MEDS: DOCUSATE NA 100 MG CAP PO ONE (10:48)
[2024-08-17] MEDS: DOCUSATE NA 100 MG CAP PO SCH (20:31)
[2024-08-17 22:41] VITALS: O2SAT 93
[2024-08-18 06:55] LABS: Anion Gap 10.7 mEq/L (5.0-15.0); Potassium 2.7 mEq/L (3.5-5.1)
[2024-08-18] MEDS: KCL 20 MEQ/100 mL IVPB 20 MEQ/100 ML BAG IV SCH (09:01)
[2024-08-18] MEDS: POTASSIUM 25 MEQ EFFERV TAB PO ONE (10:31)
[2024-08-18 17:37] VITALS: BP 150/77; TEMP 98.2
[2024-08-18] MEDS ORDERED: ENSURE HIGH PROTEIN 237 ML CAN PO SCH (21:00)
--- NOTE | 2024-08-22 12:38 | EKG ---
Test Date: 2024-08-16 Test Time: 19:32:36 Care Center Manager: DONITA MEASUREMENT RESULTS: Intervals: Rate: 104 MN: 160 QRSD: 76 QT: 340 QTc: 447 [place]: P: 61 MN: 160 QRS: 71 T: 71 INTERPRETIVE STATEMENTS: Sinus tachycardia with premature atrial complexes with aberrant conduction Cannot rule out Anterior infarct, age undetermined Abnormal ECG Compared to ECG 03/28/2024 13:16:16 Atrial premature complex(es) now present Aberrant conduction of supraventricular beat(s) now present Myocardial infarct finding now present Sinus rhythm no longer present Electronically Signed On 08-22-24 12:23:32 ICT TEACHER by Tej Gil
== END 2024-08-18 17:20 | disposition home or self-care (01) | DRG 384 ==
LOC: ER 17:59 → ERHOLD 20:32 → 4TH 23:40 → OBSVTOIN 08-13 15:13 → 4TH 08-14 10:30
PROVIDERS: ADMIT Internal Medicine Sleep Medicine; ATTEND Hospitalist
PROC: 0DB68ZX Excision of Stomach, Via Natural or Artificial Opening Endoscopic, Diagnostic (ICD-10-PCS; 2024-08-15)
PROC: 0DB98ZX Excision of Duodenum, Via Natural or Artificial Opening Endoscopic, Diagnostic (ICD-10-PCS; principal; 2024-08-15 09:45)
DX: K26.3 Acute duodenal ulcer without hemorrhage or perforation (principal); I48.20 Chronic atrial fibrillation, unspecified; K29.70 Gastritis, unspecified, without bleeding; E78.5 Hyperlipidemia, unspecified; E03.9 Hypothyroidism, unspecified; K52.9 Noninfective gastroenteritis and colitis, unspecified; J44.9 Chronic obstructive pulmonary disease, unspecified; Z88.0 Allergy status to penicillin; Z79.01 Long term (current) use of anticoagulants; Z79.02 Long term (current) use of antithrombotics/antiplatelets; Z79.890 Hormone replacement therapy; Z79.899 Other long term (current) drug therapy; Z87.891 Personal history of nicotine dependence
CPT/HCPCS: 36415; 80048; 80053; 81001; 83690; 83735; 84132; 84439; 84443; 85025; 88305; 88312; 93005; 96361; 96374; 96375; 99285; G0378; J0360; J0696; J2270; J2405; J2470; J2550; J2704; J2765; J3010; J3480; J7030; J7040

== ENCOUNTER 2025-04-15 14:51 | Emergency (ER) | payer MEDICARE, OTHER ==
[2025-04-15 15:38] LABS: Absolute Lymphocytes (CBC) 1.7 K/uL (0.7-4.9); Hematocrit 35.8 % (36.0-45.0); Hemoglobin 12.3 g/dL (12.0-15.0); MCH 33.0 pg (27.0-35.0); MCHC 34.5 g/dL (32.0-36.0); MCV 95.5 fL (80-100); MPV 7.7 fL (7.6-11.3); Nucleated RBC Absolute Count 0.0 (0-0); Nucleated Red Blood Cells % 0.1 % (0-0); RBC Red Blood Cell Count 3.74 M/uL (3.86-4.86); White Blood Count 8.90 thou/uL (4.3-10.9)
[2025-04-15 15:50] LABS: PT Prothrombin Time 12.6 SECONDS (10-13.0); Protime INR 1.12
[2025-04-15 16:02] LABS: ALT/SGPT 15 U/L (13-56); AST/SGOT 16 U/L (15-37); Albumin 3.3 g/dL (3.4-5.0); Albumin/Globulin Ratio 1.1 (1.1-1.8); Alkaline Phosphatase 55 U/L (45-117); Anion Gap 7.8 mEq/L (5.0-15.0); BUN Blood Urea Nitrogen 16 mg/dL (7-18); Globulin 3.0 g/dL (2.3-3.5); Glucose Level 91 mg/dL (74-106); Magnesium 2.0 mg/dL (1.6-2.4); NT PRO-BNP 327 pg/mL (<450); Potassium 3.8 mEq/L (3.5-5.1); T4,Total 9.1 ug/dL (4.8-13.9); Troponin High Sensitivity 5.2 pg/mL (<58.9)
[2025-04-15 16:07] LABS: Bilirubin Indirect, Calculated 0.3 mg/dL (0.2-0.8); Thyroid Stimulating Hormone 4.170 uIU/mL (0.358-3.740)
[2025-04-15 16:48] LABS: Differential Total Cells Count 100; Segmented Neutrophils 76 % (40-80)
[2025-04-15 16:49] LABS: Anisocytosis 2+; Blood Morphology Comment NOTED (NOT SEEN); Poikilocytosis 1+
[2025-04-15 16:50] LABS: Ovalocytes SLIGHT
--- NOTE | 2025-04-15 17:55 | RAD REPORT ---
EXAMINATION: CT Abdomen Pelvis W Contrast CLINICAL INDICATION: Female, 80 years old. LUQ, h/o bowel resection;Abd pain TECHNIQUE: CT abdomen and pelvis was performed, after the administration of IV contrast, as per [facility] protocol. Axial, sagittal and coronal reconstructions were obtained. One or more of the following dose reduction techniques were used: Automated exposure control, adjustment of the mA and k V according to patient size, and iterative reconstruction. Unless otherwise specified, incidental findings do not require dedicated imaging follow-up. COMPARISON: No prior exam. FINDINGS: LOWER CHEST: The visualized lung bases are clear. LIVER: Normal in size and contour. No focal lesion. BILIARY SYSTEM: Gallbladder is decompressed limiting evaluation. No suspicious abnormalities. SPLEEN: Normal size. No focal lesion. PANCREAS: No mass, ductal dilation, or syeda-pancreatic fluid. ADRENALS: Normal; no mass. KIDNEYS: Normal size and contour. Small cortical cysts on the left, benign in appearance No hydroneph rosis. URINARY BLADDER: Unremarkable. GASTROINTESTINAL TRACT: No evidence of free air, significant intra-abdominal free fluid, bowel obstru ction or abscess. Mild to moderate stool burden throughout the colon. Distal colonic diverticulosis without evidence of acute diverticulitis. Anastomotic small bowel suture lines in the central and right hemiabdomen. APPENDIX: Normal appendix. LYMPH NODES: No lymphadenopathy. MUSCULOSKELETAL: No acute or suspicious osseous abnormality. Mild central wedge compression deformity at L3, stable. ADDITIONAL FINDINGS: None. IMPRESSION: No acute or concerning abnormalities seen in the abdomen or pelvis. Findings as above.
--- NOTE | 2025-04-15 17:59 | RAD REPORT ---
EXAM: CT Soft Tissue Neck W/Contr INDICATION: [facility] MAIN no SWELLING Bed Name: 7 TECHNIQUE: Helical CT examination of the neck with IV contrast. Sagittal and coronal reformations wer e generated. This exam was performed according to our departmental dose-optimization program, which includes automated exposure control, adjustment of the mA and/or kV according to patient size and/or use of iterative reconstruction technique. COMPARISON: None. FINDINGS: Mucosal spaces: Nasopharynx, oropharynx, oral cavity, larynx and hypopharynx are normal. No suspiciou s masses. Epiglottis is normal in configuration. True vocal cords cords are normally situated. Piriform sinuses are well-aerated. Lymph Nodes: No pathologic appearing cervical lymph nodes. Salivary Glands: Asymmetric swelling, hyperenhancement, and adjacent fat stranding along the left par otid gland. Fat stranding extends caudally surrounding and deep to the left sternocleidomastoid and posterior cervical triangle. No intraglandular or extraglandular ductal dilation or a calculus. Other salivary glands are unremarkable Thyroid Gland: Normal Included Intracranial Structures: Normal Included Orbits: Normal Paranasal Sinuses: Predominantly clear Tympanomastoid Cavities: Normal Vascular Structures: Normal Osseous Structures: No acute osseous abnormality. Included Lung Apices: Normal IMPRESSION: Acute appearing sialoadenitis of the left parotid gland. No ductal dilation or a calculus identified.
[2025-04-15] MEDS ORDERED: CLINDAMYCIN 900MG/D5W 900 MG/50 ML IVPB IV ONE (18:01)
--- NOTE | 2025-04-15 18:10 | ER ---
Nurse's Notes [facility] Name: Angelique Avelar Age: 80 yrs Sex: Female : 1945 Arrival Date: 04/15/2025 Time: 14:51 Bed 7 Private MD: Diagnosis: Acute sialoadenitis Presentation: 04/15 15:06 Chief complaint: Patient states: I started having a knot behind my ear, feeling jb4 flushed, and like my lymph nodes were swollen yesterday, I am having LUQ pain, and JIMY intermittent arm numbness. Coronavirus screen: At this time, the client does not indicate any symptoms associated with coronavirus-19. Ebola Screen: No symptoms or risks identified at this time. Initial Sepsis Screen: Does the patient meet any 2 criteria? RR > 20 per min. Yes Does the patient have a suspected source of infection? No. Patient's initial sepsis screen is negative. Risk Assessment: Do you want to hurt yourself or someone else? Patient reports no desire to harm self or others. Onset of symptoms was March 15, 2025. Transition of care: patient was not received from another setting of care. 15:06 Method Of Arrival: Ambulatory jb4 15:06 Acuity: NAN 3 jb4 Historical: - Allergies: 15:08 PENICILLINS; jb4 - PMHx: 15:08 COPD; Kidney stones; HTN (Kidney stones); High Cholesterol (Kidney stones); a-fib jb4 (Kidney stones); - PSHx: 15:08 Intestine (Kidney stones); jb4 - Immunization history:: Adult Immunizations up to date. - Infectious Disease History:: Denies. - Social history:: Smoking status: Patient denies any tobacco usage or history of. Screenin:32 [facility] ED Fall Risk Assessment (Adult) History of falling in the last 3 months, nh2 including since admission No falls in past 3 months (0 pts) Confusion or Disorientation No (0 pts) Intoxicated or Sedated No (0 pts) Impaired Gait No (0 pts) Mobility Assist Device Used No (0 pt) Altered Elimination No (0 pt) Score/Fall Risk Level 0 - 2 = Low Risk Oriented to surroundings, Maintained a safe environment, Educated pt \T\ family on fall prevention, incl call for assistance when getting out of bed, Assessed \T\ reinforced patient's understanding of fall precautions. Abuse screen: Denies threats or abuse. Denies injuries from another. Nutritional screening: No deficits noted. Tuberculosis screening: No symptoms or risk factors identified. Assessment: 15:32 General: Appears uncomfortable, Behavior is calm, cooperative, appropriate for age. nh2 Pain: Complains of pain in left upper quadrant Pain does not radiate. Pain currently is 7 out of 10 on a pain scale. Quality of pain is described as aching, Pain began 2-3 days ago. Is intermittent. Neuro: Level of Consciousness is awake, alert, obeys commands, Oriented to person, place, time, situation, Appropriate for age Denies headache. Cardiovascular: Patient's skin is warm and dry. Rhythm is sinus rhythm. Respiratory: Airway is patent Trachea midline Respiratory effort is even, unlabored, Respiratory pattern is regular, symmetrical, Breath sounds are clear bilaterally. Denies cough, shortness of breath. GI: Abdomen is round distended, Patient currently denies nausea, vomiting. : No signs and/or symptoms were reported regarding the genitourinary system. Denies burning with urination. EENT:. EENT: Reports lymph node swelling on the L side of neck that is tender to the touch. Derm: Skin is intact, Skin is pink, warm \T\ dry. Musculoskeletal: Circulation, motion, and sensation intact. Range of motion: intact in all extremities. 16:30 Reassessment: Patient and/or family updated on plan of care and expected duration. Pain nh2 level reassessed. Patient is alert, oriented x 3, equal unlabored respirations, skin warm/dry/pink. 17:30 Reassessment: Patient and/or family updated on plan of care and expected duration. Pain nh2 level reassessed. Patient is alert, oriented x 3, equal unlabored respirations, skin warm/dry/pink. Patient denies pain at this time. 18:13 Reassessment: Patient appears in no apparent distress at this time. Patient and/or kj2 family updated on plan of care and expected duration. Pain level reassessed. Patient is alert, oriented x 3, equal unlabored respirations, skin warm/dry/pink. Vital Signs: 15:06 BP 171 / 78; Pulse 67; Resp 24; Temp 98.3(O); Pulse Ox 98% on R/A; Weight 46.72 kg (R); jb4 Height 5 ft. 0 in. (R); Pain 7/10; 15:32 BP 168 / 71; Pulse 64; Resp 19; Temp 98.4(O); Pulse Ox 99% on R/A; nh2 16:30 BP 125 / 57; Pulse 63; Resp 19; Pulse Ox 97% on R/A; nh2 17:30 BP 133 / 71; Pulse 62; Resp 18; Pulse Ox 99% on R/A; nh2 18:15 BP 134 / 70; Pulse 63; Resp 18; Temp 98.1; Pulse Ox 98% on R/A; kj2 15:06 Body Mass Index 20.12 (46.72 kg, 152.4 cm) jb4 15:06 Pain Scale: Adult jb4 ED Course: 14:58 Patient arrived in ED. al6 14:59 Sue Hung MD is Attending Physician. sp3 15:01 Jesse Gonzalez, RN is Primary Nurse. bp 15:08 Triage completed. jb4 15:08 Arm band placed on right wrist. jb4 15:32 Patient has correct armband on for positive identification. Bed in low position. Call nh2 light in reach. Side rails up X 1. Provided Education on: using call light for assistance. 15:32 Initial lab(s) drawn, by me, sent to lab. Inserted saline lock: 20 gauge in right nh2 antecubital area, using aseptic technique. Blood collected. Flushed with 10 mL NS. 15:36 No provider procedures requiring assistance completed. nh2 16:58 CT Soft Tissue Neck W/contr In Process Unspecified. EDMS 16:58 CT Abd/Pelvis - IV Contrast Only In Process Unspecified. EDMS 18:41 IV discontinued, intact, bleeding controlled, No redness/swelling at site. Pressure nh2 dressing applied. Administered Medications: 18:05 Drug: Clindamycin IVPB 900 mg IVPB once over 30 mins; (mix in 50 mL) Route: IVPB; nh2 Infused Over: 30 mins; Site: right antecubital; 18:42 Follow up: Response: No adverse reaction; IV Status: Completed infusion; IV Intake: [id number] Medication: 15:32 VIS not applicable for this client. nh2 Intake: 18:42 IV: 50ml; Total: 50ml. nh2 Outcome: 18:09 Discharge ordered by . sp3 18:40 Discharged to home ambulatory, nh2 18:40 Condition: stable 18:40 Discharge instructions given to patient, Instructed on discharge instructions, follow up and referral plans. no driving heavy equipment, medication usage, Demonstrated understanding of instructions, follow-up care, medications, Prescriptions given X 2, 18:41 Patient left the ED. nh2 Signatures: Dispatcher [employer] EDMS Guillermo Pérez RN RN jb4 Jesse Gonzalez RN RN Sue Awad MD MD sp3 Isadora Alvarado RN RN kj2 Addi Altamirano Jr, RN RN nh2 Radha Romeo6
--- NOTE | 2025-04-15 18:10 | EDPHYS ---
Physician Documentation [facility] Name: Angelique Avelar Age: 80 yrs Sex: Female : 1945 Arrival Date: 04/15/2025 Time: 14:51 Bed 7 Private MD: ED Physician Sue Hung HPI: 04/15 15:27 This 80 yrs old Female presents to ER via Ambulatory with complaints of Facial sp3 Swelling, Pain - side. 15:27 80-year-old female with history of hypertension, hyperlipidemia, atrial fibrillation, sp3 kidney stones, COPD, now presents to the ED with chief complaint left-sided soft tissue neck swelling over the last 24 to 48 hours. Patient also has acute on chronic abdominal pain. She states she is status post bowel resection earlier this year. She denies any thyroid problems. She denies any difficulty swallowing or airway compromise. Review of systems negative for headache, fever, posterior neck pain, chest pain, shortness of breath, vomiting, diarrhea, back pain, rash, bleeding, or any other signs or symptoms on ROS at this time. She denies sick contacts or travel history.. Historical: - Allergies: 15:08 PENICILLINS; jb4 - PMHx: 15:08 COPD; Kidney stones; HTN (Kidney stones); High Cholesterol (Kidney stones); a-fib jb4 (Kidney stones); - PSHx: 15:08 Intestine (Kidney stones); jb4 - Immunization history:: Adult Immunizations up to date. - Infectious Disease History:: Denies. - Social history:: Smoking status: Patient denies any tobacco usage or history of. ROS: 15:29 Constitutional: Negative for fever, chills, and weight loss, Eyes: Negative for injury, sp3 pain, redness, and discharge, ENT: Negative for injury, pain, and discharge, Cardiovascular: Negative for chest pain, palpitations, and edema, Respiratory: Negative for shortness of breath, cough, wheezing, and pleuritic chest pain, Back: Negative for injury and pain, MS/Extremity: Negative for injury and deformity, Skin: Negative for injury, rash, and discoloration, Neuro: Negative for headache, weakness, numbness, tingling, and seizure, Psych: Negative for depression, anxiety, suicide ideation, homicidal ideation, and hallucinations, Allergy/Immunology: Negative for hives, rash, and allergies, Hematologic/Lymphatic: Negative for swollen nodes, abnormal bleeding, and unusual bruising, 15:29 All other systems are negative, Exam: 15:29 Constitutional: This is a well developed, well nourished patient who is awake, alert, sp3 and in no acute distress. Head/Face: Normocephalic, atraumatic. Eyes: Pupils equal round and reactive to light, extra-ocular motions intact. Lids and lashes normal. Conjunctiva and sclera are non-icteric and not injected. Cornea within normal limits. Periorbital areas with no swelling, redness, or edema. ENT: Nares patent. No nasal discharge, no septal abnormalities noted. External auditory canals are clear. Oropharynx with no redness, swelling, or masses, exudates, or evidence of obstruction, uvula midline. Mucous membranes moist. Chest/axilla: Normal chest wall appearance and motion. Nontender with no deformity. No lesions are appreciated. Cardiovascular: Regular rate and rhythm with a normal S1 and S2. No gallops, murmurs, or rubs. Normal PMI, no JVD. No pulse deficits. Respiratory: Lungs have equal breath sounds bilaterally, clear to auscultation and percussion. No rales, rhonchi or wheezes noted. No increased work of breathing, no retractions or nasal flaring. Back: No spinal tenderness. No costovertebral tenderness. Full range of motion. Skin: Warm, dry with normal turgor. Normal color with no rashes, no lesions, and no evidence of cellulitis. MS/ Extremity: Pulses equal, no cyanosis. Neurovascular intact. Full, normal range of motion. Neuro: Awake and alert, GCS 15, oriented to person, place, time, and situation. Cranial nerves II-XII grossly intact. Motor strength 5/5 in all extremities. Sensory grossly intact. Cerebellar exam normal. Normal gait. Psych: Awake, alert, with orientation to person, place and time. Behavior, mood, and affect are within normal limits. 15:29 Neck: Bilateral neck swelling left greater than right over the thyroid area. Area is soft and fluctuant but no erythema or abscess noted., 15:30 Abdomen/GI: Mild abdominal pain left upper quadrant. No peritoneal signs, rebound or sp3 guarding., 15:31 ECG was reviewed by the Attending Physician. EKG demonstrates normal sinus rhythm at 64 sp3 bpm with normal intervals, normal QRS, normal axis, normal ST/T-segment's without evidence of acute ischemia. Vital Signs: 15:06 BP 171 / 78; Pulse 67; Resp 24; Temp 98.3(O); Pulse Ox 98% on R/A; Weight 46.72 kg (R); jb4 Height 5 ft. 0 in. (R); Pain 7/10; 15:32 BP 168 / 71; Pulse 64; Resp 19; Temp 98.4(O); Pulse Ox 99% on R/A; nh2 16:30 BP 125 / 57; Pulse 63; Resp 19; Pulse Ox 97% on R/A; nh2 17:30 BP 133 / 71; Pulse 62; Resp 18; Pulse Ox 99% on R/A; nh2 18:15 BP 134 / 70; Pulse 63; Resp 18; Temp 98.1; Pulse Ox 98% on R/A; kj2 15:06 Body Mass Index 20.12 (46.72 kg, 152.4 cm) jb4 15:06 Pain Scale: Adult jb4 MDM: 15:00 Medical Screening Exam initiated sp3 15:30 Data reviewed: vital signs, nurses notes, old medical records, lab test result(s), EKG, sp3 radiologic studies. ED course: 80-year-old female with neck swelling. Consider thyroid abnormality, lymph node swelling, or other neck process. Abdominal pain also present and mild in nature. Consider adhesions versus colitis versus bowel pathology. Workup will include routine labs, thyroid studies, CT scan of the soft tissue neck and abdomen pelvis with IV contrast. Disposition pending workup and patient course.. 18:08 ED course: Sialoadenitis noted on the left parotid gland without stone. CT abdomen sp3 pelvis with no abnormality. Patient is PCN allergic therefore we will treat with clindamycin, warm compresses and follow-up with ENT.. 04/15 15:17 Order name: Basic Metabolic Panel; Complete Time: 16:30 sp3 04/15 15:17 Order name: CBC with Diff; Complete Time: 16:52 sp3 04/15 15:17 Order name: LFT's; Complete Time: 16:30 sp3 04/15 15:17 Order name: Magnesium; Complete Time: 16:30 sp3 04/15 15:17 Order name: NT PRO-BNP; Complete Time: 16:30 sp3 04/15 15:17 Order name: PT-INR; Complete Time: 16:30 3 04/15 15:17 Order name: Troponin HS; Complete Time: 16:30 sp3 04/15 15:17 Order name: TSH; Complete Time: 16:30 sp3 04/15 15:17 Order name: T3 Free; Complete Time: 16:30 sp3 04/15 15:17 Order name: T4,Total; Complete Time: 16:30 sp3 04/15 15:43 Order name: Manual Differential; Complete Time: 16:52 EDMS 04/15 16:10 Order name: T4 Free; Complete Time: 16:30 EDMS 04/15 15:17 Order name: CT Soft Tissue Neck W/contr; Complete Time: 18:06 sp3 04/15 15:17 Order name: CT Abd/Pelvis - IV Contrast Only; Complete Time: 18:06 3 04/15 15:17 Order name: EKG; Complete Time: 15:17 3 04/15 15:17 Order name: Cardiac monitoring; Complete Time: 15:28 3 04/15 15:17 Order name: EKG - Nurse/Tech; Complete Time: 15:28 3 04/15 15:17 Order name: IV Saline Lock; Complete Time: 15:28 3 04/15 15:17 Order name: Labs collected and sent; Complete Time: 15:28 3 04/15 15:17 Order name: O2 Per Protocol; Complete Time: 15:28 3 04/15 15:17 Order name: O2 Sat Monitoring; Complete Time: 15:28 3 Administered Medications: 18:05 Drug: Clindamycin IVPB 900 mg IVPB once over 30 mins; (mix in 50 mL) Route: IVPB; nh2 Infused Over: 30 mins; Site: right antecubital; 18:42 Follow up: Response: No adverse reaction; IV Status: Completed infusion; IV Intake: [id number] Disposition Summary: 04/15/25 18:09 Discharge Ordered Notes: Location: Home sp3 Condition: Stable sp3 Diagnosis - Acute sialoadenitis sp3 Followup: sp3 - With: Private Physician - When: Upon discharge from the Emergency Department - Reason: Continuance of care Discharge Instructions: - Discharge Summary Sheet sp3 - Parotitis sp3 - Salivary Gland Infection sp3 Forms: - Medication Reconciliation Form sp3 - Antibiotic Education sp3 - Prescription Opioid Use sp3 - Patient Portal Instructions sp3 - Leadership Thank You Letter sp3 Prescriptions: - Clindamycin HCl 300 mg Oral Capsule - take 1 capsule ORAL route every 6 hours for 10 days; 40 capsule; Refills: 0, sp3 Product Selection Permitted - Tramadol 50 mg Oral Tablet - take 1 tablet ORAL route every 8 hours as needed; 12 tablet; Refills: 0, sp3 Product Selection Permitted Signatures: Dispatcher [employer] EDMS Guillermo Pérez, RN RN jb4 Sue Hung MD MD sp3 Addi Altamirano Jr, RN RN nh2 Corrections: (The following items were deleted from the chart) 15:17 15:17 BASIC METABOLIC PANEL+C.LAB.BRZ ordered. EDMS EDMS 15:17 15:17 CBC+H.LAB.BRZ ordered. EDMS EDMS 15:17 15:17 HEPATIC FUNCTION+C.LAB.BRZ ordered. EDMS EDMS 15:17 15:17 MAGNESIUM+C.LAB.BRZ ordered. EDMS EDMS 15:17 15:17 PROBNP+C.LAB.BRZ ordered. EDMS EDMS 15:17 15:17 PROTIME (+INR)+COAG.LAB.BRZ ordered. EDMS EDMS 15:17 15:17 Troponin High Sensitivity+C.LAB.BRZ ordered. EDMS EDMS 15:17 15:17 THYROID STIMULAT HORMONE+C.LAB.BRZ ordered. EDMS EDMS 15:17 15:17 T3 FREE+C.LAB.BRZ ordered. EDMS EDMS 15:17 15:17 T4,TOTAL+C.LAB.BRZ ordered. EDMS EDMS
[2025-04-15 19:08] VITALS: BP 134/70; TEMP 98.1; O2SAT 98
== END 2025-04-15 18:41 | disposition home or self-care (01) ==
LOC: ER 14:51
DX: K11.21 Acute sialoadenitis (principal); R10.12 Left upper quadrant pain; I10 Essential (primary) hypertension; I48.91 Unspecified atrial fibrillation; J44.9 Chronic obstructive pulmonary disease, unspecified
CPT/HCPCS: 96365; 93005; 85025; 80048; 36415; 83735; 85610; 80076; 84436; 84443; 84484; 84481; 84439; 83880; 70491; 74177; 99284; Q9967